=== PATIENT | male | born 1960 | race Caucasian/White ===

== ENCOUNTER 2016-04-19 02:39 | Emergency (ER) | payer OTHER ==
[~2016-04-19] VITALS: Ht 177.8 cm; Wt 77.2 kg
[~2016-04-19 02:39] MED LIST: GLYB1.253 PO; LISI-515 PO; LORA-373 PO; METO100T PO; ZOFR4TAB PO
[2016-04-19] MEDS: SODIUM CHLOR 0.9% 1000 ML INJ 1,000 ML IV SCH ×2 (02:54→03:36)
[2016-04-19 02:55] VITALS: BP 194/101; PULSE 93; RESP 18; TEMP 98.2; O2SAT 99
[2016-04-19] MEDS ORDERED: ONDANSETRON HCL 4 MG/2 ML VIAL IV ONE ×2 (03:00→03:45)
--- NOTE | 2016-04-19 03:05 | PD ---
HPI Chief Complaint: nausea/vomiting Time Seen by Provider: 02:48 Travel History International Travel<30 days: No Contact w/Intl Traveler<30days: No Traveled to known affect area: No History of Present Illness HPI The patient is a 55-year-old male, [id number] diabetic, who has a history of gastroparesis. He states that he has been vomiting since 8 PM tonight. He states that he can usually be given fluids and Zofran and he quits vomiting and can go home. Usually doesn't check his blood sugars at home but here there around the 120 range. PFSH Past Medical History Asthma: No Autoimmune Disease: No Anxiety: No Depression: No Cancer: Yes (PROSTATE IN 2011) Cardiovascular Problems: Yes High Cholesterol: Yes Chemotherapy: No COPD: No Cerebrovascular Accident: No Diabetes: Yes Diminished Hearing: No Diverticulitis: No Endocrine: Yes Gastrointestinal Disorders: Yes (GASTROPARESIS) GERD: No Genitourinary: No Headaches: No Hiatal Hernia: No Heparin Induced Thrombocytopen: No Hypertension: Yes Immune Disorder: No Implanted Vascular Access Dvce: No Kidney Stones: No Musculoskeletal: No Neurologic: No Psychiatric: No Reproductive: No Respiratory: No Immunizations Current: Yes Migraines: No Pancreatitis: No Radiation Therapy: Yes (IN 2011) Renal Failure: No Seizures: No Sickle Cell Disease: No Thyroid Disease: No Triglycerides - High: Yes Ulcer: No PNEUMOCCOCAL Vaccine (Year): 2 Past Surgical History Abdominal Surgery: Yes (INGUINAL HERNIA) AICD: No Arteriovenous Shunt: No Cardiac Surgery: No Ear Surgery: No Endocrine Surgery: No Eye Surgery: No Genitourinary Surgery: No Gynecologic Surgery: No Insulin Pump: No Joint Replacement: No Neurologic Surgery: No Oral Surgery: No Pacemaker: No Thoracic Surgery: No Other Surgery: Yes (INGUINAL HERNIA REPAIR) Social History Alcohol Use: Yes (Socially ) Tobacco Use: No Substance Use: No Allergies-Medications (Allergen,Severity, Reaction): Coded Allergies: HMG-CoA Reductase Inhibitors (Verified Allergy, Severe, Twitching, 04/19/16 ) MYALGIA Reported Meds & Prescriptions Reported Meds & Active Scripts Active Zofran (Ondansetron HCl) 8 Mg Tab 8 Mg PO TID Reported Lorazepam 0.5 Mg Tab 0.5 Mg PO DAILY PRN Zofran (Ondansetron HCl) 4 Mg Tab 4 Mg PO Q6HR PRN Metoprolol Tartrate 100 Mg Tab 100 Mg PO BID Lisinopril 20 Mg Tab 20 Mg PO DAILY Glyburide 1.25 Mg Tab 1.25 Mg PO DAILY Take with meals at the same time each day Review of Systems Except as stated in HPI: all other systems reviewed are Neg Physical Exam Narrative GENERAL: Well-nourished, well-developed patient in moderate apparent distress with his nausea. SKIN: Warm and dry. HEAD: Normocephalic. EYES: No scleral icterus. No injection or drainage. NECK: Supple, trachea midline. No JVD or lymphadenopathy. CARDIOVASCULAR: Regular rate and rhythm without murmurs, gallops, or rubs. RESPIRATORY: Breath sounds equal bilaterally. No accessory muscle use. GASTROINTESTINAL: Abdomen soft, non-tender, nondistended. No guarding or rebound is present. MUSCULOSKELETAL: No cyanosis, or edema. BACK: Nontender without obvious deformity. No CVA tenderness. Data Data Last Documented VS Vital Signs Date Time Temp Pulse Resp B/P Pulse Ox O2 Delivery O2 Flow Rate FiO2 04/19/16 03:46 81 18 156/92 97 Room Air 04/19/16 02:55 98.2 Orders Ondansetron Inj (Zofran Inj) (04/19/16 03:00) Sodium Chlor 0.9% 1000 Ml Inj (Ns 1000 M (04/19/16 03:00) Ondansetron Inj (Zofran Inj) (04/19/16 03:45) Sodium Chlor 0.9% 1000 Ml Inj (Ns 1000 M (04/19/16 03:45) MDM Medical Decision Making Medical Screen Exam Complete: Yes Emergency Medical Condition: Yes Medical Record Reviewed: Yes Differential Diagnosis Gastroparesis, gastroenteritis, gastritis, dehydration Narrative Course It is now 0350 and the patient feels much better and wants to go home. He will be given 8 mg Zofran prescription. He needs to increase clear liquids and rest at home. If this is persistent, he should follow-up with his primary care physician next week. Additional Instructions: Rest and taking the Zofran 8 mg 3 times a day will probably work for you. Also , as you know, you need to increase her liquid intake. You probably will want to follow-up with her primary care physician next week. Med/Other Pt SpecificInfo: Prescription(s) given Scripts Ondansetron (Zofran)8 Mg Tab8 Mg PO TID #21 TAB Ref 0 Prov:Reji Richardson MD 04/19/16 Disposition: 01 DISCHARGE HOME Condition: Stable Reji Richardson MD Apr 19, 2016 03:04
[2016-04-19 03:09] VITALS: BP 165/82; PULSE 92; RESP 16; O2SAT 99
[2016-04-19] MEDS ORDERED: ZOFR8TAB PO (03:29)
[2016-04-19] MEDS ORDERED: SODIUM CHLOR 0.9% 1000 ML INJ 1,000 ML IV SCH (03:45)
[2016-04-19 03:46] VITALS: BP 156/92; PULSE 81; RESP 18; O2SAT 97
[2016-04-19 04:45] VITALS: BP 155/89
== END 2016-04-19 04:40 | disposition home or self-care (01) ==
LOC: PHED 02:39
DX: K31.84 Gastroparesis (principal); E11.9 Type 2 diabetes mellitus without complications; I10 Essential (primary) hypertension; E78.00 Pure hypercholesterolemia, unspecified
CPT/HCPCS: 96361; 96374; 96376; 99283; J2405; J7030

== ENCOUNTER 2016-06-22 05:36 | Emergency (ER) | payer OTHER ==
[~2016-06-22] VITALS: Ht 177.8 cm; Wt 75.0 kg
[~2016-06-22 05:36] MED LIST changes: +ZOFR8TAB PO
[2016-06-22 05:41] VITALS: BP 187/109; PULSE 93; RESP 18; TEMP 97.5; O2SAT 100
[2016-06-22] MEDS ORDERED: ONDANSETRON HCL 4 MG/2 ML VIAL IV PUSH ONE ×2 (06:00→06:30)
[2016-06-22] MEDS ORDERED: SODIUM CHLOR 0.9% 1000 ML INJ 1,000 ML IV ONE ×2 (06:00→06:30)
--- NOTE | 2016-06-22 06:02 | PD ---
HPI Chief Complaint: GI Complaint Time Seen by Provider: 05:51 Travel History International Travel<30 days: No Contact w/Intl Traveler<30days: No Traveled to known affect area: No History of Present Illness HPI 55 year old male presents to the emergency department for complaint of 2 days of nausea vomiting and generalized weakness. Patient is a type II diabetic with history of gastroparesis. Patient has had multiple visits to the emergency department for similar complaint. Patient denies chest pain shortness of breath abdominal pain or flank pain. No report of hematemesis or coffee-ground emesis. No report of diarrhea. Patient rates his pain 0/10 intensity. Patient states he was unable to manage the symptoms as an outpatient so follow decided to come to the emergency room for evaluation. He typically responds to IV fluids and Zofran. PFSH Past Medical History Narrative Medical Diabetes, gastroparesis, prostate cancer, dyslipidemia, hypertension, radiation therapy, hypertriglyceridemia, inguinal herniorrhaphy; alcohol use-socially; nursing notes reviewed Asthma: No Autoimmune Disease: No Anxiety: No Depression: No Cancer: Yes (PROSTATE IN 2011) Cardiovascular Problems: Yes High Cholesterol: Yes Chemotherapy: No COPD: No Cerebrovascular Accident: No Diabetes: Yes Patient Takes Glucophage: No Diminished Hearing: No Diverticulitis: No Endocrine: Yes Gastrointestinal Disorders: Yes (GASTROPARESIS) GERD: No Genitourinary: No Headaches: No Hiatal Hernia: No Heparin Induced Thrombocytopen: No Hypertension: Yes Immune Disorder: No Implanted Vascular Access Dvce: No Kidney Stones: No Musculoskeletal: No Neurologic: No Psychiatric: No Reproductive: No Respiratory: No Immunizations Current: Yes Migraines: No Pancreatitis: No Radiation Therapy: Yes (IN 2011) Renal Failure: No Seizures: No Sickle Cell Disease: No Thyroid Disease: No Triglycerides - High: Yes Ulcer: No Tetanus Vaccination: < 5 Years Influenza Vaccination: Yes PNEUMOCCOCAL Vaccine (Year): 2 Past Surgical History Abdominal Surgery: Yes (INGUINAL HERNIA) AICD: No Arteriovenous Shunt: No Cardiac Surgery: No Ear Surgery: No Endocrine Surgery: No Eye Surgery: No Genitourinary Surgery: No Gynecologic Surgery: No Insulin Pump: No Joint Replacement: No Neurologic Surgery: No Oral Surgery: No Pacemaker: No Thoracic Surgery: No Other Surgery: Yes (INGUINAL HERNIA REPAIR) Social History Alcohol Use: Yes (Socially ) Tobacco Use: No Substance Use: No Allergies-Medications (Allergen,Severity, Reaction): Coded Allergies: HMG-CoA Reductase Inhibitors (Verified Allergy, Severe, Twitching, 06/22/16 ) MYALGIA Reported Meds & Prescriptions Reported Meds & Active Scripts Active Zofran (Ondansetron HCl) 8 Mg Tab 8 Mg PO TID Reported Lorazepam 0.5 Mg Tab 0.5 Mg PO DAILY PRN Metoprolol Tartrate 100 Mg Tab 100 Mg PO BID Lisinopril 20 Mg Tab 20 Mg PO DAILY Glyburide 1.25 Mg Tab 1.25 Mg PO DAILY Take with meals at the same time each day Review of Systems Except as stated in HPI: all other systems reviewed are Neg General / Constitutional: No: Fever HENT: No: Congestion Cardiovascular: No: Chest Pain or Discomfort Respiratory: No: Shortness of Breath Gastrointestinal: Positive: Nausea, Vomiting, No: Abdominal Pain Genitourinary: No: Flank Pain Musculoskeletal: No: Pain Skin: No Rash Neurologic: Positive: Weakness Hematologic/Lymphatic: No: Lymph Node Enlargement Physical Exam Narrative GENERAL: Well-developed well-nourished male in obvious discomfort no respiratory distress tremulous. SKIN: Warm and dry. HEAD: Normocephalic. EYES: No scleral icterus. No injection or drainage. NECK: Supple, trachea midline. No JVD or lymphadenopathy. CARDIOVASCULAR: Regular rate and rhythm without murmurs, gallops, or rubs. RESPIRATORY: Breath sounds equal bilaterally. No accessory muscle use. GASTROINTESTINAL: Abdomen soft, non-tender, nondistended. MUSCULOSKELETAL: No cyanosis, or edema. BACK: Nontender without obvious deformity. No CVA tenderness. Data Data Last Documented VS Vital Signs Date Time Temp Pulse Resp B/P Pulse Ox O2 Delivery O2 Flow Rate FiO2 06/22/16 06:50 77 20 173/85 Room Air 06/22/16 05:41 97.5 100 Orders Complete Blood Count With Diff (06/22/16 05:51) Comprehensive Metabolic Panel (06/22/16 05:51) Lipase (06/22/16 05:51) Iv Access Insert/Monitor (06/22/16 05:51) Ecg Monitoring (06/22/16 05:51) Oximetry (06/22/16 05:51) Sodium Chlor 0.9% 1000 Ml Inj (Ns 1000 M (06/22/16 06:00) Magnesium (Mg) (06/22/16 05:51) Ondansetron Inj (Zofran Inj) (06/22/16 06:00) Electrocardiogram (06/22/16 ) Troponin I (06/22/16 05:51) Sodium Chlor 0.9% 1000 Ml Inj (Ns 1000 M (06/22/16 06:30) Ondansetron Inj (Zofran Inj) (06/22/16 06:30) Lorazepam Inj (Ativan Inj) (06/22/16 07:00) Labs Laboratory Tests Test 06/22/16 05:58 White Blood Count 10.3 TH/MM3 Red Blood Count 4.90 MIL/MM3 Hemoglobin 15.6 GM/DL Hematocrit 46.6 % Mean Corpuscular Volume 95.1 FL Mean Corpuscular Hemoglobin 31.9 PG Mean Corpuscular Hemoglobin 33.5 % Concent Red Cell Distribution Width 12.8 % Platelet Count 234 TH/MM3 Mean Platelet Volume 7.4 FL Neutrophils (%) (Auto) 80.6 % Lymphocytes (%) (Auto) 8.6 % Monocytes (%) (Auto) 10.3 % Eosinophils (%) (Auto) 0.1 % Basophils (%) (Auto) 0.4 % Neutrophils # (Auto) 8.3 TH/MM3 Lymphocytes # (Auto) 0.9 TH/MM3 Monocytes # (Auto) 1.1 TH/MM3 Eosinophils # (Auto) 0.0 TH/MM3 Basophils # (Auto) 0.0 TH/MM3 CBC Comment DIFF FINAL Differential Comment Sodium Level 135 MEQ/L Potassium Level 5.1 MEQ/L Chloride Level 93 MEQ/L Carbon Dioxide Level 25.5 MEQ/L Anion Gap 17 MEQ/L Blood Urea Nitrogen 23 MG/DL Creatinine 1.60 MG/DL Estimat Glomerular Filtration 45 ML/MIN Rate Random Glucose 218 MG/DL Calcium Level 9.4 MG/DL Magnesium Level 1.8 MG/DL Total Bilirubin 2.7 MG/DL Aspartate Amino Transf 60 U/L (AST/SGOT) Alanine Aminotransferase 68 U/L (ALT/SGPT) Alkaline Phosphatase 74 U/L Troponin I LESS THAN 0.02 NG/ML Total Protein 7.9 GM/DL Albumin 4.1 GM/DL Lipase 181 U/L MDM Medical Decision Making Medical Screen Exam Complete: Yes Emergency Medical Condition: Yes Medical Record Reviewed: Yes Interpretation(s) EKG: Normal sinus rhythm rate [address] elevation or injury pattern change noted artifact is present in V2 ma.8, not decreased troponin I: less than 0.02, not elevated CBC & BMP Diagram 06/22/16 05:58 Differential Diagnosis Vomiting, gastroparesis, gastritis, dehydration, ACS, also to consider alcohol withdrawal, benzodiazepine withdrawal Narrative Course IV access obtained specimens collected and sent for resulting; normal saline 1 L administered along with Zofran 4 mg IV @ 0620 reports somewhat improved --additional NS and zofran given At 6:55 AM patient is improved; lab values consistent with volume contracture consistent with dehydration after vomiting 2 days; bicarbonate is in normal range there is slight elevation and on gap but this is also reflective of his hydration status patient's EKG shows no injury pattern troponin I was less than 0.02. Magnesium is in normal range at 1.8. CBC is automated differential total white cell count is within normal range hemoglobin is stable platelet count within normal limits. Patient repeat VS remains hypertensive patient states he has not been able take his blood pressure medication for 2 days is aware that his blood sugars 218 again reports to have that available take his diabetic medication for 2 days also has prescription for lorazepam which he has not taken for 2 days (patient reports use of lorazepam on an as needed not daily basis) will administer Ativan IV times one dose; patient no longer reporting nausea no vomiting witnessed the emergency department and patient is desirous of a trial of oral hydration. Plan will be to discharge the patient to home as he tolerated oral hydration well. Diagnosis Primary Impression: Gastroparesis due to DM Additional Impressions: Dehydration Medication refill Referrals: Primary Care Physician call for appointment Patient Instructions: General Instructions Additional Instructions: Increase fluid hydration Take chronic daily medications as presently prescribed Follow-up with your primary care provider call office in a.m. to schedule follow -up appointment No work times one day Return to the emergency department for any concerns or change in condition Med/Other Pt SpecificInfo: Prescription(s) given Scripts Ondansetron Odt (Zofran Odt)4 Mg Tab4 Mg SL Q6HR PRN (Nausea/Vomiting) #10 TAB Ref 0 Prov:Adrinaa Simon MD 06/22/16 Lorazepam 0.5 Mg Tab0.5 Mg PO DAILY PRN (ANXIETY) #10 TAB Ref 0 Prov:Adriana Simon MD 06/22/16 Disposition: 01 DISCHARGE HOME Condition: Stable Adriana Simon MD Jun 22, 2016 06:02
[2016-06-22 06:07] LABS: AUTOMATED NEUTROPHIL # 8.3 TH/MM3 (1.8-7.7); BASOPHIL % 0.4 % (0.0-2.0); EOSINOPHIL % 0.1 % (0.0-4.0); HEMATOCRIT 46.6 % (39.0-51.0); HEMO FLAGS DIFF FINAL; LYMPH % 8.6 % (9.0-44.0); LYMPHOCYTE # 0.9 TH/MM3 (1.0-4.8); MEAN CELL VOLUME 95.1 FL (80.0-100.0); MEAN CORPUSCULAR HEMOGLOBIN 31.9 PG (27.0-34.0); MEAN CORPUSCULAR HGB CONC 33.5 % (32.0-36.0); MONO % 10.3 % (0.0-8.0); NEUT % 80.6 % (16.0-70.0); PLATELET COUNT 234 TH/MM3 (150-450); RED CELL DISTRIBUTION WIDTH 12.8 % (11.6-17.2); WHITE BLOOD COUNT 10.3 TH/MM3 (4.0-11.0)
[2016-06-22 06:14] LABS: CHLORIDE 93 MEQ/L (98-107); POTASSIUM 5.1 MEQ/L (3.5-5.1); SODIUM (NA) 135 MEQ/L (136-145)
[2016-06-22 06:18] LABS: ANION GAP 17 MEQ/L (5-15); BICARBONATE 25.5 MEQ/L (21.0-32.0); BLOOD UREA NITROGEN 23 MG/DL (7-18); MAGNESIUM 1.8 MG/DL (1.5-2.5)
[2016-06-22 06:21] LABS: ALT (GPT) 68 U/L (12-78); AST (GOT) 60 U/L (15-37); GLOMERULAR FILTRATION RATE 45 ML/MIN (>89)
[2016-06-22 06:23] LABS: TOTAL BILIRUBIN ADULT 2.7 MG/DL (0.2-1.0)
[2016-06-22 06:24] LABS: ALKALINE PHOSPHATASE 74 U/L (45-117)
[2016-06-22 06:50] VITALS: BP 173/85; PULSE 77; RESP 20
[2016-06-22 06:55] VITALS: BP 186/93; PULSE 84; RESP 18; O2SAT 97
[2016-06-22] MEDS ORDERED: LORazepam 2 MG/ML VIAL IV PUSH ONE ×2 (07:00→08:00)
[2016-06-22] MEDS ORDERED: ZOFR4TAB3 SL (07:00)
[2016-06-22] MEDS ORDERED: LORA-373 PO (07:00)
[2016-06-22 09:28] VITALS: BP 152/82; PULSE 102; RESP 18; O2SAT 96
--- NOTE | 2016-06-22 22:04 | EKG ---
Date Performed: 06/22/2016 Time Performed: 06:05:54 PTAGE: 55 years EKG: Sinus rhythm . Since previous tracing, no significant change noted Normal ECG PREVIOUS TRACING : 02/28/16 23.00.21 DOCTOR: Aby Swift Interpretating Date/Time 06/22/2016 22:04:05
== END 2016-06-22 09:30 | disposition home or self-care (01) ==
LOC: PHED 05:36
DX: E11.43 Type 2 diabetes mellitus with diabetic autonomic (poly)neuropathy (principal); K31.84 Gastroparesis; E86.0 Dehydration; E78.5 Hyperlipidemia, unspecified; E78.1 Pure hyperglyceridemia; I10 Essential (primary) hypertension; Z79.4 Long term (current) use of insulin; Z76.0 Encounter for issue of repeat prescription; Z85.46 Personal history of malignant neoplasm of prostate
CPT/HCPCS: 80053; 83690; 83735; 84484; 85025; 93005; 96361; 96374; 96375; 96376; 99285; J2060; J2405; J7030

== ENCOUNTER 2016-07-20 22:25 | Observation (INO) | payer OTHER ==
[~2016-07-20] VITALS: Ht 175.3 cm; Wt 79.5 kg
[~2016-07-20 22:25] MED LIST changes: -ZOFR4TAB PO; +ZOFR4TAB3 SL
[2016-07-20 22:32] VITALS: BP 210/130; PULSE 107; RESP 20; TEMP 97.4; O2SAT 98
[2016-07-20 22:40] VITALS: BP 213/108; PULSE 107; RESP 18; TEMP 97.4; O2SAT 98
--- NOTE | 2016-07-20 23:10 | PD ---
HPI Chief Complaint: GI Complaint Time Seen by Provider: 23:01 Travel History International Travel<30 days: No Contact w/Intl Traveler<30days: No Traveled to known affect area: No History of Present Illness HPI 56-year-old male presents to the emergency department by private transportation for complaint of nausea and vomiting related to his recurrent gastroparesis. Patient is a diabetic. Patient states he felt well yesterday and this morning started noticing nausea and then developed vomiting was unable to take his morning medications and allergies symptoms persisted started and noted that he was becoming dehydrated and developing tremulousness. Patient states this is his typical presentation when he has exacerbation of his gastroparesis. Patient states that he typically receives IV fluids and Zofran vomiting resolves he is able to take his oral medications and he typically is able to go home. Patient states this episode "snuck up on me". No report of coffee- ground emesis or hematemesis. Patient denies any shortness of breath chest pain or abdominal pain. No diarrhea. Patient is diabetic but has not been monitoring his blood sugars. Patient has been seen numerous times in the emergency department between [facility] and [facility] for similar complaint. Patient is out of his Zofran. Due to vomiting was not able to take his blood pressure medications today. [facility] Past Medical History Narrative Medical Diabetes, gastroparesis, hypertension, dyslipidemia, prostate cancer with radiation therapy, herniorrhaphy, alcohol use ("wine at dinner, beer with wings "); nursing notes reviewed Asthma: No Autoimmune Disease: No Anxiety: No Depression: No Cancer: Yes (PROSTATE IN 2011) Cardiovascular Problems: Yes High Cholesterol: Yes Chemotherapy: No COPD: No Cerebrovascular Accident: No Diabetes: Yes Patient Takes Glucophage: Yes Diminished Hearing: No Diverticulitis: No Endocrine: Yes Gastrointestinal Disorders: Yes (GASTROPARESIS) GERD: No Genitourinary: No Headaches: No Hiatal Hernia: No Heparin Induced Thrombocytopen: No Hypertension: Yes Immune Disorder: No Implanted Vascular Access Dvce: No Kidney Stones: No Musculoskeletal: No Neurologic: No Psychiatric: No Reproductive: No Respiratory: No Immunizations Current: Yes Migraines: No Pancreatitis: No Radiation Therapy: Yes (IN 2011) Renal Failure: No Seizures: No Sickle Cell Disease: No Thyroid Disease: No Triglycerides - High: Yes Ulcer: No Tetanus Vaccination: > 5 Years Influenza Vaccination: Yes PNEUMOCCOCAL Vaccine (Year): 2 Past Surgical History Abdominal Surgery: Yes (INGUINAL HERNIA) AICD: No Arteriovenous Shunt: No Cardiac Surgery: No Ear Surgery: No Endocrine Surgery: No Eye Surgery: No Genitourinary Surgery: No Gynecologic Surgery: No Insulin Pump: No Joint Replacement: No Neurologic Surgery: No Oral Surgery: No Pacemaker: No Thoracic Surgery: No Other Surgery: Yes (INGUINAL HERNIA REPAIR) Social History Alcohol Use: Yes (Socially ) Tobacco Use: No Substance Use: No Allergies-Medications (Allergen,Severity, Reaction): Coded Allergies: HMG-CoA Reductase Inhibitors (Verified Allergy, Severe, Twitching, 07/20/16 ) MYALGIA Reported Meds & Prescriptions Reported Meds & Active Scripts Active Zofran (Ondansetron HCl) 8 Mg Tab 8 Mg PO TID Reported Tramadol (Tramadol HCl) 50 Mg Tab 50 Mg PO HS PRN Aspirin 81 Mg Tabdr 81 Mg PO DAILY Effexor (Venlafaxine HCl) 75 Mg Tab 75 Mg PO Q12H Metoprolol Tartrate 100 Mg Tab 100 Mg PO BID Lisinopril 20 Mg Tab 20 Mg PO DAILY Glyburide 1.25 Mg Tab 1.25 Mg PO DAILY Take with meals at the same time each day Review of Systems Except as stated in HPI: all other systems reviewed are Neg General / Constitutional: No: Fever, Chills HENT: No: Congestion Cardiovascular: No: Chest Pain or Discomfort Respiratory: No: Shortness of Breath Gastrointestinal: Positive: Nausea, Vomiting, No: Diarrhea, Abdominal Pain Genitourinary: No: Flank Pain Musculoskeletal: No: Myalgias, Arthralgias Skin: No Rash Neurologic: No: Weakness, Dizziness, Syncope Psychiatric: Positive: Anxiety Endocrine: No: Heat Intolerance Hematologic/Lymphatic: No: Easy Bruising Physical Exam Narrative GENERAL: Well-developed well-nourished thin male with tremor appears mildly anxious. SKIN: Warm and dry. HEAD: Atraumatic. Normocephalic. EYES: Pupils equal and round. No scleral icterus. No injection or drainage. ENT: No nasal bleeding or discharge. Mucous membranes pink and moist. NECK: Trachea midline. No JVD. CARDIOVASCULAR: Increased Regular rate and rhythm. RESPIRATORY: No accessory muscle use. Clear to auscultation. Breath sounds equal bilaterally. GASTROINTESTINAL: Abdomen soft, non-tender, nondistended. Hepatic and splenic margins not palpable. No guarding no rebound. MUSCULOSKELETAL: Extremities without clubbing, cyanosis, or edema. No obvious deformities. NEUROLOGICAL: Awake and alert. No obvious cranial nerve deficits. Motor grossly within normal limits. Five out of 5 muscle strength in the arms and legs. Tremor. Normal speech. PSYCHIATRIC: Appropriate mood and affect; insight and judgment normal. Data Data Last Documented VS Vital Signs Date Time Temp Pulse Resp B/P Pulse Ox O2 Delivery O2 Flow Rate FiO2 07/21/16 00:32 115 18 187/99 96 Room Air 07/20/16 22:40 97.4 Orders Complete Blood Count With Diff (07/20/16 23:01) Comprehensive Metabolic Panel (07/20/16 23:) Lipase (07/20/16 23:01) Iv Access Insert/Monitor (07/20/16 23:01) Ecg Monitoring (07/20/16 23:01) Oximetry (07/20/16 23:01) Sodium Chloride 0.9% Flush (Ns Flush) (07/20/16 23:15) Ua Includes Microscopic (07/20/16 23:01) Magnesium (Mg) (07/20/16 23:01) Blood Glucose (07/20/16 23:01) Ondansetron Inj (Zofran Inj) (07/20/16 23:15) Lorazepam Inj (Ativan Inj) (07/20/16 23:15) Sodium Chlor 0.9% 1000 Ml Inj (Ns 1000 M (07/20/16 23:15) Electrocardiogram (07/20/16 ) Troponin I (07/20/16 23:01) Enalaprilat Inj (Vasotec Inj) (07/20/16 23:15) Ondansetron Inj (Zofran Inj) (07/20/16 23:30) Insulin Human Regular Inj (Novolin R Inj (07/21/16 00:00) Magnesium Sulfate 1 Gm Premix (Magnesium (07/21/16 00:00) Thiamine Inj (Thiamine Inj) (07/21/16 00:00) Blood Gas Venous Ph (07/20/16 23:51) Lorazepam Inj (Ativan Inj) (07/21/16 00:00) Blood Glucose (07/20/16 23:51) Beta Hydroxybutyrate (Acetone) (07/20/16 23:00) Sodium Chlor 0.9% 1000 Ml Inj (Ns 1000 M (07/21/16 01:00) Admit Order (Ed Use Only) (07/21/16 ) Electrical Machinist / Telemetry DOMENIC.Q8H (07/21/16 00:57) Sips And Chips (07/21/16 00:57) Activity Bed Rest (07/21/16 00:57) ^ Saline Lock (07/21/16 00:57) Resp Oxygen Cristian C Titrat 1-4 L (07/21/16 ) Notify Dr: Other (07/21/16 00:57) Ondansetron Inj (Zofran Inj) (07/21/16 01:00) Sodium Chloride 0.9% Flush (Ns Flush) (07/21/16 09:00) Sodium Chloride 0.9% Flush (Ns Flush) (07/21/16 01:00) ^ For Further Orders (07/21/16 00:57) Labs Laboratory Tests Test 07/20/16 07/21/16 07/21/16 23:00 00:20 00:35 Sodium Level 132 MEQ/L Potassium Level 4.8 MEQ/L Chloride Level 91 MEQ/L Carbon Dioxide Level 19.0 MEQ/L Blood Urea Nitrogen 25 MG/DL Creatinine 1.60 MG/DL Random Glucose 310 MG/DL Calcium Level 9.3 MG/DL Magnesium Level 1.4 MG/DL Total Bilirubin 2.4 MG/DL Aspartate Amino Transf 60 U/L (AST/SGOT) Alanine Aminotransferase 88 U/L (ALT/SGPT) Alkaline Phosphatase 85 U/L Total Protein 8.1 GM/DL Albumin 3.9 GM/DL White Blood Count 16.2 TH/MM3 Red Blood Count 4.97 MIL/MM3 Hemoglobin 15.7 GM/DL Hematocrit 47.7 % Mean Corpuscular Volume 95.9 FL Mean Corpuscular Hemoglobin 31.6 PG Mean Corpuscular Hemoglobin 33.0 % Concent Red Cell Distribution Width 12.7 % Platelet Count 246 TH/MM3 Mean Platelet Volume 7.8 FL Neutrophils (%) (Auto) 92.0 % Lymphocytes (%) (Auto) 2.3 % Monocytes (%) (Auto) 5.3 % Eosinophils (%) (Auto) 0.2 % Basophils (%) (Auto) 0.2 % Neutrophils # (Auto) 14.9 TH/MM3 Lymphocytes # (Auto) 0.4 TH/MM3 Monocytes # (Auto) 0.9 TH/MM3 Eosinophils # (Auto) 0.0 TH/MM3 Basophils # (Auto) 0.0 TH/MM3 CBC Comment DIFF FINAL Differential Comment Anion Gap 22 MEQ/L Estimat Glomerular Filtration 45 ML/MIN Rate Troponin I LESS THAN 0.02 NG/ML Lipase 149 U/L B-Hydroxybutyrate 5.31 MMOL/L Venous Blood pH 7.33 Urine Color YELLOW Urine Turbidity CLEAR Urine pH 6.0 Urine Specific [place] 1.024 Urine Protein 300 OR GREATER mg/dL Urine Glucose (UA) 500 mg/dL Urine Ketones 80 OR GREATER mg/dL Urine Occult Blood SMALL Urine Nitrite NEG Urine Bilirubin NEG Urine Leukocyte Esterase NEG Urine RBC 4-9 /hpf Urine Squamous Epithelial 0-5 /hpf Cells Urine Hyaline Casts 15-19 /lpf Urine Mucus FEW /lpf MDM Medical Decision Making Medical Screen Exam Complete: Yes Emergency Medical Condition: Yes Medical Record Reviewed: Yes Interpretation(s) EKG: Sinus rhythm rate [address] elevation or injury pattern change or ectopy noted CBC & BMP Diagram 07/20/16 23:00 Differential Diagnosis Vomiting, dehydration, gastroparesis, uncontrolled diabetes, dka, alcohol withdrawal, uncontrolled hypertension, medication noncompliance, ACS Narrative Course Patient placed on cardiac catheterization technician IV access obtained specimens collected and sent for resulting EKG ordered; patient ordered Zofran 4 mg IV Ativan 1 mg IV and IV fluid bolus and Vasotec 1.25 mg IV CBC is automated differential leukocytosis 16,200 with 92% neutrophils/left shift Metabolic panel remarkable for bicarbonate of 19 and anion gap of 22 renal insufficiency been and creatinine 25 and 1.6 random glucose is 310; potassium is in normal range at 4.8, hypomagnesemia 1.4 LFTs total bilirubin is elevated at 2.4 AST and ALT are nonspecifically elevated at 60/88 respectively lipase is in normal range 149 Patient receiving IV fluids has almost completed 1 L patient with metabolic disturbance concerning for possibly diabetic versus alcohol related ketoacidosis venous pH is been ordered patient with hyper glycemia will be given low-dose Regular Insulin 1 along with additional IV fluids patient with volume contraction dehydration reflective of leukocytosis as well as pain and creatinine of 26 and 1.6 this is near patient's baseline but elevated. Patient reports nausea has improved and desires of attempting oral hydration will give ice chips and water however remains tremulous. Concerned that patient is an early alcohol withdrawal additional Ativan administered and plan will be to admit patient to the hospital for management of possible benzodiazepine withdrawal, early alcohol withdrawal, and gastroparesis with poorly controlled DM --will obtain venous pH and BHB for dka assessment; UA pending. Patient producing urine; venous pH 7.33 bicarb 21.6 BE-3.3, c/w metabolic acidosis patient receiving ongoing hydration; nausea and vomiting have resolved ; casee discussed with metal bonding crib attendant [facility] MD for admission --will admit to intermediate care; troponin, bhb, ua pending Patient reports feels improved, remains tachycardic HR: 110 ST Critical Care Narrative Aggregate critical care time was 40 minutes. Time to perform other separately billable procedures was not included in the critical care time. My time did not include minutes spent treating any other patients simultaneously or on activities that did not directly contribute to the patient's treatment. The services I provided to this patient were to treat and/or prevent clinically significant deterioration that could result in: DKA, shock, I provided critical care services requiring my management, as noted below: Chart data review, documentation time, medication orders and management, vital sign assessments/reviewing monitor data, ordering and reviewing lab tests, ordering and interpreting/reviewing x-rays and diagnostic studies, care of the patient and discussion of the patient with the admitting physicians. Sepsis Criteria SIRS Criteria (2 or more): Heart rate over 90, WBC > 19113, < 4000 or > 10% bands Physician Communication Physician Communication call placed to [facility] service --discussed with Dr Herrera --intermediate care admission-requests "holding orders" VS/diet/zofran; call to Dr Domingo remaining tachycardic, BHB 5, urine ketones --will change to dka protocol; notified fountain server patient going to ICU Diagnosis Primary Impression: Gastroparesis due to DM Additional Impressions: Alcohol use Dehydration Metabolic acidosis, increased anion gap Admitting Information Admitting Physician Requests: Admit Adriana Simon MD Jul 20, 2016 23:10
[2016-07-20] MEDS ORDERED: ONDANSETRON HCL 4 MG/2 ML VIAL IV PUSH ONE ×2 (23:15→23:30)
[2016-07-20] MEDS ORDERED: ENALAPRILAT 1.25 MG/ML VIAL IV PUSH ONE (23:15)
[2016-07-20] MEDS ORDERED: SODIUM CHLORIDE 0.9% FLUSH 10 ML FLUSH IVF PRN (23:15)
[2016-07-20] MEDS ORDERED: SODIUM CHLOR 0.9% 1000 ML INJ 1,000 ML IV ONE (23:15)
[2016-07-20] MEDS ORDERED: LORazepam 2 MG/ML VIAL IV PUSH ONE (23:15)
[2016-07-20 23:27] LABS: AUTOMATED NEUTROPHIL # 14.9 TH/MM3 (1.8-7.7); BASOPHIL % 0.2 % (0.0-2.0); EOSINOPHIL % 0.2 % (0.0-4.0); HEMATOCRIT 47.7 % (39.0-51.0); LYMPH % 2.3 % (9.0-44.0); LYMPHOCYTE # 0.4 TH/MM3 (1.0-4.8); MEAN CELL VOLUME 95.9 FL (80.0-100.0); MEAN CORPUSCULAR HEMOGLOBIN 31.6 PG (27.0-34.0); MONO % 5.3 % (0.0-8.0); PLATELET COUNT 246 TH/MM3 (150-450); RED BLOOD COUNT 4.97 MIL/MM3 (4.50-5.90); RED CELL DISTRIBUTION WIDTH 12.7 % (11.6-17.2); WHITE BLOOD COUNT 16.2 TH/MM3 (4.0-11.0)
[2016-07-20 23:28] VITALS: RESP 18; O2SAT 98
[2016-07-20 23:29] VITALS: BP 193/99; PULSE 102; RESP 18; O2SAT 99
[2016-07-20 23:30] LABS: HEMO FLAGS DIFF FINAL
[2016-07-20 23:35] LABS: CHLORIDE 91 MEQ/L (98-107); POTASSIUM 4.8 MEQ/L (3.5-5.1); SODIUM (NA) 132 MEQ/L (136-145)
[2016-07-20 23:39] LABS: ANION GAP 22 MEQ/L (5-15); BLOOD UREA NITROGEN 25 MG/DL (7-18); MAGNESIUM 1.4 MG/DL (1.5-2.5)
[2016-07-20 23:42] LABS: ALT (GPT) 88 U/L (12-78); AST (GOT) 60 U/L (15-37); GLOMERULAR FILTRATION RATE 45 ML/MIN (>89)
[2016-07-20 23:44] LABS: TOTAL BILIRUBIN ADULT 2.4 MG/DL (0.2-1.0)
[2016-07-20] MEDS ORDERED: ASPI1TAB69 PO (23:44)
[2016-07-20] MEDS ORDERED: VENL75TA PO (23:44)
[2016-07-20 23:45] LABS: ALKALINE PHOSPHATASE 85 U/L (45-117)
[2016-07-20] MEDS ORDERED: TRAM50TA PO (23:46)
[2016-07-21] MEDS ORDERED: INSULIN HUMAN REGULAR 1,000 UNITS/10 ML VIAL IV PUSH ONE
[2016-07-21] MEDS ORDERED: THIAMINE INJ 100 MG in SODIUM CHLORIDE 0.9% INJ 100 ML IV ONE ×2
[2016-07-21] MEDS ORDERED: LORazepam 2 MG/ML VIAL IV PUSH ONE
[2016-07-21] MEDS ORDERED: MAGNESIUM SULFATE 1 GM PREMIX 100 ML IV ONE
[2016-07-21 00:27] LABS: BETA-HYDROXYBUTYRATE 5.31 MMOL/L (0.00-0.39)
[2016-07-21 00:32] VITALS: BP 187/99; PULSE 115; RESP 18; O2SAT 96
[2016-07-21 00:48] LABS: BLOOD, URINE SMALL (NEG); GLUCOSE,URINE 500 mg/dL (NEG); NITRITE,URINE NEG (NEG)
[2016-07-21 00:55] LABS: KETONE, URINE 80 OR GREATER mg/dL (NEG)
[2016-07-21 00:56] LABS: URINE COLOR YELLOW (YELLW/STRAW)
[2016-07-21 00:57] LABS: HYALINE CAST, URINE 15-19 /lpf (RARE); MUCUS URINE FEW /lpf (OCC)
[2016-07-21 00:58] LABS: SQUAMOUS EPITHELIAL CELL URINE 0-5 /hpf (0-5)
[2016-07-21] MEDS ORDERED: SODIUM CHLORIDE 0.9% FLUSH 10 ML FLUSH IVF PRN (01:00)
[2016-07-21] MEDS ORDERED: ONDANSETRON HCL 4 MG/2 ML VIAL IV PRN (01:00)
[2016-07-21] MEDS ORDERED: SODIUM CHLOR 0.9% 1000 ML INJ 1,000 ML IV ONE (01:00)
[2016-07-21] MEDS ORDERED: LORazepam 2 MG TAB PO PRN (01:15)
[2016-07-21] MEDS ORDERED: LORazepam 1 MG TAB PO PRN (01:15)
[2016-07-21] MEDS ORDERED: FLUMAZENIL 0.5 MG/5 ML VIAL IV PUSH PRN (01:15)
[2016-07-21] MEDS ORDERED: LORazepam 2 MG/ML VIAL IV PUSH PRN ×4 (01:15)
[2016-07-21 01:17] VITALS: O2SAT 96
[2016-07-21] MEDS: SODIUM CHLOR 0.9% 1000 ML INJ 1,000 ML IV SCH ×6 (02:18→10:18)
[2016-07-21] MEDS ORDERED: INSULIN REGULAR (IV INFUSION) 100 UNITS in SODIUM CHLORIDE 0.9% INJ 99 ML IV SCH (02:30)
[2016-07-21] MEDS ORDERED: SODIUM PHOSPHATE INJ 15 MMOL in SODIUM CHLORIDE 0.9% INJ 100 ML IV PRN (02:30)
[2016-07-21] MEDS ORDERED: POTASSIUM CHLOR 20 MEQ PREMIX 100 ML IV PRN ×6 (02:30)
[2016-07-21] MEDS ORDERED: POTASSIUM CHLOR 40 MEQ PREMIX 100 ML IV PRN ×2 (02:30)
[2016-07-21] MEDS ORDERED: SODIUM BICARBONATE 8.4% SOLN 50 MEQ/50 ML VIAL IV PRN ×2 (02:30)
[2016-07-21 02:35] VITALS: BP 171/88; PULSE 108; RESP 18; O2SAT 95
--- NOTE | 2016-07-21 03:42 | RADHPO ---
EXAM DATE/TIME: 07/21/2016 02:54 [place] COMPARISON: CHEST SINGLE AP, February 28, 2016, 23:06. INDICATIONS : Fever. MEDICAL HISTORY : Hypertension. Diabetes mellitus type II. SURGICAL HISTORY : None. ENCOUNTER: Initial ACUITY: 1 day PAIN SCORE: 0/10 LOCATION: Bilateral chest FINDINGS: A single view of the chest demonstrates the lungs to be symmetrically aerated without evidence of mas s, infiltrate or effusion. The cardiomediastinal contours are unremarkable. No change in the multipl e old left-sided rib fractures. CONCLUSION: No acute pulmonary infiltrates. No significant change. Oliver Padilla MD on July 21, 2016 at 3:40 Board Certified Radiologist. This report was verified electronically.
[2016-07-21] MEDS: DEXT 5%-NACL 0.9% 1000 ML INJ 1,000 ML IV SCH ×3 (03:56→11:17)
[2016-07-21] MEDS: METOPROLOL TARTRATE 100 MG TAB PO SCH ×2 (04:35→08:12)
[2016-07-21] MEDS ORDERED: CHLORHEXIDINE GLUCONATE 2 % 1 PACK (2 CLOTHS)(extra cloths) TOPICAL PRN (04:45)
[2016-07-21 05:00] VITALS: PULSE 94
[2016-07-21] MEDS ORDERED: traMADol HCL 50 MG TAB PO PRN (07:15)
[2016-07-21 08:00] VITALS: PULSE 75
[2016-07-21 08:42] LABS: BICARBONATE 29.4 MEQ/L (21.0-32.0); MAGNESIUM 1.7 MG/DL (1.5-2.5)
[2016-07-21] MEDS ORDERED: SODIUM CHLORIDE 0.9% FLUSH 10 ML FLUSH IV FLUSH SCH (09:00)
[2016-07-21] MEDS ORDERED: ASPIRIN EC 81 MG TABEC PO SCH (09:00)
[2016-07-21] MEDS ORDERED: VENLAFAXINE HCL XR 75 MG CAP PO SCH (09:00)
[2016-07-21 10:00] VITALS: PULSE 78
--- NOTE | 2016-07-21 10:15 | HHI.HP ---
HPI Service [facility] Hospitalists Primary Care Physician Vamsi Vazquez MD, PhD Admission Diagnosis Gastroparesis; DM; dehydration; alcohol use; metabolic disturbance Chief Complaint: recurrent nausea and vomit was out of his zofran Travel History International Travel<30 Days: No Contact w/Intl Traveler <30 Da: No Traveled to Known Affected Are: No Sepsis Criteria SIRS Criteria (2 or more): Heart rate over 90, WBC > 17858, < 4000 or > 10% bands History of Present Illness 56-year-old male presents to the emergency department by private transportation for complaint of nausea and vomiting related to his recurrent gastroparesis. Patient is a diabetic. Patient states he felt well yesterday and this morning started noticing nausea and then developed vomiting was unable to take his morning medications and allergies symptoms persisted started and noted that he was becoming dehydrated and developing tremulousness. Patient states this is his typical presentation when he has exacerbation of his gastroparesis. Patient states that he typically receives IV fluids and Zofran vomiting resolves he is able to take his oral medications and he typically is able to go home. Patient states this episode "snuck up on me". No report of coffee- ground emesis or hematemesis. Patient denies any shortness of breath chest pain or abdominal pain. No diarrhea. Patient is diabetic but has not been monitoring his blood sugars. Patient has been seen numerous times in the emergency department between [facility] and [facility] for similar complaint. Patient is out of his Zofran. Due to vomiting was not able to take his blood pressure medications today. Patient really not drinker occasional beer and did have elevated heart rate as he was unable to take po b jj and had no zofran and did not take diabetic medication. Patient did have criteria for DKA mild on admit and all symptoms have resolved and wants to go home. I will advance diet d/c DKA orders and restart po medications. [facility] Review of Systems Gastrointestinal: COMPLAINS OF: Nausea, Vomiting Past Family Social History Past Medical History diabetes,gastroparesis,hypertension,hyperlipidemia,prostate cancer with RT Past Surgical History hernia repair Reported Medications tramadol,zofran 8mg tid,asa81,effexor 75 q 12,metoprolol 100 bid,lisinopril 20 glyburide 1.25 bid Allergies: Coded Allergies: HMG-CoA Reductase Inhibitors (Verified Allergy, Severe, Twitching, 07/20/16 ) MYALGIA Social History occasional beer Physical Exam Vital Signs Vital Signs Date Time Temp Pulse Resp B/P Pulse Ox O2 Delivery O2 Flow Rate FiO2 07/21/16 05:00 94 07/21/16 03:52 18 96 07/21/16 02:35 18 07/21/16 02:35 108 18 171/88 95 Room Air 07/21/16 01:17 96 21 07/21/16 00:32 115 18 187/99 96 Room Air 07/21/16 00:32 18 07/20/16 23:29 102 18 193/99 99 Room Air 07/20/16 23:28 18 98 Room Air 07/20/16 22:46 18 07/20/16 22:40 97.4 107 18 213/108 98 07/20/16 22:32 97.4 107 20 210/130 98 Physical Exam GENERAL: This is a well-nourished, well-developed patient, in no apparent distress. SKIN: No rashes, ecchymoses or lesions. Cool and dry. HEAD: Atraumatic. Normocephalic. No temporal or scalp tenderness. EYES: Pupils equal round and reactive. Extraocular motions intact. No scleral icterus. No injection or drainage. ENT: Nose without bleeding, purulent drainage or septal hematoma. Throat without erythema, tonsillar hypertrophy or exudate. Uvula midline. Airway patent. NECK: Trachea midline. No JVD or lymphadenopathy. Supple, nontender, no meningeal signs. CARDIOVASCULAR: Regular rate and rhythm without murmurs, gallops, or rubs. RESPIRATORY: Clear to auscultation. Breath sounds equal bilaterally. No wheezes , rales, or rhonchi. GASTROINTESTINAL: Abdomen soft, non-tender, nondistended. No hepato-splenomegaly , or palpable masses. No guarding. MUSCULOSKELETAL: Extremities without clubbing, cyanosis, or edema. No joint tenderness, effusion, or edema noted. No calf tenderness. Negative Homans sign bilaterally. NEUROLOGICAL: Awake and alert. Cranial nerves II through XII intact. Motor and sensory grossly within normal limits. Five out of 5 muscle strength in all muscle groups. Normal speech. Laboratory Laboratory Tests Test 07/20/16 07/21/16 07/21/16 07/21/16 23:00 00:20 00:35 07:50 Sodium Level 132 137 Potassium Level 4.8 4.0 Chloride Level 91 98 Carbon Dioxide Level 19.0 29.4 Blood Urea Nitrogen 25 23 Creatinine 1.60 1.20 Random Glucose 310 118 Calcium Level 9.3 7.7 Magnesium Level 1.4 1.7 Total Bilirubin 2.4 Aspartate Amino Transf 60 (AST/SGOT) Alanine Aminotransferase 88 (ALT/SGPT) Alkaline Phosphatase 85 Total Protein 8.1 Albumin 3.9 White Blood Count 16.2 Red Blood Count 4.97 Hemoglobin 15.7 Hematocrit 47.7 Mean Corpuscular Volume 95.9 Mean Corpuscular Hemoglobin 31.6 Mean Corpuscular Hemoglobin 33.0 Concent Red Cell Distribution Width 12.7 Platelet Count 246 Mean Platelet Volume 7.8 Neutrophils (%) (Auto) 92.0 Lymphocytes (%) (Auto) 2.3 Monocytes (%) (Auto) 5.3 Eosinophils (%) (Auto) 0.2 Basophils (%) (Auto) 0.2 Neutrophils # (Auto) 14.9 Lymphocytes # (Auto) 0.4 Monocytes # (Auto) 0.9 Eosinophils # (Auto) 0.0 Basophils # (Auto) 0.0 CBC Comment DIFF FINAL Differential Comment Anion Gap 22 10 Estimat Glomerular Filtration 45 62 Rate Troponin I LESS THAN 0.02 Lipase 149 B-Hydroxybutyrate 5.31 Venous Blood pH 7.33 Urine Color YELLOW Urine Turbidity CLEAR Urine pH 6.0 Urine Specific [place] 1.024 Urine Protein 300 OR GREATER Urine Glucose (UA) 500 Urine Ketones 80 OR GREATER Urine Occult Blood SMALL Urine Nitrite NEG Urine Bilirubin NEG Urine Leukocyte Esterase NEG Urine RBC 4-9 Urine Squamous Epithelial 0-5 Cells Urine Hyaline Casts 15-19 Urine Mucus FEW Phosphorus Level 2.2 Result Diagram: 07/20/16 2300 07/21/16 0750 Imaging Last 24 hours Impressions Chest X-Ray 07/21/16 0000 Signed Impressions: Service Date/Time: Thursday, July 21, 2016 02:54 - CONCLUSION: No acute pulmonary infiltrates. No significant change. Oliver Padilla MD Course ekg no acute changes,in ER started on IV fluids,insulin,ativan prn zofran and did well Assessment and Plan Problem List: (1) Metabolic acidosis, increased anion gap Status: Acute Plan: improved this am wants to go home (2) Gastroparesis due to DM Status: Acute Plan: responded to IV zofran ran out of PO zofran at home (3) Hypertension Status: Chronic Plan: continue home medication Assessment and Plan if tolerates po intake this am will discharge with zofran put in to [facility] pharmacy edgwwater and will discharge Code Status full Discussed Condition With patient Rayray Choudhury MD Jul 21, 2016 10:15
[2016-07-21] MEDS ORDERED: PILL SPLITTER OTHER PRN (10:30)
[2016-07-21] MEDS ORDERED: GLIM2TAB PO (12:12)
--- NOTE | 2016-07-21 12:13 | HHI.DCPOC ---
Discharge Care Plan Diagnosis: (1) Metabolic acidosis, increased anion gap (2) Gastroparesis due to DM (3) Dehydration Goals to Promote Your Health * To prevent worsening of your condition and complications * To maintain your health at the optimal level Directions to Meet Your Goals Take your medications as prescribed Follow your dietary instruction Follow activity as directed Keep your appointments as scheduled Take your immunizations and boosters as scheduled If your symptoms worsen call your PCP, if no PCP go to Urgent Care Center or Emergency Room Smoking is Dangerous to Your Health. Avoid second hand smoke Call the 24-hour hour crisis hotline for domestic abuse at Rayray Choudhury MD Jul 21, 2016 12:13
--- NOTE | 2016-07-21 12:16 | HHI.DS ---
Discharge Summary Admission Date Jul 21, 2016 at 01:01 Admitting Diagnosis Gastroparesis; DM; dehydration; alcohol use; metabolic disturbance (1) Metabolic acidosis, increased anion gap (2) Gastroparesis due to DM Diagnosis: Principal (3) Hypertension Diagnosis: Secondary Brief History 56-year-old male presents to the emergency department by private transportation for complaint of nausea and vomiting related to his recurrent gastroparesis. Patient is a diabetic. Patient states he felt well yesterday and this morning started noticing nausea and then developed vomiting was unable to take his morning medications and allergies symptoms persisted started and noted that he was becoming dehydrated and developing tremulousness. Patient states this is his typical presentation when he has exacerbation of his gastroparesis. Patient states that he typically receives IV fluids and Zofran vomiting resolves he is able to take his oral medications and he typically is able to go home. Patient states this episode "snuck up on me". No report of coffee- ground emesis or hematemesis. Patient denies any shortness of breath chest pain or abdominal pain. No diarrhea. Patient is diabetic but has not been monitoring his blood sugars. Patient has been seen numerous times in the emergency department between [facility] and [facility] for similar complaint. Patient is out of his Zofran. Due to vomiting was not able to take his blood pressure medications today. Patient really not drinker occasional beer and did have elevated heart rate as he was unable to take po b jj and had no zofran and did not take diabetic medication. Patient did have criteria for DKA mild on admit and all symptoms have resolved and wants to go home. I will advance diet d/c DKA orders and restart po medications. [facility] CBC/BMP: 07/20/16 2300 07/21/16 0750 Significant Findings Laboratory Tests Test 07/20/16 07/21/16 07/21/16 07/21/16 23:00 00:20 00:35 07:50 Sodium Level 132 MEQ/L (136-145) Chloride Level 91 MEQ/L (98-107) Carbon Dioxide Level 19.0 MEQ/L (21.0-32.0) Blood Urea Nitrogen 25 MG/DL (7-18) 23 MG/DL (7-18) Creatinine 1.60 MG/DL (0.60-1.30) Random Glucose 310 MG/DL 118 MG/DL (74-106) (74-106) Magnesium Level 1.4 MG/DL (1.5-2.5) Total Bilirubin 2.4 MG/DL (0.2-1.0) Aspartate Amino Transf 60 U/L (15-37) (AST/SGOT) Alanine Aminotransferase 88 U/L (12-78) (ALT/SGPT) White Blood Count 16.2 TH/MM3 (4.0-11.0) Neutrophils (%) (Auto) 92.0 % (16.0-70.0) Lymphocytes (%) (Auto) 2.3 % (9.0-44.0) Neutrophils # (Auto) 14.9 TH/MM3 (1.8-7.7) Lymphocytes # (Auto) 0.4 TH/MM3 (1.0-4.8) Anion Gap 22 MEQ/L (5-15) Estimat Glomerular Filtration 45 ML/MIN (>89) 62 ML/MIN (>89) Rate Troponin I LESS THAN 0.02 NG/ML (0.02-0.05) B-Hydroxybutyrate 5.31 MMOL/L (0.00-0.39) Venous Blood pH 7.33 (7.360-7.400) Urine Protein 300 OR GREATER mg/dL (NEG-TRACE) Urine Glucose (UA) 500 mg/dL (NEG) Urine Ketones 80 OR GREATER mg/dL (NEG) Urine Occult Blood SMALL (NEG) Urine RBC 4-9 /hpf (0-3) Urine Hyaline Casts 15-19 /lpf (RARE) Urine Mucus FEW /lpf (OCC) Calcium Level 7.7 MG/DL (8.5-10.1) Phosphorus Level 2.2 MG/DL (2.5-4.9) PE at Discharge GENERAL: SKIN: Warm and dry. HEAD: Atraumatic. Normocephalic. EYES: Pupils equal and round. No scleral icterus. No injection or drainage. ENT: No nasal bleeding or discharge. Mucous membranes pink and moist. NECK: Trachea midline. No JVD. CARDIOVASCULAR: Regular rate and rhythm. RESPIRATORY: No accessory muscle use. Clear to auscultation. Breath sounds equal bilaterally. GASTROINTESTINAL: Abdomen soft, non-tender, nondistended. Hepatic and splenic margins not palpable. MUSCULOSKELETAL: Extremities without clubbing, cyanosis, or edema. No obvious deformities. NEUROLOGICAL: Awake and alert. No obvious cranial nerve deficits. Motor grossly within normal limits. Five out of 5 muscle strength in the arms and legs. Normal speech. PSYCHIATRIC: Appropriate mood and affect; insight and judgment normal. Hospital Course Patient started on IV fluid ,mild DKA was on protocol and responded well . This am restarted regular meds . Patient with gastroparesis and did not have his zofran which caused symptoms all resolved eatting well will be discharged with follow up PCP and follow up labs ordered to check wbc count and glucose. Pt Condition on Discharge: Good Discharge Disposition: Discharge Home Discharge Instructions DIET: Follow Instructions for: Diabetic Diet Activities you can perform: Regular-No Restrictions New Medications: Glimepiride (Glimepiride) 2 Mg Tab 2 MG PO BIDAC Blood Sugar Management #60 Ref 0 TAB Continued Medications: Aspirin (Aspirin) 81 Mg Tabdr 81 MG PO DAILY TAB Lisinopril (Lisinopril) 20 Mg Tab 20 MG PO DAILY #30 Ref 0 TAB Metoprolol Tartrate (Metoprolol Tartrate) 100 Mg Tab 100 MG PO BID #60 Ref 0 TAB Ondansetron (Zofran) 8 Mg Tab 8 MG PO TID Nausea/Vomiting #21 Ref 0 TAB Tramadol (Tramadol) 50 Mg Tab 50 MG PO HS PRN PAIN Ref 0 TAB Venlafaxine (Effexor) 75 Mg Tab 75 MG PO Q12H #60 Ref 0 TAB Discontinued Medications: Glyburide (Glyburide) 1.25 Mg Tab 1.25 MG PO DAILY Take with meals at the same time each day Blood Sugar Management #30 Ref 0 TAB Rayray Choudhury MD Jul 21, 2016 12:16
[2016-07-21] MEDS ORDERED: glyBURIDE 2.5 MG TAB PO SCH (17:00)
[2016-07-22] MEDS ORDERED: CHLORHEXIDINE GLUCONATE 2 % 1 PACK (2 CLOTHS)(taper/protocol) TOPICAL SCH (04:00)
--- NOTE | 2016-07-22 14:12 | EKG ---
Date Performed: 07/20/2016 Time Performed: 23:22:54 PTAGE: 56 years EKG: Sinus rhythm Normal ECG Compared to prior tracing no significant change PREVIOUS TRACING : 06/22/2016 06.05 DOCTOR: Harsh Bosch Interpretating Date/Time 07/22/2016 14:08:06
== END 2016-07-21 12:40 | disposition home or self-care (01) ==
LOC: PHED 22:25 → PHEDA 07-21 01:01 → INTOOBSV 07-21 01:01 → PHICU 07-21 03:34
PROVIDERS: ADMIT Internal Medicine; ATTEND Internal Medicine
DX: K31.84 Gastroparesis (principal); E11.43 Type 2 diabetes mellitus with diabetic autonomic (poly)neuropathy; E86.0 Dehydration; E13.10 Other specified diabetes mellitus with ketoacidosis without coma; Z85.46 Personal history of malignant neoplasm of prostate; I10 Essential (primary) hypertension; E78.5 Hyperlipidemia, unspecified; E78.00 Pure hypercholesterolemia, unspecified; Z79.899 Other long term (current) drug therapy; Z79.84 Long term (current) use of oral hypoglycemic drugs; D72.829 Elevated white blood cell count, unspecified; E83.42 Hypomagnesemia; F10.239 Alcohol dependence with withdrawal, unspecified; R00.0 Tachycardia, unspecified
CPT/HCPCS: 71010; 80048; 80053; 81001; 82010; 82800; 82948; 83690; 83735; 84100; 84484; 85025; 87641; 93005; 96361; 96365; 96375; 96376; 99291; G0378; J1815; J2060; J2405; J3411; J3475; J7030; J7042

== ENCOUNTER 2016-09-02 15:20 | Emergency (ER) | payer OTHER ==
[~2016-09-02] VITALS: Ht 177.8 cm; Wt 77.0 kg
[~2016-09-02 15:20] MED LIST changes: +ASPI1TAB69 PO; +GLIM2TAB PO; -GLYB1.253 PO; -LORA-373 PO; +TRAM50TA PO; +VENL75TA PO; -ZOFR4TAB3 SL
[2016-09-02 15:21] VITALS: BP 163/87; PULSE 72; RESP 19; TEMP 97.7; O2SAT 100
--- NOTE | 2016-09-02 16:24 | PD ---
HPI . Recurrent gastroparesis Chief Complaint: GI Complaint Time Seen by Provider: 16:24 Travel History International Travel<30 days: No Contact w/Intl Traveler<30days: No Traveled to known affect area: No History of Present Illness HPI 56-year-old male with diabetes and hyperlipidemia here with complaints of gastroparesis. Patient says he frequently has bouts of gastroparesis and requires IV hydration and Zofran. He tells me medially after receiving both treatments he is up and running without any complications. He tells me that he usually encounters gastroparesis if he has not had enough many meals throughout the day or enough fluids. He says for the past 1-1/2 days he's been experiencing some intermittent nausea and dry heaving. He denies any actual vomiting. He denies any abdominal pain. PFSH Past Medical History Asthma: No Autoimmune Disease: No Anxiety: No Depression: No Cancer: Yes (PROSTATE IN 2011) Cardiovascular Problems: Yes High Cholesterol: Yes Chemotherapy: No COPD: No Cerebrovascular Accident: No Diabetes: Yes Diminished Hearing: No Diverticulitis: No Endocrine: Yes Gastrointestinal Disorders: Yes (GASTROPARESIS) GERD: No Genitourinary: No Headaches: No Hiatal Hernia: No Heparin Induced Thrombocytopen: No Hypertension: Yes Immune Disorder: No Implanted Vascular Access Dvce: No Kidney Stones: No Musculoskeletal: No Neurologic: No Psychiatric: No Reproductive: No Respiratory: No Immunizations Current: Yes Migraines: No Pancreatitis: No Radiation Therapy: Yes (IN 2011) Renal Failure: No Seizures: No Sickle Cell Disease: No Thyroid Disease: No Triglycerides - High: Yes Ulcer: No PNEUMOCCOCAL Vaccine (Year): 2 Past Surgical History Abdominal Surgery: Yes (INGUINAL HERNIA) AICD: No Arteriovenous Shunt: No Cardiac Surgery: No Ear Surgery: No Endocrine Surgery: No Eye Surgery: No Genitourinary Surgery: No Gynecologic Surgery: No Insulin Pump: No Joint Replacement: No Neurologic Surgery: No Oral Surgery: No Pacemaker: No Thoracic Surgery: No Other Surgery: Yes (INGUINAL HERNIA REPAIR) Social History Alcohol Use: Yes (Socially ) Tobacco Use: No Substance Use: No Allergies-Medications (Allergen,Severity, Reaction): Coded Allergies: HMG-CoA Reductase Inhibitors (Verified Allergy, Severe, Twitching, 09/02/16) MYALGIA Reported Meds & Prescriptions Reported Meds & Active Scripts Active Glimepiride 2 Mg Tab 2 Mg PO BIDAC Zofran (Ondansetron HCl) 8 Mg Tab 8 Mg PO TID Reported Tramadol (Tramadol HCl) 50 Mg Tab 50 Mg PO HS PRN Aspirin 81 Mg Tabdr 81 Mg PO DAILY Effexor (Venlafaxine HCl) 75 Mg Tab 75 Mg PO Q12H Metoprolol Tartrate 100 Mg Tab 100 Mg PO BID Lisinopril 20 Mg Tab 20 Mg PO DAILY Review of Systems General / Constitutional: No: Fever Eyes: No: Visual changes HENT: No: Headaches Cardiovascular: No: Chest Pain or Discomfort Respiratory: No: Shortness of Breath Gastrointestinal: Positive: Nausea, No: Vomiting, Abdominal Pain Genitourinary: No: Dysuria Musculoskeletal: No: Pain Skin: No Rash Neurologic: No: Weakness Psychiatric: No: Depression Endocrine: No: Polydipsia Hematologic/Lymphatic: No: Easy Bruising Physical Exam Narrative GENERAL: AAO x 3, no acute distress, Well-nourished, well-developed patient. SKIN: Warm and dry. No visible rashes or bruising. HEAD: Normocephalic and atraumatic. EYES: No scleral icterus. No injection or drainage. EOM intact, PERRLA ENT: No nasal drainage noted. Mucous membranes pink. Airway patent. Moist mucous membranes NECK: Supple, trachea midline. No JVD. CARDIOVASCULAR: Regular rate and rhythm without murmurs, gallops, or rubs. RESPIRATORY: Breath sounds equal bilaterally. No accessory muscle use. No rhonchi or rales. GASTROINTESTINAL: Abdomen soft, non-tender, nondistended. EXTREMITIES: No cyanosis or edema. BACK: Nontender without obvious deformity. No CVA tenderness. NEURO: CN II-12 intact, shake backboard notcher stenght normal b/l, UE and LE 5/5, no focal deficits PSYCH: AAO x 3, normal affect. Data Data Last Documented VS Vital Signs Date Time Temp Pulse Resp B/P Pulse Ox O2 Delivery O2 Flow Rate FiO2 09/02/16 15:21 97.7 72 19 163/87 100 Room Air Orders ^ Insert Iv (09/02/16 16:30) Diet Npo (09/02/16 Dinner) Complete Blood Count With Diff (09/02/16 16:30) Comprehensive Metabolic Panel (09/02/16 16:30) Beta Hydroxybutyrate (Acetone) (09/02/16 16:30) Sodium Chlor 0.9% 1000 Ml Inj (Ns 1000 M (09/02/16 16:30) Ondansetron Inj (Zofran Inj) (09/02/16 16:30) Electrocardiogram (09/02/16 15:44) Labs Laboratory Tests Test 09/02/16 16:55 White Blood Count 16.0 TH/MM3 Red Blood Count 4.58 MIL/MM3 Hemoglobin 14.9 GM/DL Hematocrit 43.1 % Mean Corpuscular Volume 94.0 FL Mean Corpuscular Hemoglobin 32.6 PG Mean Corpuscular Hemoglobin 34.7 % Concent Red Cell Distribution Width 12.5 % Platelet Count 192 TH/MM3 Mean Platelet Volume 7.8 FL Neutrophils (%) (Auto) 81.8 % Lymphocytes (%) (Auto) 4.1 % Monocytes (%) (Auto) 13.9 % Eosinophils (%) (Auto) 0.0 % Basophils (%) (Auto) 0.2 % Neutrophils # (Auto) 13.1 TH/MM3 Lymphocytes # (Auto) 0.7 TH/MM3 Monocytes # (Auto) 2.2 TH/MM3 Eosinophils # (Auto) 0.0 TH/MM3 Basophils # (Auto) 0.0 TH/MM3 CBC Comment AUTO DIFF Differential Total Cells 100 Counted Neutrophils % (Manual) 84 % Lymphocytes % 5 % Monocytes % 11 % Neutrophils # (Manual) 13.4 TH/MM3 Differential Comment FINAL DIFF MANUAL Platelet Estimate NORMAL Platelet Morphology Comment NORMAL Sodium Level 125 MEQ/L Potassium Level 5.3 MEQ/L Chloride Level 88 MEQ/L Carbon Dioxide Level 29.8 MEQ/L Anion Gap 7 MEQ/L Blood Urea Nitrogen 28 MG/DL Creatinine 1.68 MG/DL Estimat Glomerular Filtration 42 ML/MIN Rate Random Glucose 201 MG/DL Calcium Level 8.7 MG/DL Total Bilirubin 2.0 MG/DL Aspartate Amino Transf 38 U/L (AST/SGOT) Alanine Aminotransferase 47 U/L (ALT/SGPT) Alkaline Phosphatase 74 U/L Total Protein 7.5 GM/DL Albumin 3.8 GM/DL B-Hydroxybutyrate 0.24 MMOL/L [facility] Medical Decision Making Medical Screen Exam Complete: Yes Emergency Medical Condition: Yes Medical Record Reviewed: Yes Differential Diagnosis Gastroparesis, less likely viral gastroenteritis, less likely colitis Narrative Course 56-year-old male here with complaints of nausea for the past day and a half. This upon his history as this seems to be consistent with his prior bouts of gastroparesis. He is requesting Zofran and IV hydration, which I am providing. We'll also check some labs to make sure there are no gross abnormalities. If they're within normal limits, he will be discharged with antiemetics. 1751: patient verbalizes that he is feeling much better. He is still receiving ivf and labs are pending. 1809: Patient states he is feeling good and ready to go, however, he has electrolyte disturbance, with hyponatremia, dehydration, slight hyperkalemia. Discussed with patient that I recommend admission and he is in agreement. Call placed for call back from [facility]. Dr. Christianson spoke with Dr. Vazquez. Dr. Vazquez recommends discharge home and outpatient follow-up. Plan discussed with patient and he is in agreement. Of note he has an issue drinking alcohol, which likely explains his hyponatremia Diagnosis Primary Impression: Gastroparesis due to DM Additional Impression: Dehydration Referrals: Vamsi Vazquez MD PhD Patient Instructions: General Instructions Additional Instructions: Please return to emergency department if your symptoms return or worsen. Follow up with your primary care provider. Take medications as prescribed. Med/Other Pt SpecificInfo: No Change to Meds Disposition: 01 DISCHARGE HOME Condition: Stable Bryanna Hernandez Sep 02, 2016 16:24
[2016-09-02] MEDS ORDERED: SODIUM CHLOR 0.9% 1000 ML INJ 1,000 ML IV ONE (16:30)
[2016-09-02] MEDS ORDERED: ONDANSETRON HCL 4 MG/2 ML VIAL IV PUSH ONE (16:30)
[2016-09-02 17:18] LABS: AUTOMATED NEUTROPHIL # 13.1 TH/MM3 (1.8-7.7); BASOPHIL % 0.2 % (0.0-2.0); HEMATOCRIT 43.1 % (39.0-51.0); LYMPH % 4.1 % (9.0-44.0); LYMPHOCYTE # 0.7 TH/MM3 (1.0-4.8); MEAN CORPUSCULAR HEMOGLOBIN 32.6 PG (27.0-34.0); MEAN CORPUSCULAR HGB CONC 34.7 % (32.0-36.0); MONO % 13.9 % (0.0-8.0); NEUT % 81.8 % (16.0-70.0); PLATELET COUNT 192 TH/MM3 (150-450); RED BLOOD COUNT 4.58 MIL/MM3 (4.50-5.90); RED CELL DISTRIBUTION WIDTH 12.5 % (11.6-17.2)
[2016-09-02 17:26] LABS: HEMO FLAGS AUTO DIFF
[2016-09-02 17:47] LABS: ANION GAP 7 MEQ/L (5-15); AST (GOT) 38 U/L (15-37); BICARBONATE 29.8 MEQ/L (21.0-32.0); BLOOD UREA NITROGEN 28 MG/DL (7-18); CHLORIDE 88 MEQ/L (98-107); GLOMERULAR FILTRATION RATE 42 ML/MIN (>89); POTASSIUM 5.3 MEQ/L (3.5-5.1); SODIUM (NA) 125 MEQ/L (136-145)
[2016-09-02 17:53] LABS: ALKALINE PHOSPHATASE 74 U/L (45-117); ALT (GPT) 47 U/L (12-78); BETA-HYDROXYBUTYRATE 0.24 MMOL/L (0.00-0.39)
[2016-09-02 18:00] LABS: NEUTROPHIL # MANUAL DIFF 13.4 TH/MM3 (1.8-7.7); PLATELET ESTIMATE SMEAR NORMAL (NORMAL); PLATELET MORPHOLOGY NORMAL (NORMAL); POLYS (SEG NEUTROPHILS) 84 % (16-70); SCAN/DIFF FINAL DIFF MANUAL; WBC DIFF SAMPLE 100
[2016-09-02 18:56] VITALS: BP 143/102
--- NOTE | 2016-09-03 17:52 | EKG ---
Date Performed: 09/02/2016 Time Performed: 15:44:26 PTAGE: 56 years EKG: Sinus rhythm NORMAL ECG PREVIOUS TRACING : 07/20/2016 23.22 Compared to prior tracing no significant change DOCTOR: Gi Montano Interpretating Date/Time 09/03/2016 17:50:20
== END 2016-09-02 19:05 | disposition home or self-care (01) ==
LOC: NEPD 15:20
DX: E11.43 Type 2 diabetes mellitus with diabetic autonomic (poly)neuropathy (principal); K31.84 Gastroparesis; E86.0 Dehydration; I10 Essential (primary) hypertension; Z79.84 Long term (current) use of oral hypoglycemic drugs
CPT/HCPCS: 80053; 82010; 85007; 85027; 93005; 96361; 96374; 99284; J2405; J7030

== ENCOUNTER 2016-09-17 08:10 | Emergency (ER) | payer OTHER ==
[~2016-09-17] VITALS: Ht 177.8 cm; Wt 78.0 kg
[2016-09-17 08:12] VITALS: BP 202/118; PULSE 86; RESP 20; TEMP 97.4; O2SAT 100
[2016-09-17] MEDS ORDERED: ONDANSETRON HCL 4 MG/2 ML VIAL ONE (08:25)
[2016-09-17] MEDS ORDERED: ASPI-110 PO (08:29)
[2016-09-17 08:30] VITALS: BP 179/83; PULSE 99; RESP 18; O2SAT 99
--- NOTE | 2016-09-17 08:57 | PD ---
HPI Chief Complaint: GI Complaint Time Seen by Provider: 08:51 Travel History International Travel<30 days: No Contact w/Intl Traveler<30days: No Traveled to known affect area: No History of Present Illness HPI This is a 56-year-old gentleman with history gastroparesis, who presents here with complaints of vomiting. The patient states that he usually can control his vomiting with Zofran that he has at home. He reports that today he felt the nausea coming on and was unable to control his vomiting. He denies any other symptoms at this time. PFSH Past Medical History Asthma: No Autoimmune Disease: No Anxiety: No Depression: No Cancer: Yes (PROSTATE IN 2012) Cardiovascular Problems: Yes (HTN) High Cholesterol: Yes Chemotherapy: No COPD: No Cerebrovascular Accident: No Diabetes: Yes Patient Takes Glucophage: No Diminished Hearing: No Diverticulitis: No Endocrine: Yes Gastrointestinal Disorders: Yes (GASTROPARESIS) GERD: No Genitourinary: No Headaches: No Hiatal Hernia: No Heparin Induced Thrombocytopen: No Hypertension: Yes Immune Disorder: No Implanted Vascular Access Dvce: No Kidney Stones: No Musculoskeletal: No Neurologic: No Psychiatric: No Reproductive: No Respiratory: No Immunizations Current: Yes Migraines: No Pancreatitis: No Radiation Therapy: Yes (IN 2011 prostate ca) Renal Failure: No Seizures: No Sickle Cell Disease: No Thyroid Disease: No Triglycerides - High: Yes Ulcer: No PNEUMOCCOCAL Vaccine (Year): 2 ?: Not Past Surgical History Abdominal Surgery: Yes (INGUINAL HERNIA) AICD: No Arteriovenous Shunt: No Cardiac Surgery: No Ear Surgery: No Endocrine Surgery: No Eye Surgery: No Genitourinary Surgery: No Gynecologic Surgery: No Insulin Pump: No Joint Replacement: No Neurologic Surgery: No Oral Surgery: No Pacemaker: No Thoracic Surgery: No Other Surgery: Yes (INGUINAL HERNIA REPAIR) Social History Alcohol Use: Yes (Socially ) Tobacco Use: No Substance Use: No Allergies-Medications (Allergen,Severity, Reaction): Coded Allergies: HMG-CoA Reductase Inhibitors (Verified Allergy, Severe, Twitching, 09/17/16 ) MYALGIA Reported Meds & Prescriptions Reported Meds & Active Scripts Active Glimepiride 2 Mg Tab 2 Mg PO BIDAC Zofran (Ondansetron HCl) 8 Mg Tab 8 Mg PO TID Reported Aspirin 81 (Aspirin) 81 Mg Tabdr 81 Mg PO DAILY Effexor (Venlafaxine HCl) 75 Mg Tab 75 Mg PO Q12H Metoprolol Tartrate 100 Mg Tab 100 Mg PO BID Lisinopril 20 Mg Tab 20 Mg PO BID Review of Systems Gastrointestinal: Positive: Nausea, Vomiting, No: Abdominal Pain Physical Exam Narrative GENERAL: Well-nourished, well-developed patient in no acute respiratory distress. SKIN: Focused skin assessment warm/dry. GASTROINTESTINAL: Abdomen soft, non-tender, nondistended. MUSCULOSKELETAL: No cyanosis, or edema. NEUROLOGICAL: Awake and alert. Cranial nerves II through XII intact. Motor grossly within normal limits. Five out of 5 muscle strength in all muscle groups. Normal speech. Data Data Last Documented VS Vital Signs Date Time Temp Pulse Resp B/P Pulse Ox O2 Delivery O2 Flow Rate FiO2 09/17/16 08:30 99 18 179/83 99 Room Air 09/17/16 08:12 97.4 Orders Ondansetron Inj (Zofran Inj) (09/17/16 08:25) Ondansetron Inj (Zofran Inj) (09/17/16 09:00) Metoclopramide Inj (Reglan Inj) (09/17/16 09:00) Sodium Chlor 0.9% 1000 Ml Inj (Ns 1000 M (09/17/16 09:00) MDM Medical Decision Making Medical Screen Exam Complete: Yes Emergency Medical Condition: Yes Differential Diagnosis Gastroparesis exacerbation versus influenza versus gastroenteritis Narrative Course 56 year-old gentleman history of gastroparesis secondary diabetes mellitus, presents here with nausea vomiting. The patient states he usually can control by taking Zofran before hand. He denies any chest pain, chest pressure. He denies any other symptoms. He's been given Zofran and 5 g a Reglan. He states he feels much better. He'll be discharged and told to follow up with his primary care doctor. Diagnosis Primary Impression: Nausea & vomiting Additional Impression: Gastroparesis due to DM Disposition: 01 DISCHARGE HOME Condition: Stable Otto Wolfe MD Sep 17, 2016 08:57
[2016-09-17] MEDS ORDERED: ONDANSETRON HCL 4 MG/2 ML VIAL IV PUSH ONE (09:00)
[2016-09-17] MEDS ORDERED: METOCLOPRAMIDE HCL 10 MG/2 ML VIAL IV PUSH ONE (09:00)
[2016-09-17] MEDS ORDERED: SODIUM CHLOR 0.9% 1000 ML INJ 1,000 ML IV ONE (09:00)
[2016-09-17 10:11] VITALS: BP 177/78; PULSE 100; RESP 18; O2SAT 100
== END 2016-09-17 10:25 | disposition home or self-care (01) ==
LOC: NEPC 08:10
DX: E11.43 Type 2 diabetes mellitus with diabetic autonomic (poly)neuropathy (principal); K31.84 Gastroparesis; Z79.84 Long term (current) use of oral hypoglycemic drugs
CPT/HCPCS: 96361; 96374; 96375; 99284; J2765; J7030; J2405

== ENCOUNTER 2016-09-29 10:12 | Emergency (ER) | payer OTHER ==
[~2016-09-29] VITALS: Ht 177.8 cm; Wt 77.0 kg
[~2016-09-29 10:12] MED LIST changes: +ASPI-110 PO; -ASPI1TAB69 PO; -TRAM50TA PO
[2016-09-29 10:18] VITALS: RESP 16; O2SAT 98
[2016-09-29 10:28] VITALS: BP 188/108; PULSE 85; RESP 16; TEMP 97.7; O2SAT 98
[2016-09-29] MEDS ORDERED: SODIUM CHLOR 0.9% 1000 ML INJ 1,000 ML IV ONE (10:30)
[2016-09-29] MEDS ORDERED: ONDANSETRON HCL 4 MG/2 ML VIAL IV PUSH ONE (10:30)
[2016-09-29] MEDS ORDERED: METOPROLOL TARTRATE 100 MG TAB PO ONE (10:30)
[2016-09-29] MEDS ORDERED: METOPROLOL TARTRATE 50 MG TAB PO ONE (10:30)
[2016-09-29 10:36] LABS: AUTOMATED NEUTROPHIL # 10.9 TH/MM3 (1.8-7.7); BASOPHIL # 0.1 TH/MM3 (0-0.2); BASOPHIL % 0.7 % (0.0-2.0); EOSINOPHIL # 0.1 TH/MM3 (0-0.4); EOSINOPHIL % 0.4 % (0.0-4.0); HEMATOCRIT 46.8 % (39.0-51.0); HEMO FLAGS DIFF FINAL; LYMPH % 9.3 % (9.0-44.0); LYMPHOCYTE # 1.3 TH/MM3 (1.0-4.8); MEAN CELL VOLUME 93.3 FL (80.0-100.0); MEAN CORPUSCULAR HEMOGLOBIN 31.6 PG (27.0-34.0); MEAN CORPUSCULAR HGB CONC 33.9 % (32.0-36.0); MONO % 9.5 % (0.0-8.0); NEUT % 80.1 % (16.0-70.0); PLATELET COUNT 293 TH/MM3 (150-450); RED BLOOD COUNT 5.02 MIL/MM3 (4.50-5.90); RED CELL DISTRIBUTION WIDTH 11.2 % (11.6-17.2); WHITE BLOOD COUNT 13.7 TH/MM3 (4.0-11.0)
--- NOTE | 2016-09-29 10:38 | PD ---
HPI Chief Complaint: vomiting Time Seen by Provider: 10:15 Travel History International Travel<30 days: No Contact w/Intl Traveler<30days: No Traveled to known affect area: No History of Present Illness HPI 56-year-old male presents with nonbloody emesis and feelings of his typical gastroparesis. He states his home medications are not controlling it. He states he cannot keep his blood pressure medication down. He denies other concurrent complaints. He denies any change in his medical history since he was recently here. Symptoms have been going on for the past day. Quality nonbloody. Severity multiple episodes. PFSH Past Medical History Hx Anticoagulant Therapy: No Asthma: No Autoimmune Disease: No Anxiety: No Depression: No Cancer: Yes (PROSTATE IN 2011) Cardiovascular Problems: Yes (HTN, CHOL) High Cholesterol: Yes Chemotherapy: Yes COPD: No Cerebrovascular Accident: No Diabetes: Yes Patient Takes Glucophage: No Diminished Hearing: No Diverticulitis: No Endocrine: Yes Gastrointestinal Disorders: Yes (GASTROPARESIS) GERD: No Genitourinary: No Headaches: No Hiatal Hernia: No Heparin Induced Thrombocytopen: No Hypertension: Yes Immune Disorder: No Implanted Vascular Access Dvce: No Kidney Stones: No Musculoskeletal: No Neurologic: No Psychiatric: No Reproductive: No Respiratory: No Immunizations Current: Yes Migraines: No Pancreatitis: No Radiation Therapy: Yes (IN 2011 prostate ca) Renal Failure: No Seizures: No Sickle Cell Disease: No Thyroid Disease: No Triglycerides - High: Yes Ulcer: No PNEUMOCCOCAL Vaccine (Year): 2 Past Surgical History Abdominal Surgery: Yes (INGUINAL HERNIA) AICD: No Arteriovenous Shunt: No Cardiac Surgery: No Ear Surgery: No Endocrine Surgery: No Eye Surgery: No Genitourinary Surgery: No Gynecologic Surgery: No Insulin Pump: No Joint Replacement: No Neurologic Surgery: No Oral Surgery: No Pacemaker: No Thoracic Surgery: No Other Surgery: Yes (INGUINAL HERNIA REPAIR) Social History Alcohol Use: Yes (Socially ) Tobacco Use: No Substance Use: No Allergies-Medications (Allergen,Severity, Reaction): Coded Allergies: HMG-CoA Reductase Inhibitors (Verified Allergy, Severe, Twitching, 09/29/16) MYALGIA Reported Meds & Prescriptions Reported Meds & Active Scripts Active Phenergan (Promethazine HCl) 25 Mg Tablet 25 Mg PO Q6H PRN Glimepiride 2 Mg Tab 2 Mg PO BIDAC Zofran (Ondansetron HCl) 8 Mg Tab 8 Mg PO TID Reported Aspirin 81 (Aspirin) 81 Mg Tabdr 81 Mg PO DAILY Effexor (Venlafaxine HCl) 75 Mg Tab 75 Mg PO Q12H Metoprolol Tartrate 100 Mg Tab 100 Mg PO BID Lisinopril 20 Mg Tab 20 Mg PO BID Review of Systems Except as stated in HPI: all other systems reviewed are Neg Physical Exam Narrative GENERAL: Well-nourished, well-developed patient. SKIN: Warm and dry. HEAD: Normocephalic and atraumatic. EYES: No injection or drainage. ENT: No nasal drainage noted. NECK: Supple, trachea midline. CARDIOVASCULAR: Regular rate and rhythm RESPIRATORY: Breath sounds equal bilaterally. No accessory muscle use. GASTROINTESTINAL: Abdomen soft, non-tender, nondistended. EXTREMITIES: No edema. NEUROLOGICAL: Awake and alert. Motor and sensory grossly within normal limits. Normal speech. Data Data Last Documented VS Vital Signs Date Time Temp Pulse Resp B/P Pulse Ox O2 Delivery O2 Flow Rate FiO2 09/29/16 10:48 76 16 162/83 97 Room Air 09/29/16 10:28 97.7 Orders Complete Blood Count With Diff (09/29/16 10:16) Basic Metabolic Panel (Bmp) (09/29/16 10:16) Iv Access Insert/Monitor (09/29/16 10:16) Ecg Monitoring (09/29/16 10:16) Oximetry (09/29/16 10:16) Sodium Chlor 0.9% 1000 Ml Inj (Ns 1000 M (09/29/16 10:30) Ondansetron Inj (Zofran Inj) (09/29/16 10:30) Metoprolol Tartrate (Lopressor) (09/29/16 10:30) Metoprolol Tartrate (Lopressor) (09/29/16 10:30) Labs Laboratory Tests Test 09/29/16 10:20 White Blood Count 13.7 TH/MM3 Red Blood Count 5.02 MIL/MM3 Hemoglobin 15.9 GM/DL Hematocrit 46.8 % Mean Corpuscular Volume 93.3 FL Mean Corpuscular Hemoglobin 31.6 PG Mean Corpuscular Hemoglobin 33.9 % Concent Red Cell Distribution Width 11.2 % Platelet Count 293 TH/MM3 Mean Platelet Volume 7.4 FL Neutrophils (%) (Auto) 80.1 % Lymphocytes (%) (Auto) 9.3 % Monocytes (%) (Auto) 9.5 % Eosinophils (%) (Auto) 0.4 % Basophils (%) (Auto) 0.7 % Neutrophils # (Auto) 10.9 TH/MM3 Lymphocytes # (Auto) 1.3 TH/MM3 Monocytes # (Auto) 1.3 TH/MM3 Eosinophils # (Auto) 0.1 TH/MM3 Basophils # (Auto) 0.1 TH/MM3 CBC Comment DIFF FINAL Differential Comment Sodium Level 138 MEQ/L Potassium Level 4.8 MEQ/L Chloride Level 101 MEQ/L Carbon Dioxide Level 23.3 MEQ/L Anion Gap 14 MEQ/L Blood Urea Nitrogen 15 MG/DL Creatinine 1.20 MG/DL Estimat Glomerular Filtration 62 ML/MIN Rate Random Glucose 150 MG/DL Calcium Level 8.9 MG/DL MDM Medical Decision Making Medical Screen Exam Complete: Yes Emergency Medical Condition: Yes Medical Record Reviewed: Yes (pmh confirmed) Interpretation(s) CBC & BMP Diagram 09/29/16 10:20 Differential Diagnosis Gastroparesis, electrolyte abnormality, renal failure Narrative Course Will check blood work and dose with IV fluids and Zofran and reevaluate labs improved from prior, no emesis here, Patient denies any new complaints and states that they are feeling better. Patient happy with care, all questions answered. Patient knows that follow up is incumbent on them and to return to the emergency room immediately if new or worsening symptoms develop. Patient given strict return precautions, vitals reviewed and are normal, agrees to further workup as an outpatient. states has zofran at home Diagnosis Primary Impression: Nausea & vomiting Qualified Code: R11.2 - Non-intractable vomiting with nausea, unspecified vomiting type Patient Instructions: General Instructions Additional Instructions: return as needed, follow with your gi specialist, zofran and phenergan as needed Med/Other Pt SpecificInfo: Prescription(s) given Scripts Promethazine (Phenergan)25 Mg [id number] Mg PO Q6H PRN (NAUSEA OR VOMITING) #15 TAB Ref 0 Prov:Eli Portillo MD 09/29/16 Disposition: 01 DISCHARGE HOME Condition: Stable Eli Portillo MD Sep 29, 2016 10:38
[2016-09-29 10:43] LABS: POTASSIUM 4.8 MEQ/L (3.5-5.1)
[2016-09-29 10:47] LABS: BICARBONATE 23.3 MEQ/L (21.0-32.0)
[2016-09-29 10:48] VITALS: BP 162/83; PULSE 76; RESP 16; O2SAT 97
[2016-09-29] MEDS ORDERED: PROM25TA10 PO (11:09)
[2016-09-29 11:19] VITALS: BP 153/90
== END 2016-09-29 11:30 | disposition home or self-care (01) ==
LOC: PHED 10:12
DX: R11.2 Nausea with vomiting, unspecified (principal); I10 Essential (primary) hypertension; E11.9 Type 2 diabetes mellitus without complications; E78.00 Pure hypercholesterolemia, unspecified; E78.1 Pure hyperglyceridemia; Z79.84 Long term (current) use of oral hypoglycemic drugs; Z87.19 Personal history of other diseases of the digestive system; Z86.79 Personal history of other diseases of the circulatory system; Z85.46 Personal history of malignant neoplasm of prostate
CPT/HCPCS: 80048; 85025; 96361; 96374; 99284; J2405; J7030

== ENCOUNTER 2016-10-13 14:05 | Emergency (ER) | payer OTHER ==
[~2016-10-13] VITALS: Ht 177.8 cm; Wt 79.0 kg
[~2016-10-13 14:05] MED LIST changes: +PROM25TA10 PO
[2016-10-13 14:10] VITALS: PULSE 76; RESP 16; TEMP 97.7; O2SAT 97
--- NOTE | 2016-10-13 14:27 | PD ---
HPI . Right flank pain Chief Complaint: Flank/Kidney Pain Time Seen by Provider: 14:22 Travel History International Travel<30 days: No Contact w/Intl Traveler<30days: No Traveled to known affect area: No History of Present Illness HPI Patient presents with a chief complaint of right flank pain. He reports the onset of some mild right flank pain a couple days ago. He states that it is acutely worse today. It is now radiating into his right testicle. It is associated with some mild diaphoresis. Any urinary tract symptoms such as dysuria, frequency, urgency or hematuria. He denies any previous similar history. Pain is exacerbated by certain positions. Pain is currently constant and sharp and rated 7/10. PFSH Past Medical History Hx Anticoagulant Therapy: No Asthma: No Autoimmune Disease: No Anxiety: No Depression: No Cancer: Yes (PROSTATE IN 2011) Cardiovascular Problems: Yes (HTN, CHOL) High Cholesterol: Yes Chemotherapy: Yes COPD: No Cerebrovascular Accident: No Diabetes: Yes Patient Takes Glucophage: No Diminished Hearing: No Diverticulitis: No Endocrine: Yes Gastrointestinal Disorders: Yes (GASTROPARESIS) GERD: No Genitourinary: No Headaches: No Hiatal Hernia: No Heparin Induced Thrombocytopen: No Hypertension: Yes Immune Disorder: No Implanted Vascular Access Dvce: No Kidney Stones: No Musculoskeletal: No Neurologic: No Psychiatric: No Reproductive: No Respiratory: No Immunizations Current: Yes Migraines: No Pancreatitis: No Radiation Therapy: Yes (IN 2011 prostate ca) Renal Failure: No Seizures: No Sickle Cell Disease: No Thyroid Disease: No Triglycerides - High: Yes Ulcer: No PNEUMOCCOCAL Vaccine (Year): 2 Past Surgical History Abdominal Surgery: Yes (INGUINAL HERNIA) AICD: No Arteriovenous Shunt: No Cardiac Surgery: No Ear Surgery: No Endocrine Surgery: No Eye Surgery: No Genitourinary Surgery: No Gynecologic Surgery: No Insulin Pump: No Joint Replacement: No Neurologic Surgery: No Oral Surgery: No Pacemaker: No Thoracic Surgery: No Other Surgery: Yes (INGUINAL HERNIA REPAIR) Social History Alcohol Use: Yes (Socially ) Tobacco Use: No Substance Use: No Allergies-Medications (Allergen,Severity, Reaction): Coded Allergies: HMG-CoA Reductase Inhibitors (Verified Allergy, Severe, Twitching, 10/13/16 ) MYALGIA Reported Meds & Prescriptions Reported Meds & Active Scripts Active Phenergan (Promethazine HCl) 25 Mg Tablet 25 Mg PO Q6H PRN Glimepiride 2 Mg Tab 2 Mg PO BIDAC Zofran (Ondansetron HCl) 8 Mg Tab 8 Mg PO TID Reported Aspirin 81 (Aspirin) 81 Mg Tabdr 81 Mg PO DAILY Effexor (Venlafaxine HCl) 75 Mg Tab 75 Mg PO Q12H Metoprolol Tartrate 100 Mg Tab 100 Mg PO BID Lisinopril 20 Mg Tab 20 Mg PO BID Review of Systems Except as stated in HPI: all other systems reviewed are Neg Genitourinary: Positive: Flank Pain, No: Urgency, Frequency, Dysuria, Hematuria Physical Exam Narrative GENERAL: Healthy-appearing man in no acute distress. SKIN: Warm and dry. HEAD: Atraumatic. Normocephalic. EYES: Pupils equal and round. ENT: No nasal bleeding or discharge. Mucous membranes pink and moist. NECK: Trachea midline. CARDIOVASCULAR: Regular rate and rhythm. RESPIRATORY: No accessory muscle use. GASTROINTESTINAL: Abdomen soft, non-tender, nondistended. I am unable to elicit any CVA tenderness. : Normal circumcised male. There is no testicular tenderness, swelling, abnormal presentation. There is no hernia. MUSCULOSKELETAL: No obvious deformities. No edema. NEUROLOGICAL: Awake and alert. No obvious cranial nerve deficits. Motor grossly within normal limits. Normal speech. PSYCHIATRIC: Appropriate mood and affect; insight and judgment normal. Data Data Last Documented VS Vital Signs Date Time Temp Pulse Resp B/P Pulse Ox O2 Delivery O2 Flow Rate FiO2 10/13/16 14:57 68 16 198/95 98 Room Air 10/13/16 14:10 97.7 Orders Urinalysis - C+S If Indicated (10/13/16 14:22) Ct Abd/Pel W/O Iv Contrast (10/13/16 14:22) Iv Access Insert/Monitor (10/13/16 14:22) Ketorolac Inj (Toradol Inj) (10/13/16 14:30) Ondansetron Inj (Zofran Inj) (10/13/16 14:30) Sodium Chloride 0.9% Flush (Ns Flush) (10/13/16 14:30) Hydromorphone Pf Inj (Dilaudid Pf Inj) (10/13/16 14:30) Sodium Chlor 0.9% 1000 Ml Inj (Ns 1000 M (10/13/16 14:30) Labs Laboratory Tests Test 10/13/16 14:25 Urine Collection Type CLEAN CATCH Urine Color YELLOW Urine Turbidity CLEAR Urine pH 5.0 Urine Specific [place] 1.016 Urine Protein 100 mg/dL Urine Glucose (UA) NEG mg/dL Urine Ketones NEG mg/dL Urine Occult Blood TRACE Urine Nitrite NEG Urine Bilirubin NEG Urine Leukocyte Esterase NEG Urine RBC 0-3 /hpf Urine Squamous Epithelial 0-5 /hpf Cells Urine Hyaline Casts 3-5 /lpf Microscopic Urinalysis Comment CULT NOT INDICATED Urine Collection Time 14:[address] [facility] Medical Decision Making Medical Screen Exam Complete: Yes Emergency Medical Condition: Yes Differential Diagnosis Differential diagnosis of flank pain includes but is not limited to kidney stone , pyelonephritis, musculoskeletal pain, PE Narrative Course This patient presents with right flank pain which is now radiating to the right testicle. The most likely etiology is kidney colic. CT is pending. He will be treated with IV fluids, IV Dilaudid, IV Toradol and IV Zofran. Flomax will be added if he has a kidney stone. CT>>Normal examination in regards to acute process. Stable left renal cyst. No adenopathy or mass is identified of any significance. UA is negative. When I went back to talk to the patient to give him the results of the test, he was noted to be very tremulous. He is a known diabetic. We will check his sugar. His problem list also mentions alcohol abuse. Diagnosis Primary Impression: Flank pain Patient Instructions: Flank Pain (ED), General Instructions Disposition: 01 DISCHARGE HOME Condition: Stable Azeb Chicas MD Oct 13, 2016 14:27
[2016-10-13] MEDS ORDERED: HYDROmorphone HCL PF 1 MG/ML VIAL IVS ONE (14:30)
[2016-10-13] MEDS ORDERED: KETOROLAC TROMETHAMINE 30 MG/ML (IVP) VIAL IVP ONE (14:30)
[2016-10-13] MEDS ORDERED: SODIUM CHLORIDE 0.9% FLUSH 10 ML FLUSH IVF PRN (14:30)
[2016-10-13] MEDS ORDERED: ONDANSETRON HCL 4 MG/2 ML VIAL IVP ONE (14:30)
[2016-10-13] MEDS: SODIUM CHLOR 0.9% 1000 ML INJ 1,000 ML IV SCH ×2 (14:31→15:30)
[2016-10-13 14:34] VITALS: BP 194/110; PULSE 88; RESP 16; O2SAT 100
[2016-10-13 14:37] LABS: BLOOD, URINE TRACE (NEG); GLUCOSE,URINE NEG (NEG); KETONE, URINE NEG (NEG); NITRITE,URINE NEG (NEG)
[2016-10-13 14:39] LABS: METHOD OF COLLECTION CLEAN CATCH
[2016-10-13 14:40] LABS: URINE COLOR YELLOW (YELLW/STRAW)
[2016-10-13 14:41] LABS: COMMENT (UR) CULT NOT INDICATED; CULTURE IF INDICATED CULT NOT INDICATED; RBC, URINE 0-3 /hpf (0-3); SQUAMOUS EPITHELIAL CELL URINE 0-5 /hpf (0-5)
[2016-10-13 14:57] VITALS: BP 198/95; PULSE 68; RESP 16; O2SAT 98
--- NOTE | 2016-10-13 14:57 | RADRPT ---
EXAM DATE/TIME: 10/13/2016 14:30 [facility] COMPARISON: CT ABDOMEN & PELVIS W CONTRAST, April 21, 2012, 2:03. INDICATIONS : Right flank pain x 2 days. ORAL CONTRAST: No oral contrast ingested. RADIATION DOSE: 12.42 CTDIvol (mGy) MEDICAL HISTORY : Diabetes mellitus type 2. Hypertension. Carcinoma, prostate. SURGICAL HISTORY : Inguinal hernia repair. ENCOUNTER: Initial ACUITY: 2 days PAIN SCALE: 7/10 LOCATION: Right flank TECHNIQUE: Volumetric scanning of the abdomen and pelvis was performed. Using automated exposure control and ad justment of the mA and/or kV according to patient size, radiation dose was kept as low as reasonably achievable to obtain optimal diagnostic quality images. DICOM format image data is available electro nically for review and comparison. FINDINGS: LOWER LUNGS: The visualized lower lungs are clear. LIVER: Homogeneous density without lesion. There is no dilation of the biliary tree. No calcified gallston es. SPLEEN: Normal size without lesion. PANCREAS: Within normal limits. KIDNEYS: Normal in size and shape. There is no mass, stone, or hydronephrosis other than stable exophytic cys t off the left kidney. ADRENAL GLANDS: Within normal limits. VASCULAR: There is no aortic aneurysm. BOWEL/MESENTERY: The stomach, small bowel, and colon demonstrate no acute abnormality. There is no free intraperitone al air or fluid. ABDOMINAL WALL: Within normal limits. RETROPERITONEUM: There is no lymphadenopathy. BLADDER: No wall thickening or mass. Prostate seed placement REPRODUCTIVE: Within normal limits. INGUINAL: There is no lymphadenopathy or hernia. MUSCULOSKELETAL: Within normal limits for patient age. CONCLUSION: Normal examination in regards to acute process. Stable left renal cyst. No adenopathy or mass is iden tified of any significance. Curry Mazariegos MD on October 13, 2016 at 14:53 Board Certified Radiologist. This report was verified electronically.
[2016-10-13] MEDS ORDERED: METOPROLOL TARTRATE 100 MG TAB PO ONE (15:15)
[2016-10-13] MEDS ORDERED: LISINOPRIL 20 MG TAB PO ONE (15:15)
[2016-10-13 15:38] VITALS: BP 196/99
[2016-10-13 15:39] VITALS: BP 196/99
== END 2016-10-13 15:45 | disposition home or self-care (01) ==
LOC: PHED 14:05
DX: R10.9 Unspecified abdominal pain (principal)
CPT/HCPCS: 74176; 81001; 96361; 96374; 96375; 99285; J1170; J1885; J2405; J7030

== ENCOUNTER 2016-10-21 23:46 | Emergency (ER) | payer OTHER ==
[~2016-10-21] VITALS: Ht 177.8 cm; Wt 77.0 kg
[2016-10-21 23:52] VITALS: BP 209/109; PULSE 87; RESP 18; TEMP 97.5; O2SAT 100
[2016-10-21 23:55] VITALS: BP 200/106; PULSE 88; RESP 16; O2SAT 100; O2SAT 16
[2016-10-22 00:15] VITALS: BP 198/100
[2016-10-22] MEDS ORDERED: ONDANSETRON HCL 4 MG/2 ML VIAL IVP ONE (00:15)
[2016-10-22] MEDS ORDERED: SODIUM CHLORIDE 0.9% FLUSH 10 ML FLUSH IV FLUSH PRN (00:15)
[2016-10-22] MEDS ORDERED: cloNIDine HCL 0.1 MG TAB PO ONE ×2 (00:15→02:00)
[2016-10-22] MEDS ORDERED: SODIUM CHLOR 0.9% 1000 ML INJ 1,000 ML IV SCH (00:15)
[2016-10-22 00:24] LABS: AUTOMATED NEUTROPHIL # 12.2 TH/MM3 (1.8-7.7); BASOPHIL # 0.4 TH/MM3 (0-0.2); BASOPHIL % 2.4 % (0.0-2.0); EOSINOPHIL % 0.1 % (0.0-4.0); HEMATOCRIT 51.3 % (39.0-51.0); HEMO FLAGS DIFF FINAL; LYMPHOCYTE # 1.2 TH/MM3 (1.0-4.8); MEAN CELL VOLUME 92.7 FL (80.0-100.0); MEAN CORPUSCULAR HEMOGLOBIN 31.1 PG (27.0-34.0); MEAN CORPUSCULAR HGB CONC 33.5 % (32.0-36.0); MONO % 6.5 % (0.0-8.0); PLATELET COUNT 258 TH/MM3 (150-450); RED BLOOD COUNT 5.53 MIL/MM3 (4.50-5.90); RED CELL DISTRIBUTION WIDTH 12.2 % (11.6-17.2); WHITE BLOOD COUNT 14.9 TH/MM3 (4.0-11.0)
[2016-10-22 00:41] LABS: CHLORIDE 96 MEQ/L (98-107); SODIUM (NA) 134 MEQ/L (136-145)
[2016-10-22 00:45] LABS: ANION GAP 13 MEQ/L (5-15); BICARBONATE 24.8 MEQ/L (21.0-32.0); BLOOD UREA NITROGEN 26 MG/DL (7-18); MAGNESIUM 1.6 MG/DL (1.5-2.5)
[2016-10-22 00:48] LABS: ALT (GPT) 48 U/L (12-78); AST (GOT) 40 U/L (15-37); GLOMERULAR FILTRATION RATE 48 ML/MIN (>89)
[2016-10-22 00:49] LABS: TOTAL BILIRUBIN ADULT 2.4 MG/DL (0.2-1.0)
[2016-10-22 00:50] LABS: ALKALINE PHOSPHATASE 83 U/L (45-117)
[2016-10-22 01:00] VITALS: BP 193/96; PULSE 87
--- NOTE | 2016-10-22 01:04 | PD ---
HPI Chief Complaint: GI Complaint Time Seen by Provider: 00:01 Travel History International Travel<30 days: No Contact w/Intl Traveler<30days: No Traveled to known affect area: No History of Present Illness HPI 56-year-old male with type 2 diabetes with history of recurrent gastroparesis with nausea vomiting presents to the emergency department with nausea and vomiting and dry heaves since 10 AM on . Patient denies any coffee- ground emesis or hematemesis. Also no change in bowels and no melanoma hematochezia. Patient states he is unable to tolerate oral hydration and was unable to take his blood pressure medication today. Patient does not report other concerns or complaints. PFSH Past Medical History Narrative Medical Prostate cancer with chemotherapy hypertension dyslipidemia diabetes gastroparesis inguinal herniorrhaphy, alcohol use; nursing notes reviewed Hx Anticoagulant Therapy: No Asthma: No Autoimmune Disease: No Anxiety: No Depression: No Cancer: Yes (PROSTATE IN 2011) Cardiovascular Problems: Yes (HTN, CHOL) High Cholesterol: Yes Chemotherapy: Yes COPD: No Cerebrovascular Accident: No Diabetes: Yes Patient Takes Glucophage: Yes Diminished Hearing: No Diverticulitis: No Endocrine: Yes Gastrointestinal Disorders: Yes (GASTROPARESIS) GERD: No Genitourinary: No Headaches: No Hiatal Hernia: No Heparin Induced Thrombocytopen: No Hypertension: Yes Immune Disorder: No Implanted Vascular Access Dvce: No Kidney Stones: No Musculoskeletal: No Neurologic: No Psychiatric: No Reproductive: No Respiratory: No Immunizations Current: Yes Migraines: No Pancreatitis: No Radiation Therapy: Yes (IN 2011 prostate ca) Renal Failure: No Seizures: No Sickle Cell Disease: No Thyroid Disease: No Triglycerides - High: Yes Ulcer: No PNEUMOCCOCAL Vaccine (Year): 2 ?: Not Past Surgical History Abdominal Surgery: Yes (INGUINAL HERNIA) AICD: No Arteriovenous Shunt: No Cardiac Surgery: No Ear Surgery: No Endocrine Surgery: No Eye Surgery: No Genitourinary Surgery: No Gynecologic Surgery: No Insulin Pump: No Joint Replacement: No Neurologic Surgery: No Oral Surgery: No Pacemaker: No Thoracic Surgery: No Other Surgery: Yes (INGUINAL HERNIA REPAIR) Social History Alcohol Use: Yes (Socially ) Tobacco Use: No Substance Use: No Allergies-Medications (Allergen,Severity, Reaction): Coded Allergies: HMG-CoA Reductase Inhibitors (Verified Allergy, Severe, Twitching, 7/19/17 ) MYALGIA Reported Meds & Prescriptions Reported Meds & Active Scripts Active Clonidine (Clonidine HCl) 0.1 Mg Tab 0.1 Mg PO Q12HR PRN Zofran Odt (Ondansetron Odt) 4 Mg Tab 4 Mg SL Q6HR PRN Phenergan (Promethazine HCl) 25 Mg Tablet 25 Mg PO Q6H PRN Phenergan (Promethazine HCl) 25 Mg Tablet 25 Mg PO Q6H PRN Glimepiride 2 Mg Tab 2 Mg PO BIDAC Zofran (Ondansetron HCl) 8 Mg Tab 8 Mg PO TID Reported Aspirin 81 (Aspirin) 81 Mg Tabdr 81 Mg PO DAILY Effexor (Venlafaxine HCl) 75 Mg Tab 75 Mg PO Q12H Metoprolol Tartrate 100 Mg Tab 100 Mg PO BID Lisinopril 20 Mg Tab 20 Mg PO BID Review of Systems Except as stated in HPI: all other systems reviewed are Neg General / Constitutional: No: Fever, Chills HENT: No: Congestion Cardiovascular: No: Chest Pain or Discomfort Gastrointestinal: Positive: Nausea, Vomiting, Abdominal Pain Genitourinary: No: Flank Pain Musculoskeletal: No: Myalgias, Arthralgias Skin: No Rash Neurologic: No: Weakness Psychiatric: No: Anxiety Hematologic/Lymphatic: No: Lymph Node Enlargement Physical Exam Narrative GENERAL: SKIN: Warm and dry. HEAD: Normocephalic. EYES: No scleral icterus. No injection or drainage. NECK: Supple, trachea midline. No JVD or lymphadenopathy. CARDIOVASCULAR: Regular rate and rhythm without murmurs, gallops, or rubs. RESPIRATORY: Breath sounds equal bilaterally. No accessory muscle use. GASTROINTESTINAL: Abdomen soft, non-tender, nondistended. MUSCULOSKELETAL: No cyanosis, or edema. BACK: Nontender without obvious deformity. No CVA tenderness. Data Data Last Documented VS Vital Signs Date Time Temp Pulse Resp B/P Pulse Ox O2 Delivery O2 Flow Rate FiO2 10/22/16 01:20 78 16 192/84 98 Room Air 10/21/16 23:52 97.5 Orders Complete Blood Count With Diff (10/22/16 00:01) Comprehensive Metabolic Panel (10/22/16 00:01) Lipase (10/22/16 00:01) Iv Access Insert/Monitor (10/22/16 00:01) Ecg Monitoring (10/22/16 00:01) Oximetry (10/22/16 00:01) Ondansetron Inj (Zofran Inj) (10/22/16 00:15) Sodium Chloride 0.9% Flush (Ns Flush) (10/22/16 00:15) Clonidine (Catapres) (10/22/16 00:15) Magnesium (Mg) (10/22/16 00:01) Sodium Chlor 0.9% 1000 Ml Inj (Ns 1000 M (10/22/16 00:15) Ondansetron Inj (Zofran Inj) (10/22/16 01:15) Clonidine (Catapres) (10/22/16 02:00) Labs Laboratory Tests Test 10/22/16 00:05 White Blood Count 14.9 TH/MM3 Red Blood Count 5.53 MIL/MM3 Hemoglobin 17.2 GM/DL Hematocrit 51.3 % Mean Corpuscular Volume 92.7 FL Mean Corpuscular Hemoglobin 31.1 PG Mean Corpuscular Hemoglobin 33.5 % Concent Red Cell Distribution Width 12.2 % Platelet Count 258 TH/MM3 Mean Platelet Volume 7.9 FL Neutrophils (%) (Auto) 83.0 % Lymphocytes (%) (Auto) 8.0 % Monocytes (%) (Auto) 6.5 % Eosinophils (%) (Auto) 0.1 % Basophils (%) (Auto) 2.4 % Neutrophils # (Auto) 12.2 TH/MM3 Lymphocytes # (Auto) 1.2 TH/MM3 Monocytes # (Auto) 1.0 TH/MM3 Eosinophils # (Auto) 0.0 TH/MM3 Basophils # (Auto) 0.4 TH/MM3 CBC Comment DIFF FINAL Differential Comment Sodium Level 134 MEQ/L Potassium Level 5.0 MEQ/L Chloride Level 96 MEQ/L Carbon Dioxide Level 24.8 MEQ/L Anion Gap 13 MEQ/L Blood Urea Nitrogen 26 MG/DL Creatinine 1.50 MG/DL Estimat Glomerular Filtration 48 ML/MIN Rate Random Glucose 179 MG/DL Calcium Level 9.2 MG/DL Magnesium Level 1.6 MG/DL Total Bilirubin 2.4 MG/DL Aspartate Amino Transf 40 U/L (AST/SGOT) Alanine Aminotransferase 48 U/L (ALT/SGPT) Alkaline Phosphatase 83 U/L Total Protein 8.2 GM/DL Albumin 4.0 GM/DL Lipase 177 U/L [facility] Medical Decision Making Medical Screen Exam Complete: Yes Emergency Medical Condition: Yes Medical Record Reviewed: Yes Interpretation(s) CBC & BMP Diagram 10/22/16 00:05 Vital Signs Date Time Temp Pulse Resp B/P Pulse Ox O2 Delivery O2 Flow Rate FiO2 10/22/16 01:20 78 16 192/84 98 Room Air 10/22/16 01:00 87 193/96 10/22/16 00:15 198/100 10/21/16 23:55 88 16 200/106 100 10/21/16 23:52 97.5 87 18 209/109 100 Differential Diagnosis Abdominal pain, gastroparesis, vomiting, food borne illness, electrolyte disturbance, uncontrolled hypertension, medical noncompliance, alcoholism, withdrawal Narrative Course IV access obtained specimens collected and sent resulting patient given Zofran 4 mg IV normal saline 125 cc per hour and clonidine After IV fluids and Zofran patient clinically improved Patient given additional dose of Zofran Patient's blood pressure today shows seen given additional dose of clonidine Patient desires being discharged to home lab values consistent with dehydration , stress demargination, is encouraged to increase fluid hydration Patient also given a refill prescription for Zofran and Phenergan and is otherwise stable for outpatient management and requests discharge from ED as has appointment. Diagnosis Primary Impression: Nausea & vomiting Qualified Code: R11.2 - Non-intractable vomiting with nausea, unspecified vomiting type Additional Impressions: Gastroparesis HTN (hypertension) Qualified Code: I10 - Essential hypertension Referrals: Primary Care Physician call for appointment Patient Instructions: General Instructions Additional Instructions: Increase fluid hydration Take medication as needed for nausea vomiting take clonidine as needed for breakthrough hypertension Follow-up with your primary care provider Med/Other Pt SpecificInfo: Prescription(s) given Scripts Clonidine 0.1 Mg Tab0.1 Mg PO Q12HR PRN (SBP>180, DBP>95) #6 TAB Ref 0 Prov:Adriana Simon MD 10/22/16 Ondansetron Odt (Zofran Odt)4 Mg Tab4 Mg SL Q6HR PRN (Nausea/Vomiting) #10 TAB Ref 0 Prov:Adriana Simon MD 10/22/16 Promethazine (Phenergan)25 Mg Uunmst13 Mg PO Q6H PRN (NAUSEA OR VOMITING) #10 TAB Ref 0 Prov:Adriana Simon MD 10/22/16 Disposition: 01 DISCHARGE HOME Condition: Stable Adriana Simon MD Oct 22, 2016 01:03
[2016-10-22] MEDS ORDERED: ONDANSETRON HCL 4 MG/2 ML VIAL IV PUSH ONE (01:15)
[2016-10-22 01:20] VITALS: BP 192/84; PULSE 78; RESP 16; O2SAT 98
[2016-10-22] MEDS ORDERED: ZOFR4TAB3 SL (01:51)
[2016-10-22] MEDS ORDERED: PROM25TA10 PO (01:51)
[2016-10-22] MEDS ORDERED: CLON0.1T PO (01:51)
[2016-10-22 02:01] VITALS: BP 190/89
== END 2016-10-22 02:04 | disposition home or self-care (01) ==
LOC: PHED 23:46
DX: E11.43 Type 2 diabetes mellitus with diabetic autonomic (poly)neuropathy (principal); K31.84 Gastroparesis; I10 Essential (primary) hypertension; Z79.82 Long term (current) use of aspirin; Z79.84 Long term (current) use of oral hypoglycemic drugs; Z79.899 Other long term (current) drug therapy
CPT/HCPCS: 80053; 83690; 83735; 85025; 96361; 96374; 96375; 99284; J2405; J7030

== ENCOUNTER 2017-01-13 18:30 | Inpatient (IN) | payer OTHER ==
[~2017-01-13] VITALS: Ht 177.8 cm; Wt 80.0 kg
[~2017-01-13 18:30] MED LIST changes: +CLON0.1T PO; -ZOFR8TAB PO
[2017-01-13 18:35] VITALS: BP 151/98; PULSE 97; RESP 18; TEMP 98.7; O2SAT 98
[2017-01-13] MEDS ORDERED: SODIUM CHLOR 0.9% 1000 ML INJ 1,000 ML IV ONE (18:50)
[2017-01-13] MEDS ORDERED: ONDANSETRON HCL 4 MG/2 ML VIAL IV PUSH ONE ×2 (19:00→20:45)
--- NOTE | 2017-01-13 19:01 | PD ---
HPI Chief Complaint: General Weakness Time Seen by Provider: 18:37 Travel History International Travel<30 days: No Contact w/Intl Traveler<30days: No Traveled to known affect area: No History of Present Illness HPI The patient is a 56-year-old male who presents to the emergency department for a one-day history of nausea, vomiting, and new onset tremors. The patient states she had an episode of nausea, vomiting, and tremors with diaphoresis 3 weeks ago. He called EMS to the house and his blood glucose was in the 30s and his blood pressure was low with a systolic in the 90s. The patient states she received IV fluids and glucose, his symptoms improve and he did not come to the emergency department. The patient saw his primary physician , Dr. Vazquez, to change some of his medications including taking him off of the Effexor and sulfonylurea medication he was taken for diabetes. The patient states earlier today he developed nausea and vomiting, has had 5 episodes of vomiting that is associated with diaphoresis and generalized weakness. He also complains of new onset tremors of his arms and legs, states he has difficulty ambulating secondary to the weakness and the tremors. He denies any headache, fever, chest pain, shortness of breath, diarrhea, or abdominal pain. He denies any associated dysuria. The patient denies any myalgias or arthralgias. He did receive his influenza vaccination this year. The primary physician is Dr. Jose Vazquez. [facility] Past Medical History Hx Anticoagulant Therapy: No Asthma: No Autoimmune Disease: No Anxiety: No Depression: No Cancer: Yes (PROSTATE IN 2011) Cardiovascular Problems: Yes (HTN, CHOL) High Cholesterol: Yes Chemotherapy: Yes COPD: No Cerebrovascular Accident: No Diabetes: Yes Patient Takes Glucophage: Yes Diminished Hearing: No Diverticulitis: No Endocrine: Yes Gastrointestinal Disorders: Yes (GASTROPARESIS) GERD: No Genitourinary: No Headaches: No Hiatal Hernia: No Heparin Induced Thrombocytopen: No Hypertension: Yes Immune Disorder: No Implanted Vascular Access Dvce: No Kidney Stones: No Musculoskeletal: No Neurologic: No Psychiatric: No Reproductive: No Respiratory: No Immunizations Current: Yes Migraines: No Pancreatitis: No Radiation Therapy: Yes (IN 2011 prostate ca) Renal Failure: No Seizures: No Sickle Cell Disease: No Thyroid Disease: No Triglycerides - High: Yes Ulcer: No Tetanus Vaccination: > 5 Years Influenza Vaccination: Yes PNEUMOCCOCAL Vaccine (Year): 2 Past Surgical History Abdominal Surgery: Yes (INGUINAL HERNIA) AICD: No Arteriovenous Shunt: No Cardiac Surgery: No Ear Surgery: No Endocrine Surgery: No Eye Surgery: No Genitourinary Surgery: No Gynecologic Surgery: No Insulin Pump: No Joint Replacement: No Neurologic Surgery: No Oral Surgery: No Pacemaker: No Thoracic Surgery: No Other Surgery: Yes (INGUINAL HERNIA REPAIR) Social History Alcohol Use: Yes (Socially DENIES) Tobacco Use: No Substance Use: No Allergies-Medications (Allergen,Severity, Reaction): Coded Allergies: amlodipine (Unverified Allergy, Severe, Twitching, 01/13/17) MYALGIA atorvastatin (Unverified Allergy, Severe, Twitching, 01/13/17) MYALGIA pravastatin (Unverified Allergy, Severe, Twitching, 01/13/17) MYALGIA simvastatin (Unverified Allergy, Severe, Twitching, 01/13/17) MYALGIA Reported Meds & Prescriptions Reported Meds & Active Scripts Active Reported Aspirin 81 (Aspirin) 81 Mg Tabdr 81 Mg PO DAILY Metoprolol Tartrate 100 Mg Tab 100 Mg PO BID Lisinopril 20 Mg Tab 20 Mg PO BID Review of Systems Except as stated in HPI: all other systems reviewed are Neg General / Constitutional: No: Fever Eyes: No: Blurred Vision HENT: No: Headaches, Lightheadedness Cardiovascular: No: Chest Pain or Discomfort Respiratory: No: Shortness of Breath Gastrointestinal: Positive: Nausea, Vomiting, No: Diarrhea, Abdominal Pain Genitourinary: No: Dysuria Musculoskeletal: Positive: Weakness, No: Myalgias, Arthralgias Neurologic: Positive: Tremor, No: Headache, Change in Mentation, Paresthesia, Sensory Disturbance Physical Exam Narrative GENERAL: Awake, alert, pleasant 56-year-old male who appears his stated age and is in no acute respiratory distress. SKIN: Focused skin assessment diaphoretic across the forehead. HEAD: Atraumatic. Normocephalic. EYES: Pupils equal and round. 3 mm bilateral equal, round, and reactive. EOMs are intact. He is able to see fingers at a distance of 2 feet without difficulty. ENT: No nasal bleeding or discharge. Dry mucous membranes. NECK: Trachea midline. No JVD. CARDIOVASCULAR: Regular rate and rhythm. No murmur appreciated. Heart rate in the 80s. RESPIRATORY: No accessory muscle use. Clear to auscultation. Breath sounds equal bilaterally. GASTROINTESTINAL: Abdomen soft, non-tender, nondistended. No rebound tenderness. MUSCULOSKELETAL: No obvious deformities. No clubbing. No cyanosis. No edema. Tremors noted of the hands when held against gravity and present at rest. Mild tremor the lower extremities when lifting against gravity but not present at rest. NEUROLOGICAL: Awake and alert. No obvious cranial nerve deficits. Motor grossly within normal limits. Normal speech. Nonfocal. Oriented 4. Back: No CVA tenderness. PSYCHIATRIC: Appropriate mood and affect; insight and judgment normal. Data Data Last Documented VS Vital Signs Date Time Temp Pulse Resp B/P (MAP) Pulse Ox O2 Delivery O2 Flow Rate FiO2 01/13/17 22:00 71 16 186/102 (130) 98 Room Air 01/13/17 19:30 97 01/13/17 18:35 98.7 Orders Orders Electrocardiogram (01/13/17 18:50) Complete Blood Count With Diff (01/13/17 18:50) Comprehensive Metabolic Panel (01/13/17 18:50) Magnesium (Mg) (01/13/17 18:50) Beta Hydroxybutyrate (Acetone) (01/13/17 18:50) Lactic Acid (01/13/17 18:50) Urinalysis - C+S If Indicated (01/13/17 18:50) Blood Glucose (01/13/17 18:50) Blood Glucose (01/13/17 19:50) Ecg Monitoring (01/13/17 18:50) Iv Access Insert/Monitor (01/13/17 18:50) Oximetry (01/13/17 18:50) NPO (01/13/17 18:50) Sodium Chloride 0.9% Flush (Ns Flush) (01/13/17 19:00) Sodium Chlor 0.9% 1000 Ml Inj (Ns 1000 M (01/13/17 18:50) Troponin I (01/13/17 18:50) Lipase (01/13/17 18:50) Ondansetron Inj (Zofran Inj) (01/13/17 19:00) Ct Brain W/O Iv Contrast(Rout) (01/13/17 ) Arterial Blood Gas (Abg) (01/13/17 ) Chest, Pa & Lat (01/13/17 19:57) Ondansetron Inj (Zofran Inj) (01/13/17 20:45) Lorazepam Inj (Ativan Inj) (01/13/17 21:45) Admit Order (Ed Use Only) (01/13/17 22:08) Labs Laboratory Tests Test 01/13/17 19:14 01/13/17 19:19 01/13/17 20:20 Blood Gas Puncture Site R WRIST Blood Gas Patient Temperature 98.6 Blood Gas HCO3 23 mmol/L Blood Gas Base Excess -0.7 mmol/L Blood Gas Oxygen Saturation 83 % Arterial Blood pH 7.43 Arterial Blood Partial Pressure CO2 36 mmHG Arterial Blood Partial Pressure O2 52 mmHG Arterial Blood Oxygen Content 16.4 Vol % Arterial Blood Carboxyhemoglobin 1.8 % Arterial Blood Methemoglobin 1.2 % Blood Gas Hemoglobin 14.2 G/DL Blood Gas Inspired Oxygen 21 % White Blood Count 6.9 TH/MM3 Red Blood Count 4.55 MIL/MM3 Hemoglobin 13.9 GM/DL Hematocrit 42.6 % Mean Corpuscular Volume 93.7 FL Mean Corpuscular Hemoglobin 30.5 PG Mean Corpuscular Hemoglobin Concent 32.6 % Red Cell Distribution Width 13.2 % Platelet Count 182 TH/MM3 Mean Platelet Volume 7.6 FL Neutrophils (%) (Auto) 77.8 % Lymphocytes (%) (Auto) 7.0 % Monocytes (%) (Auto) 14.8 % Eosinophils (%) (Auto) 0.2 % Basophils (%) (Auto) 0.2 % Neutrophils # (Auto) 5.4 TH/MM3 Lymphocytes # (Auto) 0.5 TH/MM3 Monocytes # (Auto) 1.0 TH/MM3 Eosinophils # (Auto) 0.0 TH/MM3 Basophils # (Auto) 0.0 TH/MM3 CBC Comment DIFF FINAL Differential Comment Blood Urea Nitrogen 16 MG/DL Creatinine 1.20 MG/DL Random Glucose 235 MG/DL Total Protein 7.5 GM/DL Albumin 3.7 GM/DL Calcium Level 8.5 MG/DL Magnesium Level 1.4 MG/DL Alkaline Phosphatase 71 U/L Aspartate Amino Transf (AST/SGOT) 46 U/L Alanine Aminotransferase (ALT/SGPT) 59 U/L Total Bilirubin 2.2 MG/DL Sodium Level 136 MEQ/L Potassium Level 4.4 MEQ/L Chloride Level 99 MEQ/L Carbon Dioxide Level 25.1 MEQ/L Anion Gap 12 MEQ/L Estimat Glomerular Filtration Rate 62 ML/MIN Lactic Acid Level 3.5 mmol/L Troponin I LESS THAN 0.02 NG/ML Lipase 228 U/L B-Hydroxybutyrate 0.95 MMOL/L Urine Color YELLOW Urine Turbidity CLEAR Urine pH 6.0 Urine Specific [place] 1.023 Urine Protein 300 OR GREATER mg/dL Urine Glucose (UA) 500 mg/dL Urine Ketones TRACE mg/dL Urine Occult Blood SMALL Urine Nitrite NEG Urine Bilirubin NEG Urine Leukocyte Esterase NEG Urine RBC 0-3 /hpf Urine Squamous Epithelial Cells 0-5 /hpf Urine Mucus FEW /lpf Microscopic Urinalysis Comment CULT NOT INDICATED MDM Medical Decision Making Medical Screen Exam Complete: Yes Emergency Medical Condition: Yes Medical Record Reviewed: Yes Differential Diagnosis Differential diagnosis includes hypoglycemia, hyperglycemia, hypercalcemia, hypocalcemia, hypokalemia, gastroparesis, medication withdrawal, STEMI, ACS, intracranial hemorrhage, viral syndrome, vagal syndrome. Narrative Course IV was established, labs are drawn and sent, and the patient was placed on cardiac telemetry monitoring and continuous pulse oximetry monitoring. EKG was ordered and interpreted. Stat CT of the brain without contrast was ordered. The patient was administered IV fluids and Zofran 4 mg intravenously. The patient's Accu-Chek revealed a glucose just over 200. The patient was signed out to the oncoming physician, Dr. Richardson, at 7 PM. Condition: Stable Enzo Arceo MD Jan 13, 2017 19:01
[2017-01-13] MEDS: SODIUM CHLORIDE 0.9% FLUSH 10 ML FLUSH IVF PRN ×3 (19:22→21:58)
[2017-01-13 19:30] VITALS: BP 176/82; PULSE 80; RESP 16; O2SAT 97
[2017-01-13 19:37] LABS: BLOOD GAS BASE EXCESS -0.7 mmol/L (-2-2); BLOOD GAS CARBOXYHEMOGLOBIN 1.8 % (0-4); BLOOD GAS HCO3 23 mmol/L (22-26); BLOOD GAS METHEMOGLOBIN 1.2 % (0-2); BLOOD GAS O2 HGB SATURATION 83 % (90-100); BLOOD GAS OXYGEN CONTENT 16.4 Vol % (12.0-20.0); BLOOD GAS PCO2 36 mmHG (38-42); BLOOD GAS PO2 52 mmHG (61-120); BLOOD GAS TOTAL HGB 14.2 G/DL (12.0-16.0); CRITICAL VALUE YES; TEMP CORR TO 98.6
[2017-01-13 19:38] LABS: DRAW SITE R WRIST; FIO2 21 %; STAT YES; ULNAR PULSE Y
--- NOTE | 2017-01-13 19:47 | RADRPT ---
EXAM DATE/TIME: 01/13/2017 19:08 [facility] COMPARISON: No previous studies available for comparison. INDICATIONS : Generalized weakness RADIATION DOSE: 61.41 CTDIvol (mGy) MEDICAL HISTORY : Hypertension. Diabetes mellitus type 2. SURGICAL HISTORY : None. ENCOUNTER: Initial ACUITY: 1 day PAIN SCALE: 0/10 LOCATION: cranial TECHNIQUE: Multiple contiguous axial images were obtained of the head. Using automated exposure control and adj ustment of the mA and/or kV according to patient size, radiation dose was kept as low as reasonably a chievable to obtain optimal diagnostic quality images. DICOM format image data is available electro nically for review and comparison. FINDINGS: CEREBRUM: The ventricles are normal for age. No evidence of midline shift, mass lesion, hemorrhage or acute in farction. No extra-axial fluid collections are seen. POSTERIOR FOSSA: The cerebellum and brainstem are intact. The 4th ventricle is midline. The cerebellopontine angle i s unremarkable. EXTRACRANIAL: The visualized portion of the orbits is intact. SKULL: The calvaria is intact. No evidence of skull fracture. CONCLUSION: Normal examination. Lauro Jarrell MD on January 13, 2017 at 19:45 Board Certified Radiologist. This report was verified electronically.
[2017-01-13 19:57] LABS: AUTOMATED NEUTROPHIL # 5.4 TH/MM3 (1.8-7.7); BASOPHIL % 0.2 % (0.0-2.0); EOSINOPHIL % 0.2 % (0.0-4.0); HEMATOCRIT 42.6 % (39.0-51.0); HEMO FLAGS DIFF FINAL; LYMPHOCYTE # 0.5 TH/MM3 (1.0-4.8); MEAN CELL VOLUME 93.7 FL (80.0-100.0); MEAN CORPUSCULAR HEMOGLOBIN 30.5 PG (27.0-34.0); MEAN CORPUSCULAR HGB CONC 32.6 % (32.0-36.0); MONO % 14.8 % (0.0-8.0); NEUT % 77.8 % (16.0-70.0); PLATELET COUNT 182 TH/MM3 (150-450); RED BLOOD COUNT 4.55 MIL/MM3 (4.50-5.90); RED CELL DISTRIBUTION WIDTH 13.2 % (11.6-17.2); WHITE BLOOD COUNT 6.9 TH/MM3 (4.0-11.0)
[2017-01-13 20:05] LABS: CHLORIDE 99 MEQ/L (98-107); POTASSIUM 4.4 MEQ/L (3.5-5.1); SODIUM (NA) 136 MEQ/L (136-145)
[2017-01-13 20:08] LABS: ANION GAP 12 MEQ/L (5-15); BICARBONATE 25.1 MEQ/L (21.0-32.0); BLOOD UREA NITROGEN 16 MG/DL (7-18); MAGNESIUM 1.4 MG/DL (1.5-2.5)
--- NOTE | 2017-01-13 20:10 | PD ---
Physical Exam Time Seen by Provider: 20:[address] Arceo left this patient with me to check the lab and make a disposition. Data Data Last Documented VS Vital Signs Date Time Temp Pulse Resp B/P (MAP) Pulse Ox O2 Delivery O2 Flow Rate FiO2 01/13/17 18:39 (115) 01/13/17 18:35 98.7 97 18 98 Room Air Orders Orders Electrocardiogram (01/13/17 18:50) Complete Blood Count With Diff (01/13/17 18:50) Comprehensive Metabolic Panel (01/13/17 18:50) Magnesium (Mg) (01/13/17 18:50) Beta Hydroxybutyrate (Acetone) (01/13/17 18:50) Lactic Acid (01/13/17 18:50) Urinalysis - C+S If Indicated (01/13/17 18:50) Blood Glucose (01/13/17 18:50) Blood Glucose (01/13/17 19:50) Ecg Monitoring (01/13/17 18:50) Iv Access Insert/Monitor (01/13/17 18:50) Oximetry (01/13/17 18:50) NPO (01/13/17 18:50) Sodium Chloride 0.9% Flush (Ns Flush) (01/13/17 19:00) Sodium Chlor 0.9% 1000 Ml Inj (Ns 1000 M (01/13/17 18:50) Troponin I (01/13/17 18:50) Lipase (01/13/17 18:50) Ondansetron Inj (Zofran Inj) (01/13/17 19:00) Ct Brain W/O Iv Contrast(Rout) (01/13/17 ) Arterial Blood Gas (Abg) (01/13/17 ) Chest, Pa & Lat (01/13/17 19:57) Ondansetron Inj (Zofran Inj) (01/13/17 20:45) Lorazepam Inj (Ativan Inj) (01/13/17 21:45) Labs Laboratory Tests Test 01/13/17 19:14 01/13/17 19:19 01/13/17 20:20 Blood Gas Puncture Site R WRIST Blood Gas Patient Temperature 98.6 Blood Gas HCO3 23 mmol/L Blood Gas Base Excess -0.7 mmol/L Blood Gas Oxygen Saturation 83 % Arterial Blood pH 7.43 Arterial Blood Partial Pressure CO2 36 mmHG Arterial Blood Partial Pressure O2 52 mmHG Arterial Blood Oxygen Content 16.4 Vol % Arterial Blood Carboxyhemoglobin 1.8 % Arterial Blood Methemoglobin 1.2 % Blood Gas Hemoglobin 14.2 G/DL Blood Gas Inspired Oxygen 21 % White Blood Count 6.9 TH/MM3 Red Blood Count 4.55 MIL/MM3 Hemoglobin 13.9 GM/DL Hematocrit 42.6 % Mean Corpuscular Volume 93.7 FL Mean Corpuscular Hemoglobin 30.5 PG Mean Corpuscular Hemoglobin Concent 32.6 % Red Cell Distribution Width 13.2 % Platelet Count 182 TH/MM3 Mean Platelet Volume 7.6 FL Neutrophils (%) (Auto) 77.8 % Lymphocytes (%) (Auto) 7.0 % Monocytes (%) (Auto) 14.8 % Eosinophils (%) (Auto) 0.2 % Basophils (%) (Auto) 0.2 % Neutrophils # (Auto) 5.4 TH/MM3 Lymphocytes # (Auto) 0.5 TH/MM3 Monocytes # (Auto) 1.0 TH/MM3 Eosinophils # (Auto) 0.0 TH/MM3 Basophils # (Auto) 0.0 TH/MM3 CBC Comment DIFF FINAL Differential Comment Blood Urea Nitrogen 16 MG/DL Creatinine 1.20 MG/DL Random Glucose 235 MG/DL Total Protein 7.5 GM/DL Albumin 3.7 GM/DL Calcium Level 8.5 MG/DL Magnesium Level 1.4 MG/DL Alkaline Phosphatase 71 U/L Aspartate Amino Transf (AST/SGOT) 46 U/L Alanine Aminotransferase (ALT/SGPT) 59 U/L Total Bilirubin 2.2 MG/DL Sodium Level 136 MEQ/L Potassium Level 4.4 MEQ/L Chloride Level 99 MEQ/L Carbon Dioxide Level 25.1 MEQ/L Anion Gap 12 MEQ/L Estimat Glomerular Filtration Rate 62 ML/MIN Lactic Acid Level 3.5 mmol/L Troponin I LESS THAN 0.02 NG/ML Lipase 228 U/L B-Hydroxybutyrate 0.95 MMOL/L Urine Color YELLOW Urine Turbidity CLEAR Urine pH 6.0 Urine Specific [place] 1.023 Urine Protein 300 OR GREATER mg/dL Urine Glucose (UA) 500 mg/dL Urine Ketones TRACE mg/dL Urine Occult Blood SMALL Urine Nitrite NEG Urine Bilirubin NEG Urine Leukocyte Esterase NEG Urine RBC 0-3 /hpf Urine Squamous Epithelial Cells 0-5 /hpf Urine Mucus FEW /lpf Microscopic Urinalysis Comment CULT NOT INDICATED MDM Medical Record Reviewed: Yes Supervised Visit with OLIVIER: Yes Narrative Course I called Dr. River Fields reviewed the chart. The patient does have a history of alcohol problems in the past. This does not appear to be Effexor withdrawal , this is possible alcohol withdrawal. The patient has a significant tremor and is very uncomfortable and anxious. Anxiety may be caused by the Effexor withdrawal but he did not appear to show it during the early days/weeks of his sudden discontinuance of Effexor. Physician Communication Physician Communication Discussed the patient with Dr. River Fields, the patient will be admitted to her. Diagnosis Primary Impression: Coarse tremors Additional Impression: Nausea & vomiting Admitting Information Admitting Physician Requests: Admit Condition: Stable Reji Richardson MD Jan 13, 2017 20:09
[2017-01-13 20:11] LABS: ALT (GPT) 59 U/L (12-78); AST (GOT) 46 U/L (15-37); GLOMERULAR FILTRATION RATE 62 ML/MIN (>89)
[2017-01-13 20:13] LABS: TOTAL BILIRUBIN ADULT 2.2 MG/DL (0.2-1.0)
[2017-01-13 20:14] LABS: ALKALINE PHOSPHATASE 71 U/L (45-117)
[2017-01-13 20:24] LABS: BETA-HYDROXYBUTYRATE 0.95 MMOL/L (0.00-0.39)
[2017-01-13 20:34] LABS: BLOOD, URINE SMALL (NEG); GLUCOSE,URINE 500 mg/dL (NEG); KETONE, URINE TRACE mg/dL (NEG); NITRITE,URINE NEG (NEG)
[2017-01-13 20:40] LABS: MUCUS URINE FEW /lpf (OCC); URINE COLOR YELLOW (YELLW/STRAW)
[2017-01-13 20:41] LABS: COMMENT (UR) CULT NOT INDICATED; CULTURE IF INDICATED CULT NOT INDICATED; RBC, URINE 0-3 /hpf (0-3); SQUAMOUS EPITHELIAL CELL URINE 0-5 /hpf (0-5)
[2017-01-13] MEDS ORDERED: LORazepam 2 MG/ML VIAL IV PUSH ONE (21:45)
[2017-01-13 22:00] VITALS: BP 186/102; PULSE 71; RESP 16; O2SAT 98
[2017-01-13] MEDS ORDERED: DEXTROSE 50% IN WATER 50 ML VIAL(D50) IV PUSH PRN (22:45)
[2017-01-13] MEDS ORDERED: FLUMAZENIL 0.5 MG/5 ML VIAL IV PUSH PRN (22:45)
[2017-01-13] MEDS ORDERED: ONDANSETRON HCL 4 MG/2 ML VIAL IV PUSH PRN (22:45)
[2017-01-13] MEDS ORDERED: GLUCAGON 1 MG/ML VIAL OTHER PRN (22:45)
[2017-01-13 22:59] VITALS: BP 190/90; PULSE 84; RESP 16; O2SAT 97
[2017-01-13] MEDS ORDERED: cloNIDine HCL 0.1 MG TAB PO PRN (23:00)
[2017-01-13] MEDS ORDERED: MAGNESIUM SULFATE 1 GM PREMIX 100 ML IV ONE (23:00)
--- NOTE | 2017-01-13 23:28 | RADRPT ---
EXAM DATE/TIME: 01/13/2017 23:09 [facility] COMPARISON: CHEST SINGLE AP, July 21, 2016, 2:54. INDICATIONS : Chest discomfort, nausea and vomiting starting today MEDICAL HISTORY : Hypertension. Diabetes mellitus type II. SURGICAL HISTORY : None. ENCOUNTER: Initial ACUITY: 1 day PAIN SCORE: 0/10 LOCATION: Bilateral chest FINDINGS: PA and lateral views of the chest demonstrate the lungs to be symmetrically aerated without evidence of mass, infiltrate or effusion. The cardiomediastinal contours are unremarkable. Osseous structure s are intact. Old left-sided rib fractures. CONCLUSION: No acute disease. Austin Ventura MD on January 13, 2017 at 23:26 Board Certified Radiologist. This report was verified electronically.
[2017-01-14] VITALS (7 sets, daily range): BP systolic 114–191; BP diastolic 70–95; PULSE 66–80; RESP 18–20; TEMP 96.1–98.2; O2SAT 92–100
[2017-01-14] MEDS: LORazepam 1 MG TAB PO PRN ×2 (03:53→09:30)
[2017-01-14 05:46] LABS: CHLORIDE 99 MEQ/L (98-107); POTASSIUM 4.1 MEQ/L (3.5-5.1); SODIUM (NA) 135 MEQ/L (136-145)
[2017-01-14 05:51] LABS: ANION GAP 9 MEQ/L (5-15); BICARBONATE 27.2 MEQ/L (21.0-32.0); BLOOD UREA NITROGEN 17 MG/DL (7-18)
[2017-01-14 05:53] LABS: ALT (GPT) 46 U/L (12-78); AST (GOT) 34 U/L (15-37)
[2017-01-14 05:54] LABS: GLOMERULAR FILTRATION RATE 62 ML/MIN (>89)
[2017-01-14 05:55] LABS: TOTAL BILIRUBIN ADULT 2.2 MG/DL (0.2-1.0)
[2017-01-14 05:56] LABS: ALKALINE PHOSPHATASE 57 U/L (45-117)
[2017-01-14] MEDS ORDERED: LISINOPRIL 20 MG TAB PO SCH (09:00)
[2017-01-14] MEDS ORDERED: METOPROLOL TARTRATE 100 MG TAB PO SCH (09:00)
[2017-01-14] MEDS: THIAMINE INJ 100 MG in SODIUM CHLORIDE 0.9% INJ 100 ML IV SCH (09:00)
[2017-01-14] MEDS: INSULIN ASPART SUPPLEMENTAL SCALE SQ SCH ×4 (09:20→19:57)
[2017-01-14] MEDS: FOLIC ACID 1 MG TAB PO SCH (09:22)
[2017-01-14] MEDS: MAGNESIUM OXIDE 400 MG TAB PO SCH (09:22)
[2017-01-14] MEDS: FAMOTIDINE 20 MG TAB PO SCH ×2 (09:22→19:50)
[2017-01-14] MEDS: ASPIRIN EC 81 MG TABEC PO SCH (09:22)
[2017-01-14] MEDS: SODIUM CHLORIDE 0.9% FLUSH 10 ML FLUSH IVF PRN (09:23)
[2017-01-14] MEDS: MULTIVITAMINS/MINERALS THERAPEUTIC TAB PO SCH (09:23)
[2017-01-14] MEDS ORDERED: LORazepam 1 MG TAB PO PRN (14:00)
--- NOTE | 2017-01-14 14:42 | MH ---
cc: ANDREW FINE DATE OF ADMISSION: 01/13/2017 ADMITTING DIAGNOSIS Nausea, vomiting, tremors. HISTORY OF PRESENT ILLNESS Mr. Chi is a 56-year-old gentleman who came to the emergency room after developing worsening nausea and vomiting and tremors. The patient states that he has not been doing well for the last several weeks. He attributes this to some change in his medications. Apparently he has been on Effexor for according to him over 15 years and over the last month this has been gradually stopped. He said once the Effexor stopped he noticed that he was having issues with a little more anxiety and some slight tremors. He thinks finally completely stopped the medication maybe 3 weeks ago. Approximately a week ago he had an episode at home where he became very diaphoretic and weak with the sudden onset of tremors. He called the paramedics. At that time his sugars were found to be in the 30s and his blood pressure was low. He is diabetic and was taking normally glimepiride and antihypertensives. At that time he was given some glucose, his sugars came up. He spoke to his primary care physician and his antihypertensives were cut in half and his glimepiride was stopped. He states he has continued with some of his anxiety issues and his tremors and these were becoming more noticeable to the people around him. Actually on the day that he came to the emergency room he was having significant nausea and vomiting which he attributed to his gastroparesis, which has taken him to the emergency room several times. This usually resolves with IV fluids and Zofran. However, he said that this time his blood pressure was also extremely elevated and along with the worsening tremors this concerned him to the degree that he presented to the ER. He states aside from this he has been in his usual health. He has noticed some weight loss in the last several months. He denies any chest pains or palpitations with any of these episodes. He says the tremors are of such severity that he is not able to hold anything in his hands. He says he may not have been eating as well lately as he should have as his partner has been out of town for the last two months and he has been eating out. He thinks that maybe contributed to some of his problems with his gastroparesis or nausea and vomiting. He notes that yesterday he did not eat that much as he was unable to keep the food down but this morning he has been able to eat a little bit better. He states the generalized weakness that came up on him yesterday is actually a little bit improved today. PAST MEDICAL HISTORY 1. Alcohol dependence in remission. 2. Anxiety. 3. Diabetes with gastroparesis. 4. Hypertension. 5. Hyperlipidemia. PAST SURGICAL HISTORY Inguinal hernia repair. ALLERGIES 1. AMLODIPINE. 2. ATORVASTATIN. 3. PRAVASTATIN. 4. SIMVASTATIN. MEDICATIONS Medications at the time of admission include: 1. Metoprolol 100 mg once a day. 2. Lisinopril 20 mg once a day. 3. A baby aspirin. HABITS He does not smoke. He does have a history of alcohol consumption and a prior history of alcohol abuse, however, this appears to be in remission. He does continue to drink according to him socially. He does not drink continuously on a regular basis. SOCIAL HISTORY He is currently retired. 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 He does have a significant other, gabriella, but presently he says that she is taking care of her grandchildren so he has been at home alone. REVIEW OF SYSTEMS See HPI. No fevers. No chills. No cough. No chest pain. He did have some diaphoresis with both of his episodes of tremor, one approximately a week ago and yesterday. He has had the nausea and vomiting but no diarrhea. He states he has had some decreased urination and he noticed that his urine has been darker. PHYSICAL EXAMINATION VITAL SIGNS: Temperature 98.2, pulse 80, respirations 20, blood pressure 134/84. Pulse ox is 94% on room air. GENERAL: He is sitting in the hospital bed. He is very calm and conversant, very pleasant. HEENT: Normocephalic, atraumatic. EOM is intact. He does have a moist oral mucosa. NECK: Supple. LUNGS: Clear to auscultation bilaterally. He is not wheezing. HEART: Regular. He is not tachycardic. ABDOMEN: Good bowel sounds in all four quadrants. No rebound or guarding. EXTREMITIES: No clubbing, cyanosis or edema. : In his urinal beside the bed his urine looks very dark. LABORATORY Blood work when he came into the emergency room: White count 6.9, hemoglobin 13.9, hematocrit 42.6, platelet count 182. Sodium 136, potassium 4.4, BUN 16, creatinine 1.2, GFR 62, random glucose 235, magnesium 1.4, total bili 2.2, AST 46. Troponin was less than 0.02. Lipase was 228. Beta-hydroxybutyrate was 0.95. UA showed 300 or greater protein with 500 glucose. Culture was not indicated. IMAGING CT scan of the brain was essentially normal. Chest x-ray showed no acute mass, infiltrate or effusion. He had small left-sided rib fractures. ASSESSMENT AND PLAN A 56-year-old gentleman presenting with nausea and vomiting and worsening tremors. At this point he certainly could have worsening of his gastroparesis. He seems to have done better with IV fluids and some Zofran; I will continue that. There is a question of whether or not he has also had some SSRI withdrawal syndrome. He has been on this medication for several years. At this point I see no reason not to resume them. I think after discussion with him it looks like he had actually come off of them perhaps because there were some issues with lack of insurance for a time period there. So I will go ahead and resume him at a lower dose of Effexor. Because of his history of alcohol consumption and presentation initially there was a concern that we may have been dealing with a little bit of alcohol withdrawal, but he denies any heavy alcohol use at this point. I will continue on the Ativan, however, for his anxiety. Will transition him to the p.o. He has not really had that much oral intake in terms of fluids since yesterday. I will go ahead and hydrate him and monitor his sugars and cover him with a sliding scale for now. It is unclear whether or not he will need to go back on his glimepiride. We may need to restart that at a low dose tomorrow if he is tolerating food without any nausea or vomiting. His blood pressure was initially high on presentation; this has actually come down. I will continue on the lower dose of antihypertensives that he says that he has been taking for the last week or so. Further recommendations as the case develops. Hopefully, will be able to discharge him by tomorrow morning. MD CECILIO Cruz /1:43 PM /2:09 PM
[2017-01-14] MEDS: VENLAFAXINE HCL XR 75 MG CAP PO SCH (15:25)
[2017-01-14] MEDS: SODIUM CHLOR 0.9% 1000 ML INJ 1,000 ML IV SCH ×2 (15:25→19:52)
--- NOTE | 2017-01-14 21:29 | EKG ---
Date Performed: 01/13/2017 Time Performed: 20:10:01 PTAGE: 56 years EKG: Sinus rhythm NORMAL ECG PREVIOUS TRACING : 09/02/2016 15.44 Compared to prior tracing no significant change DOCTOR: Conner Azevedo Interpretating Date/Time 01/14/2017 21:28:14
[2017-01-15] MEDS: SODIUM CHLOR 0.9% 1000 ML INJ 1,000 ML IV SCH ×2 (03:54→10:00)
[2017-01-15 04:00] VITALS: BP 118/73; PULSE 91; RESP 18; TEMP 96.5; O2SAT 97
--- NOTE | 2017-01-15 06:52 | HHI.PR ---
Subjective Remarks Feeling better. No vomiting. Tolerating oral intake. No more tremor and feeling less anxious. Patient admits to me that he had been drinking more of late. He believes Effexor helped him not drink alcohol. Objective Vitals Vital Signs Date Time Temp Pulse Resp B/P (MAP) Pulse Ox O2 Delivery O2 Flow Rate FiO2 01/15/17 04:00 96.5 91 18 118/73 (88) 97 01/14/17 23:53 96.1 67 19 137/70 (92) 92 01/14/17 20:00 96.6 68 18 144/72 (96) 93 01/14/17 16:00 97.1 69 20 137/85 (102) 94 01/14/17 12:00 97.5 66 20 114/85 (95) 98 01/14/17 08:02 98.2 80 20 134/84 (101) 94 GENERAL: Sleeping, arouses to voice, alert and oriented. Cooperative. Was able to walk around in the room with IV pole unassisted. SKIN: Warm and dry. Abrasion right forearm. HEAD: Normocephalic. EYES: No scleral icterus. No injection or drainage. NECK: Supple, trachea midline. No JVD or lymphadenopathy. CARDIOVASCULAR: Regular rate and rhythm without murmurs, gallops, or rubs. RESPIRATORY: Breath sounds equal bilaterally. No accessory muscle use. GASTROINTESTINAL: Abdomen soft, non-tender, nondistended. MUSCULOSKELETAL: No cyanosis, or edema. No tremor. Moves all extremities well. No asterixis. BACK: Nontender without obvious deformity. Result Diagram: 01/13/17 19101/14/17 0500 Urinary Catheter: No Vascular Central Line Catheter: No A/P Problem List: (1) Gastroparesis due to DM ICD Codes: E11.43 - Gastroparesis due to DM Status: Acute Plan: Improved with IV fluid and anti-emetics. Recurrent issue. Encouraged alcohol abstinence. (2) Alcohol abuse ICD Codes: F10.10 - Alcohol abuse Status: Chronic Plan: Encouraged alcohol abstinence. Offered counseling. He declines counseling at this point. He understands the risk of continued consumption of alcohol. (3) Diabetic nephropathy ICD Codes: E11.21 - Diabetic nephropathy Status: Chronic Plan: Resume home medication. We had recently decreased his sulfonylurea dosing due to hypoglycemic episode. (4) Hypomagnesemia ICD Codes: E83.42 - Hypomagnesemia Status: Acute Plan: Continue oral supplementation. Abstain from alcohol. (5) Anxiety ICD Codes: F41.9 - Anxiety Status: Chronic Plan: Effexor has been resumed. He seems to be improved with this medication. Ativan as needed. Discharge Planning Discharge home later today. Follow-up with me next week. Problem Qualifiers (1) Diabetic nephropathy: Qualified Codes: E11.21 - Type 2 diabetes mellitus with diabetic nephropathy Vamsi Vazquez MD PhD Jan 15, 2017 06:52
[2017-01-15] MEDS ORDERED: VENL75XR PO (06:57)
[2017-01-15] MEDS ORDERED: LORA-474 PO (06:57)
[2017-01-15] MEDS ORDERED: THERM PO (06:57)
[2017-01-15] MEDS ORDERED: MAGN400T3 PO (06:57)
[2017-01-15] MEDS ORDERED: METF500T4 PO (07:06)
[2017-01-15] MEDS: INSULIN ASPART SUPPLEMENTAL SCALE SQ SCH (07:46)
[2017-01-15 07:54] LABS: BICARBONATE 27.5 MEQ/L (21.0-32.0)
[2017-01-15 08:00] VITALS: BP 142/90; PULSE 80; RESP 20; TEMP 98.1; O2SAT 97
[2017-01-15] MEDS ORDERED: LISINOPRIL 20 MG TAB PO SCH (09:00)
[2017-01-15] MEDS: THIAMINE INJ 100 MG in SODIUM CHLORIDE 0.9% INJ 100 ML IV SCH (09:00)
[2017-01-15] MEDS ORDERED: METOPROLOL TARTRATE 100 MG TAB PO SCH (09:00)
[2017-01-15] MEDS: ASPIRIN EC 81 MG TABEC PO SCH (09:41)
[2017-01-15] MEDS: VENLAFAXINE HCL XR 75 MG CAP PO SCH (09:41)
[2017-01-15] MEDS: FOLIC ACID 1 MG TAB PO SCH (09:41)
[2017-01-15] MEDS: FAMOTIDINE 20 MG TAB PO SCH (09:42)
[2017-01-15] MEDS: MAGNESIUM OXIDE 400 MG TAB PO SCH (09:42)
[2017-01-15] MEDS: MULTIVITAMINS/MINERALS THERAPEUTIC TAB PO SCH (09:43)
== END 2017-01-15 10:56 | disposition home or self-care (01) | DRG 74 ==
LOC: PHED 18:30 → PHEDA 22:09 → PH3B 23:15
PROVIDERS: ADMIT Legal Medicine; ATTEND Legal Medicine
DX: E11.43 Type 2 diabetes mellitus with diabetic autonomic (poly)neuropathy (principal); E11.21 Type 2 diabetes mellitus with diabetic nephropathy; K31.84 Gastroparesis; F10.10 Alcohol abuse, uncomplicated; E83.42 Hypomagnesemia; F41.9 Anxiety disorder, unspecified; I10 Essential (primary) hypertension; Z85.46 Personal history of malignant neoplasm of prostate; R25.1 Tremor, unspecified; Z79.84 Long term (current) use of oral hypoglycemic drugs; E78.5 Hyperlipidemia, unspecified
CPT/HCPCS: 70450; 71020; 80048; 80053; 81001; 82010; 82805; 82948; 83605; 83690; 83735; 84484; 85025; 93005; 96361; 96374; 96375; 96376; J1815; J2060; J2405; J7030

== ENCOUNTER 2017-04-17 11:15 | Observation (INO) | payer OTHER ==
[~2017-04-17] VITALS: Ht 177.8 cm; Wt 81.7 kg
[~2017-04-17 11:15] MED LIST changes: -ASPI-110 PO; +ASPI1TAB57 PO; -CLON0.1T PO; -GLIM2TAB PO; +LORA-474 PO; +MAGN400T3 PO; +METF500T4 PO; -PROM25TA10 PO; +THERM PO; -VENL75TA PO; +VENL75XR PO
[2017-04-17 11:25] VITALS: BP 218/100; PULSE 135; RESP 16; TEMP 98; O2SAT 99
[2017-04-17] MEDS ORDERED: ONDANSETRON HCL 4 MG/2 ML VIAL IV PUSH ONE ×2 (12:00→12:45)
[2017-04-17] MEDS ORDERED: SODIUM CHLOR 0.9% 1000 ML INJ 1,000 ML IV ONE ×3 (12:00→14:15)
[2017-04-17 12:07] LABS: AUTOMATED NEUTROPHIL # 12.3 TH/MM3 (1.8-7.7); BASOPHIL % 0.2 % (0.0-2.0); EOSINOPHIL % 0.1 % (0.0-4.0); HEMATOCRIT 46.6 % (39.0-51.0); HEMOGLOBIN 15.8 GM/DL (13.0-17.0); LYMPH % 5.5 % (9.0-44.0); LYMPHOCYTE # 0.8 TH/MM3 (1.0-4.8); MEAN CELL VOLUME 89.1 FL (80.0-100.0); MEAN CORPUSCULAR HEMOGLOBIN 30.2 PG (27.0-34.0); MEAN CORPUSCULAR HGB CONC 33.9 % (32.0-36.0); MONO % 6.3 % (0.0-8.0); MONOCYTE # 0.9 TH/MM3 (0-0.9); NEUT % 87.9 % (16.0-70.0); PLATELET COUNT 249 TH/MM3 (150-450); RED BLOOD COUNT 5.23 MIL/MM3 (4.50-5.90); RED CELL DISTRIBUTION WIDTH 12.3 % (11.6-17.2)
[2017-04-17 12:17] LABS: CALCIUM 9.7 MG/DL (8.5-10.1)
[2017-04-17 12:18] LABS: BICARBONATE 19.1 MEQ/L (21.0-32.0)
[2017-04-17 12:21] LABS: CREATININE 1.6 MG/DL (0.60-1.30)
--- NOTE | 2017-04-17 12:48 | PD ---
HPI . Vomiting Chief Complaint: GI Complaint Time Seen by Provider: 11:51 Travel History International Travel<30 days: No Contact w/Intl Traveler<30days: No Traveled to known affect area: No History of Present Illness HPI This is a patient with gastroparesis who presents with chief complaint of vomiting which started about 24 hours ago. He guesses approximately 12 episodes of emesis. He states that his main complaint right now is dry heaves. He states that he is usually treated with a couple of liters of fluid and a couple of doses of Zofran. He cannot think of an inside and factor. He has had no known exposures. He denies fever. No diarrhea. PFSH Past Medical History Hx Anticoagulant Therapy: No Asthma: No Autoimmune Disease: No Anxiety: No Depression: No Heart Rhythm Problems: No Cancer: Yes (PROSTATE IN 2011) Cardiovascular Problems: Yes (htn on meds) High Cholesterol: Yes Chemotherapy: No Chest Pain: No Congestive Heart Failure: No COPD: No Cerebrovascular Accident: No Diabetes: Yes (type 2) Patient Takes Glucophage: Yes (04-16-17 0800) Diminished Hearing: No Diverticulitis: No Endocrine: Yes Gastrointestinal Disorders: Yes (GASTROPARESIS) GERD: No Genitourinary: No Headaches: No Hiatal Hernia: No Heparin Induced Thrombocytopen: No Hypertension: Yes Immune Disorder: No Implanted Vascular Access Dvce: No Kidney Stones: No Musculoskeletal: No Neurologic: No Psychiatric: No Reproductive: No Respiratory: No Immunizations Current: Yes Migraines: No Pancreatitis: No Radiation Therapy: Yes (IN 2011 prostate ca) Renal Failure: No Seizures: No Sickle Cell Disease: No Thyroid Disease: No Triglycerides - High: Yes Ulcer: No Tetanus Vaccination: < 5 Years Influenza Vaccination: Yes PNEUMOCCOCAL Vaccine (Year): 2 Past Surgical History Abdominal Surgery: Yes (INGUINAL HERNIA) AICD: No Arteriovenous Shunt: No Cardiac Surgery: No Ear Surgery: No Endocrine Surgery: No Eye Surgery: No Genitourinary Surgery: Yes (PROSTATE) Gynecologic Surgery: No Insulin Pump: No Joint Replacement: No Neurologic Surgery: No Oral Surgery: No Pacemaker: No Thoracic Surgery: No Other Surgery: Yes (INGUINAL HERNIA REPAIR) Social History Alcohol Use: Yes (Socially DENIES) Tobacco Use: No Substance Use: No Allergies-Medications (Allergen,Severity, Reaction): Coded Allergies: amlodipine (Unverified Allergy, Severe, Twitching, 04/17/17) MYALGIA atorvastatin (Unverified Allergy, Severe, Twitching, 04/17/17) MYALGIA pravastatin (Unverified Allergy, Severe, Twitching, 04/17/17) MYALGIA simvastatin (Unverified Allergy, Severe, Twitching, 04/17/17) MYALGIA Reported Meds & Prescriptions Reported Meds & Active Scripts Active Metformin ER (Metformin HCl) 500 Mg Madison 500 Mg PO DAILY With evening meal Thera M Plus (Multivitamins/Minerals Therapeutic) 1 Tab 1 Tab PO DAILY Magnesium Oxide 400 Mg Tab 400 Mg PO DAILY Ativan (Lorazepam) 1 Mg Tab 1 Mg PO Q12HR PRN Effexor XR 24 HR (Venlafaxine HCl) 75 Mg Cap 75 Mg PO DAILY Reported Aspirin 81 (Aspirin) 81 Mg Tabdr 81 Mg PO DAILY Metoprolol Tartrate 100 Mg Tab 100 Mg PO BID Lisinopril 20 Mg Tab 20 Mg PO BID Review of Systems Except as stated in HPI: all other systems reviewed are Neg General / Constitutional: No: Fever, Chills Gastrointestinal: Positive: Nausea, Vomiting, No: Diarrhea Physical Exam Narrative GENERAL: Awake and alert. No smell ketones. SKIN: warm/dry. Normal color and turgor. HEAD: Normocephalic. Atraumatic. EYES: Pupils equal and round. No scleral icterus. No injection or drainage. ENT: No nasal bleeding or discharge. Mucous membranes pink and moist. NECK: Trachea midline. Full range of motion without pain.. CARDIOVASCULAR: Regular rate and rhythm. RESPIRATORY: No accessory muscle use. Clear to auscultation. Breath sounds equal bilaterally. GASTROINTESTINAL: Abdomen soft. Nontender. Bowel sounds present. Nondistended. MUSCULOSKELETAL: No obvious deformities. NEUROLOGICAL: Awake and alert. No obvious cranial nerve deficits. Motor grossly within normal limits. Normal speech. PSYCHIATRIC: Appropriate mood and affect; insight and judgment normal. Data Data Last Documented VS Vital Signs Date Time Temp Pulse Resp B/P (MAP) Pulse Ox O2 Delivery O2 Flow Rate FiO2 04/17/17 12:53 104 18 198/79 (118) 97 Room Air 04/17/17 11:25 98.0 Orders Orders Sodium Chlor 0.9% 1000 Ml Inj (Ns 1000 M (04/17/17 12:00) Ondansetron Inj (Zofran Inj) (04/17/17 12:00) Basic Metabolic Panel (Bmp) (04/17/17 11:55) Complete Blood Count With Diff (04/17/17 11:55) Lactic Acid (04/17/17 11:55) Iv Access Insert/Monitor (04/17/17 11:55) Sodium Chlor 0.9% 1000 Ml Inj (Ns 1000 M (04/17/17 12:45) Ondansetron Inj (Zofran Inj) (04/17/17 12:45) Lorazepam Inj (Ativan Inj) (04/17/17 14:15) Sodium Chlor 0.9% 1000 Ml Inj (Ns 1000 M (04/17/17 14:15) Labs Laboratory Tests Test 04/17/17 11:40 White Blood Count 14.0 TH/MM3 Red Blood Count 5.23 MIL/MM3 Hemoglobin 15.8 GM/DL Hematocrit 46.6 % Mean Corpuscular Volume 89.1 FL Mean Corpuscular Hemoglobin 30.2 PG Mean Corpuscular Hemoglobin Concent 33.9 % Red Cell Distribution Width 12.3 % Platelet Count 249 TH/MM3 Mean Platelet Volume 8.0 FL Neutrophils (%) (Auto) 87.9 % Lymphocytes (%) (Auto) 5.5 % Monocytes (%) (Auto) 6.3 % Eosinophils (%) (Auto) 0.1 % Basophils (%) (Auto) 0.2 % Neutrophils # (Auto) 12.3 TH/MM3 Lymphocytes # (Auto) 0.8 TH/MM3 Monocytes # (Auto) 0.9 TH/MM3 Eosinophils # (Auto) 0.0 TH/MM3 Basophils # (Auto) 0.0 TH/MM3 CBC Comment DIFF FINAL Differential Comment Blood Urea Nitrogen 24 MG/DL Creatinine 1.60 MG/DL Random Glucose 249 MG/DL Calcium Level 9.7 MG/DL Sodium Level 133 MEQ/L Potassium Level 4.4 MEQ/L Chloride Level 93 MEQ/L Carbon Dioxide Level 19.1 MEQ/L Anion Gap 21 MEQ/L Estimat Glomerular Filtration Rate 45 ML/MIN Lactic Acid Level 8.8 mmol/L MDM Medical Decision Making Medical Screen Exam Complete: Yes Emergency Medical Condition: Yes Medical Record Reviewed: Yes (medical history includes diabetes, gastroparesis and alcohol abuse. He was most recently admitted here in October 2016 for gastroparesis.) Differential Diagnosis Differential diagnosis includes but is not limited to viral gastritis, food poisoning, pancreatitis, pneumonia, hepatitis, acute coronary syndrome, Narrative Course This patient presents with nausea and vomiting presumably related to gastroparesis. His abdominal exam is benign. He appears well-hydrated. He does not have the appearance of a with patient in DKA. CBC & BMP Diagram 04/17/17 11:40 Calcium Level 9.7 LA 8.8 The case was discussed with Dr. Vazquez who recommended that I leave disposition to the patient. This patient has had numerous previous similar episodes and knows his body well. The patient was given a second liter fluid and a second dose of Zofran. Following this the patient stated that he did not feel that he was able to go home. I have ordered a third liter of fluid as well as some IV Ativan. The patient has become tremulous. He admits that he has been drinking. I'll also repeat his lactic acid level. Sepsis Criteria SIRS Criteria (2 or more): Heart rate over 90, WBC > 59077, < 4000 or > 10% bands Septic Shock Criteria: Lactic acid >=4 Criteria Outcome: Meets SIRS criteria Physician Communication Physician Communication Dr. Vazquez Diagnosis Primary Impression: Lactic acidosis Additional Impression: Gastroparesis due to DM Admitting Information Admitting Physician Requests: Observation Condition: Stable Azeb Chicas MD Apr 17, 2017 12:48
[2017-04-17 12:53] VITALS: BP 198/79; PULSE 104; RESP 18; O2SAT 97
[2017-04-17] MEDS ORDERED: LORazepam 2 MG/ML VIAL IV PUSH SCH (14:15)
[2017-04-17 15:01] VITALS: BP 211/103; PULSE 100; RESP 18; O2SAT 98
[2017-04-17 15:29] VITALS: BP 187/103; PULSE 100; RESP 18; TEMP 98; O2SAT 99
[2017-04-17] MEDS ORDERED: ONDANSETRON HCL 4 MG/2 ML VIAL IV PUSH PRN (16:45)
[2017-04-17] MEDS ORDERED: LORazepam 1 MG TAB PO PRN (16:45)
[2017-04-17] MEDS ORDERED: LORazepam 2 MG TAB PO PRN (16:45)
[2017-04-17] MEDS ORDERED: guaiFENesin/DEXTROMETHORPHAN 200 MG/20 MG/10 ML CUP PO PRN (16:45)
[2017-04-17] MEDS ORDERED: LORazepam 2 MG/ML VIAL IV PUSH PRN ×4 (16:45)
[2017-04-17] MEDS ORDERED: FLUMAZENIL 0.5 MG/5 ML VIAL IV PUSH PRN (16:45)
--- NOTE | 2017-04-17 16:47 | HHI.HP ---
HPI Service [facility] Hospitalists Primary Care Physician Vamsi Vazquez MD, PhD Admission Diagnosis vomiting, gastroparesis, lactic acidosis, EtOH abuse Chief Complaint: n,v, EtOH abuse Travel History International Travel<30 Days: No Contact w/Intl Traveler <30 Da: No Traveled to Known Affected Are: No History of Present Illness This is a patient with well-known to me with gastroparesis who presents with chief complaint of vomiting which started about 24 hours ago. He estimates that he has had approximately 12 episodes of emesis. He states that his main complaint right now is dry heaves. He states that he is usually treated with a couple of liters of fluid and a couple of doses of Zofran. He notes that he had had some upper respiratory complaints the last few days but only started vomiting yesterday. No foreign travel. No rash. Reports that he had been abstaining from alcohol but drank 4 glasses of wine yesterday. He has had no known exposures. He denies fever. No diarrhea. He is already feeling somewhat better after IV fluid and Zofran. Review of Systems Constitutional: COMPLAINS OF: Diaphoretic episodes, Fatigue, Chills, Change in appetite, DENIES: Fever, Weight gain, Weight loss, Dizziness, Night Sweats Endocrine: COMPLAINS OF: Polydipsia Eyes: DENIES: Blurred vision, Diplopia, Eye inflammation, Eye pain, Vision loss , Photosensitivity, Double Vision Ears, nose, mouth, throat: DENIES: Tinnitus, Hearing loss, Vertigo, Nasal discharge, Oral lesions, Throat pain, Hoarseness, Ear Pain, Running Nose, Epistaxis, Sinus Pain, Toothache, Odynophagia Respiratory: COMPLAINS OF: Cough, Sputum production, DENIES: Apneas, Snoring, Wheezing, Hemoptysis, Shortness of breath Cardiovascular: COMPLAINS OF: Chest pain, Palpitations, Syncope, Dyspnea on Exertion, PND, Lower Extremity Edema, Orthopnea, Claudication Gastrointestinal: COMPLAINS OF: Abdominal pain, GERD, Nausea, Vomiting, DENIES : Black stools, Bloody stools, BRB per rectum, Constipation, Diarrhea, Reflux, Difficulty Swallowing, Anorexia, See HPI Musculoskeletal: COMPLAINS OF: Back pain, DENIES: Joint pain, Muscle aches, Stiffness, Joint Swelling, Neck pain Integumentary: DENIES: Abnormal pigmentation, Nail changes, Pruritus, Rash Hematologic/lymphatic: DENIES: Bruising, Lymphadenopathy Neurologic: DENIES: Abnormal gait, Headache, Localized weakness, Paresthesias, Seizures, Speech Problems, Tremor, Poor Balance Psychiatric: COMPLAINS OF: Anxiety Past Family Social History Past Medical History 1. Alcohol dependence in partial remission, but recent abuse. 2. Anxiety. 3. Diabetes with gastroparesis. 4. Hypertension. 5. Hyperlipidemia. Past Surgical History Inguinal hernia repair. Reported Medications Metformin ER (Metformin HCl) 500 Mg Madison 500 Mg PO DAILY With evening meal Thera M Plus (Multivitamins/Minerals Therapeutic) 1 Tab 1 Tab PO DAILY Magnesium Oxide 400 Mg Tab 400 Mg PO DAILY Ativan (Lorazepam) 1 Mg Tab 1 Mg PO Q12HR PRN Effexor XR 24 HR (Venlafaxine HCl) 75 Mg Cap 75 Mg PO DAILY Aspirin 81 (Aspirin) 81 Mg Tabdr 81 Mg PO DAILY Metoprolol Tartrate 100 Mg Tab 100 Mg PO BID Lisinopril 20 Mg Tab 20 Mg PO BID Allergies: Coded Allergies: amlodipine (Unverified Allergy, Severe, Twitching, 04/17/17) MYALGIA atorvastatin (Unverified Allergy, Severe, Twitching, 04/17/17) MYALGIA pravastatin (Unverified Allergy, Severe, Twitching, 04/17/17) MYALGIA simvastatin (Unverified Allergy, Severe, Twitching, 04/17/17) MYALGIA Family History nc Social History He does not smoke. He does have a history of alcohol consumption and a prior history of alcohol abuse. He reports that he does not drink continuously on a regular basis any longer, but did drink 4 glasses of wine yesterday. Reports last EtOH intake prior to yesterday was over a week ago. He is currently retired. 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 He does have a significant other, gabriella, but presently he says that she is taking care of her father so he has been at home alone with his dog. Has a daughter who no longer lives in the area. Physical Exam Vital Signs Vital Signs Date Time Temp Pulse Resp B/P (MAP) Pulse Ox O2 Delivery O2 Flow Rate FiO2 04/17/17 15:29 98.0 100 18 187/103 (131) 99 04/17/17 15:14 04/17/17 15:01 100 18 211/103 (139) 98 Room Air 1/21/18 12:53 104 18 198/79 (118) 97 Room Air 04/17/17 11:25 98.0 135 16 218/100 (139) 99 Physical Exam GENERAL: This is a well-nourished, well-developed patient, in no apparent distress. Alert and oriented. SKIN: No rashes, ecchymoses or lesions. Cool and dry. HEAD: Atraumatic. Normocephalic. No temporal or scalp tenderness. EYES: Pupils equal round and reactive. Extraocular motions intact. No scleral icterus. No injection or drainage. ENT: Nose without bleeding, purulent drainage or septal hematoma. Airway patent. NECK: Trachea midline. No JVD or lymphadenopathy. Supple, nontender, no meningeal signs. CARDIOVASCULAR: Regular rate and rhythm without murmurs, gallops, or rubs. Rate in the low 100s on my exam. RESPIRATORY: Clear to auscultation. Breath sounds equal bilaterally. No wheezes , rales, or rhonchi. GASTROINTESTINAL: Abdomen soft, non-tender, nondistended. No hepato-splenomegaly , or palpable masses. No guarding. No rebound. Bowel sounds normal. MUSCULOSKELETAL: Extremities without clubbing, cyanosis, or edema. No joint tenderness, effusion, or edema noted. No calf tenderness. NEUROLOGICAL: Awake and alert. Cranial nerves II through XII intact. Motor and sensory grossly within normal limits. Five out of 5 muscle strength in all muscle groups. Normal speech. No tremor. Laboratory Laboratory Tests Test 04/17/17 11:40 04/17/17 13:55 White Blood Count 14.0 Red Blood Count 5.23 Hemoglobin 15.8 Hematocrit 46.6 Mean Corpuscular Volume 89.1 Mean Corpuscular Hemoglobin 30.2 Mean Corpuscular Hemoglobin Concent 33.9 Red Cell Distribution Width 12.3 Platelet Count 249 Mean Platelet Volume 8.0 Neutrophils (%) (Auto) 87.9 Lymphocytes (%) (Auto) 5.5 Monocytes (%) (Auto) 6.3 Eosinophils (%) (Auto) 0.1 Basophils (%) (Auto) 0.2 Neutrophils # (Auto) 12.3 Lymphocytes # (Auto) 0.8 Monocytes # (Auto) 0.9 Eosinophils # (Auto) 0.0 Basophils # (Auto) 0.0 CBC Comment DIFF FINAL Differential Comment Blood Urea Nitrogen 24 Creatinine 1.60 Random Glucose 249 Calcium Level 9.7 Sodium Level 133 Potassium Level 4.4 Chloride Level 93 Carbon Dioxide Level 19.1 Anion Gap 21 Estimat Glomerular Filtration Rate 45 Lactic Acid Level 8.8 4.2 Result Diagram: 04/17/17 1140 04/17/17 1140 Caprini VTE Risk Assessment Caprini VTE Risk Assessment: Mod/High Risk (score >= 2) Caprini Risk Assessment Model Point Value = 1 Point Value = 2 Point Value = 3 Point Value = 5 Age 41-60 Minor surgery BMI > 25 kg/m2 Swollen legs Varicose veins or History of unexplained or recurrent spontaneous Oral contraceptives or hormone replacement Sepsis (< 1 month) Serious lung disease, including pneumonia (< 1 month) Abnormal pulmonary function Acute myocardial infarction Congestive heart failure (< 1 month) History of inflammatory bowel disease Medical patient at bed rest Age 61-74 Arthroscopic surgery Major open surgery (> 45 min) Laparoscopic surgery (> 45 min) Malignancy Confined to bed (> 72 hours) Immobilizing plaster cast Central venous access Age >= 75 History of VTE Family history of VTE Factor V Leiden Prothrombin [id number] Lupus anticoagulant Anticardiolipin antibodies Elevated serum homocysteine Heparin-induced thrombocytopenia Other congenital or acquired thrombophilia Stroke (< 1 month) Elective arthroplasty Hip, pelvis, or leg fracture Acute spinal cord injury (< 1 month) Prophylaxis Regimen Total Risk Factor Score Risk Level Prophylaxis Regimen 0-1 Low Early ambulation 2 Moderate Order ONE of the following: *Sequential Compression Device (SCD) *Heparin 5000 units SQ BID 3-4 Higher Order ONE of the following medications: *Heparin 5000 units SQ TID *Enoxaparin/Lovenox 40 mg SQ daily (WT < 150 kg, CrCl > 30 mL/min) *Enoxaparin/Lovenox 30 mg SQ daily (WT < 150 kg, CrCl > 10-29 mL/min) *Enoxaparin/Lovenox 30 mg SQ BID (WT < 150 kg, CrCl > 30 mL/min) AND/OR *Sequential Compression Device (SCD) 5 or more Highest Order ONE of the following medications: *Heparin 5000 units SQ TID (Preferred with Epidurals) *Enoxaparin/Lovenox 40 mg SQ daily (WT < 150 kg, CrCl > 30 mL/min) *Enoxaparin/Lovenox 30 mg SQ daily (WT < 150 kg, CrCl > 10-29 mL/min) *Enoxaparin/Lovenox 30 mg SQ BID (WT < 150 kg, CrCl > 30 mL/min) AND *Sequential Compression Device (SCD) Assessment and Plan Problem List: (1) Gastroparesis ICD Codes: K31.84 - Gastroparesis Status: Acute Plan: Recurrent problem. Likely exacerbated by his recent alcohol binge which seems to be a pattern for him. Clinically improving with volume expansion with IV fluid. Continue IV fluids and anti-emetics. Hopefully discharge home tomorrow. (2) Nausea & vomiting ICD Codes: R11.2 - Nausea with vomiting, unspecified Status: Acute Plan: As above. (3) Lactic acidosis ICD Codes: E87.2 - Acidosis Status: Acute Plan: Likely due to volume contraction and recent mild illness. Lactic acid are to improve with IV fluid. Continue to monitor. Patient does not appear toxic. (4) Diabetic nephropathy ICD Codes: E11.21 - Diabetic nephropathy Status: Chronic Plan: Accu-Chek with sliding scale insulin. (5) Hypertension ICD Codes: I10 - Hypertension Status: Chronic Plan: Resume home medication. (6) Anxiety ICD Codes: F41.9 - Anxiety Status: Chronic Plan: Ativan when necessary. Effexor. (7) Alcohol abuse ICD Codes: F10.10 - Alcohol abuse Status: Chronic Plan: I have had multiple discussions regarding his need to abstain from alcohol. We'll initiate CIWA protocol. Code Status full Discussed Condition With Patient and ER provider. Problem Qualifiers (1) Diabetic nephropathy: Qualified Codes: E11.21 - Type 2 diabetes mellitus with diabetic nephropathy (2) Hypertension: Qualified Codes: I10 - Essential (primary) hypertension Vamsi Vazquez MD PhD Apr 17, 2017 16:47
[2017-04-17] MEDS: INSULIN ASPART SUPPLEMENTAL SCALE SQ SCH ×2 (17:00→21:00)
[2017-04-17] MEDS ORDERED: ENOXAPARIN SODIUM 30 MG/0.3 ML SYRINGE SQ SCH (17:00)
[2017-04-17] MEDS: SODIUM CHLOR 0.9% 1000 ML INJ 1,000 ML IV SCH (18:38)
[2017-04-17 20:00] VITALS: BP 174/77; PULSE 110; RESP 16; TEMP 98.5; O2SAT 94
[2017-04-17] MEDS: METOPROLOL TARTRATE 100 MG TAB PO SCH (20:43)
[2017-04-18] VITALS: BP 139/66; PULSE 74; RESP 16; TEMP 98.8; O2SAT 95
[2017-04-18] MEDS: SODIUM CHLOR 0.9% 1000 ML INJ 1,000 ML IV SCH (03:57)
[2017-04-18 07:21] LABS: ALBUMIN 2.8 GM/DL (3.4-5.0); ALKALINE PHOSPHATASE 48 U/L (45-117); ALT (GPT) 21 U/L (12-78); AST (GOT) 28 U/L (15-37); BLOOD UREA NITROGEN 21 MG/DL (7-18); GLOMERULAR FILTRATION RATE 57 ML/MIN (>89); GLUCOSE,RANDOM 134 MG/DL (74-106); SODIUM (NA) 136 MEQ/L (136-145); TOTAL BILIRUBIN ADULT 1.5 MG/DL (0.2-1.0); TOTAL PROTEIN 5.5 GM/DL (6.4-8.2)
[2017-04-18 07:22] LABS: BICARBONATE 28.7 MEQ/L (21.0-32.0); CALCIUM 7.8 MG/DL (8.5-10.1); CHLORIDE 101 MEQ/L (98-107)
[2017-04-18] MEDS: INSULIN ASPART SUPPLEMENTAL SCALE SQ SCH (07:46)
[2017-04-18 08:00] VITALS: BP 143/84; PULSE 60; RESP 18; TEMP 97.5; O2SAT 97
[2017-04-18] MEDS: METOPROLOL TARTRATE 100 MG TAB PO SCH (08:22)
--- NOTE | 2017-04-18 08:47 | HHI.PR ---
Subjective Remarks Feeling better this morning. Does note a little pain in the diaphragm with deep inspiration but associates this with the dry heaves and vomiting over the last 2 days. We'll try breakfast and if he still feels well, will DC to home. Objective Vitals Vital Signs Date Time Temp Pulse Resp B/P (MAP) Pulse Ox O2 Delivery O2 Flow Rate FiO2 04/18/17 08:00 97.5 60 18 143/84 (103) 97 04/18/17 00:00 98.8 74 16 139/66 (90) 95 04/17/17 20:00 98.5 110 16 174/77 (109) 94 04/17/17 20:00 98.5 110 16 174/77 (109) 94 04/17/17 15:29 98.0 100 18 187/103 (131) 99 04/17/17 15:14 04/17/17 15:01 100 18 211/103 (139) 98 Room Air 04/17/17 12:53 104 18 198/79 (118) 97 Room Air 04/17/17 11:25 98.0 135 16 218/100 (139) 99 GENERAL: No acute distress, alert and oriented. SKIN: Warm and dry. HEAD: Normocephalic. EYES: No scleral icterus. No injection or drainage. NECK: Supple, trachea midline. No JVD or lymphadenopathy. CARDIOVASCULAR: Regular rate and rhythm without murmurs, gallops, or rubs. RESPIRATORY: Breath sounds equal bilaterally. No accessory muscle use. GASTROINTESTINAL: Abdomen soft, non-tender, nondistended. Bowel sounds normal. MUSCULOSKELETAL: No cyanosis, or edema. BACK: No CVA tenderness. Result Diagram: 04/17/17 1140 04/18/17 0605 Urinary Catheter: No Vascular Central Line Catheter: No A/P Problem List: (1) Gastroparesis ICD Codes: K31.84 - Gastroparesis Status: Acute Plan: Recurrent problem. Likely exacerbated by his recent alcohol binge which seems to be a pattern for him. Clinically improving with volume expansion with IV fluid. Continue IV fluids and anti-emetics. Hopefully discharge home later today. (2) Nausea & vomiting ICD Codes: R11.2 - Nausea with vomiting, unspecified Status: Acute Plan: As above. (3) Lactic acidosis ICD Codes: E87.2 - Acidosis Status: Acute Plan: Likely due to volume contraction and recent mild illness. Lactic acid are to improve with IV fluid. Continue to monitor. Patient does not appear toxic. (4) Diabetic nephropathy ICD Codes: E11.21 - Diabetic nephropathy Status: Chronic Plan: Accu-Chek with sliding scale insulin. Resume home meds at discharge. (5) Hypertension ICD Codes: I10 - Hypertension Status: Chronic Plan: Resume home medication. (6) Anxiety ICD Codes: F41.9 - Anxiety Status: Chronic Plan: Ativan when necessary. Effexor. (7) Alcohol abuse ICD Codes: F10.10 - Alcohol abuse Status: Chronic Plan: I have had multiple discussions regarding his need to abstain from alcohol. No signs of withdrawal. Encouraged patient again to abstain from alcohol use. Discharge Planning Plan discharge home today. Problem Qualifiers (1) Diabetic nephropathy: Qualified Codes: E11.21 - Type 2 diabetes mellitus with diabetic nephropathy (2) Hypertension: Qualified Codes: I10 - Essential (primary) hypertension Vamsi Vazquez MD PhD Apr 18, 2017 08:47
[2017-04-18] MEDS ORDERED: LISI-515 PO (08:53)
[2017-04-18] MEDS ORDERED: MAGN400T3 PO (08:53)
[2017-04-18] MEDS ORDERED: BUPR150T3 PO (08:53)
[2017-04-18] MEDS ORDERED: RANI150T PO (08:53)
[2017-04-18] MEDS ORDERED: ONDA4TAB7 SL (08:53)
[2017-04-18] MEDS ORDERED: LORA-474 PO (08:56)
[2017-04-18] MEDS ORDERED: ASPIRIN EC 81 MG TABEC PO SCH (09:00)
[2017-04-18] MEDS ORDERED: VENLAFAXINE HCL XR 75 MG CAP PO SCH (09:00)
[2017-04-18] MEDS ORDERED: MAGNESIUM OXIDE 400 MG TAB PO SCH (09:00)
[2017-04-18 13:53] LABS: CHOLESTEROL 179 MG/DL (120-200)
[2017-04-18 13:55] LABS: CHOLESTEROL/ HDL RATIO 3.69 RATIO; HDL CHOLESTEROL 48.5 MG/DL (40.0-60.0); LDL CHOLESTEROL 98 MG/DL (0-99); TRIGLYCERIDES 164 MG/DL (42-150)
[2017-04-18 16:48] LABS: HEMOGLOBIN A1C 6.9 % (4.3-6.0)
== END 2017-04-18 11:27 | disposition home or self-care (01) ==
LOC: PHED 11:15 → PHEDA 14:11 → PH3B 15:14
PROVIDERS: ADMIT Family Medicine; ATTEND Family Medicine
DX: E11.43 Type 2 diabetes mellitus with diabetic autonomic (poly)neuropathy (principal); K31.84 Gastroparesis; R11.2 Nausea with vomiting, unspecified; E87.2 Acidosis; I10 Essential (primary) hypertension; E78.00 Pure hypercholesterolemia, unspecified; Z79.84 Long term (current) use of oral hypoglycemic drugs; Z79.899 Other long term (current) drug therapy; F10.10 Alcohol abuse, uncomplicated; F41.9 Anxiety disorder, unspecified
CPT/HCPCS: 80048; 80053; 80061; 82948; 83036; 83605; 85025; 96361; 96372; 96374; 96375; 96376; 99285; G0378; J1815; J2060; J2405; J7030

== ENCOUNTER 2017-07-22 17:52 | Emergency (ER) | payer OTHER ==
[~2017-07-22] VITALS: Ht 177.8 cm; Wt 77.0 kg
[~2017-07-22 17:52] MED LIST changes: +BUPR150T3 PO; +ONDA4TAB7 SL; +RANI150T PO
[2017-07-22 18:07] VITALS: BP 191/80; PULSE 69; RESP 18; TEMP 98.2; O2SAT 99
--- NOTE | 2017-07-22 18:38 | PD ---
HPI Chief Complaint: GI Complaint Time Seen by Provider: 18:26 Travel History International Travel<30 days: No Contact w/Intl Traveler<30days: No Traveled to known affect area: No History of Present Illness HPI Patient comes in complaining of nausea and vomiting episodes ongoing since this morning, states that he has had this episode ongoing for several years and has been diagnosed with gastroparesis. Patient denies any associated fever, headache, visual changes, chest pain, flank pain, diarrhea cough runny nose or sore throat. There is no alleviating factor, and is aggravated every time that he eats or drinkS. Allergy to amlodipine, atorvastatin, pravastatin and simvastatin. Past medical history significant for hypertension hypercholesterolemia gastroparesis inguinal hernia diabetes PFSH Past Medical History Hx Anticoagulant Therapy: No Asthma: No Autoimmune Disease: No Anxiety: No Depression: No Heart Rhythm Problems: No Cancer: Yes (PROSTATE IN 2011) Cardiovascular Problems: Yes (htn on meds) High Cholesterol: Yes Chemotherapy: No Chest Pain: No Congestive Heart Failure: No COPD: No Cerebrovascular Accident: No Diabetes: Yes Patient Takes Glucophage: Yes Diminished Hearing: No Diverticulitis: No Endocrine: Yes Gastrointestinal Disorders: Yes (GASTROPARESIS) GERD: No Genitourinary: No Headaches: No Hiatal Hernia: No Heparin Induced Thrombocytopen: No Hypertension: Yes Immune Disorder: No Implanted Vascular Access Dvce: No Kidney Stones: No Musculoskeletal: No Neurologic: No Psychiatric: No Reproductive: No Respiratory: No Immunizations Current: Yes Migraines: No Pancreatitis: No Radiation Therapy: Yes (IN 2011 prostate ca) Renal Failure: No Seizures: No Sickle Cell Disease: No Thyroid Disease: No Triglycerides - High: Yes Ulcer: No Influenza Vaccination: Yes PNEUMOCCOCAL Vaccine (Year): 2 Past Surgical History Abdominal Surgery: Yes (INGUINAL HERNIA) AICD: No Arteriovenous Shunt: No Cardiac Surgery: No Ear Surgery: No Endocrine Surgery: No Eye Surgery: No Genitourinary Surgery: Yes (PROSTATE) Gynecologic Surgery: No Insulin Pump: No Joint Replacement: No Neurologic Surgery: No Oral Surgery: No Pacemaker: No Thoracic Surgery: No Other Surgery: Yes (INGUINAL HERNIA REPAIR) Social History Alcohol Use: Yes (Socially DENIES) Tobacco Use: No Substance Use: No Allergies-Medications (Allergen,Severity, Reaction): Coded Allergies: amlodipine (Unverified Allergy, Severe, Twitching, 04/17/17) MYALGIA atorvastatin (Unverified Allergy, Severe, Twitching, 04/17/17) MYALGIA pravastatin (Unverified Allergy, Severe, Twitching, 04/17/17) MYALGIA simvastatin (Unverified Allergy, Severe, Twitching, 04/17/17) MYALGIA Reported Meds & Prescriptions Reported Meds & Active Scripts Active Ondansetron Odt 4 Mg Tab 4 Mg SL Q6HR PRN 10 Days Bupropion HCl ER 24 HR (Bupropion HCl) 150 Mg Tab 150 Mg PO DAILY 31 Days Magnesium Oxide 400 Mg Tab 400 Mg PO DAILY Metformin ER (Metformin HCl) 500 Mg [place] 500 Mg PO DAILY With evening meal Effexor XR 24 HR (Venlafaxine HCl) 75 Mg Cap 75 Mg PO DAILY Reported Aspirin 81 (Aspirin) 81 Mg Tabdr 81 Mg PO DAILY Metoprolol Tartrate 100 Mg Tab 100 Mg PO BID Review of Systems General / Constitutional: No: Fever Eyes: No: Visual changes HENT: No: Headaches Cardiovascular: No: Chest Pain or Discomfort Respiratory: No: Shortness of Breath Gastrointestinal: Positive: Nausea, Vomiting Genitourinary: No: Dysuria Musculoskeletal: No: Pain Skin: No Rash Neurologic: No: Weakness Psychiatric: No: Depression Endocrine: No: Polydipsia Hematologic/Lymphatic: No: Easy Bruising Physical Exam Narrative GENERAL: SKIN: Warm and dry. HEAD: Atraumatic. Normocephalic. EYES: Pupils equal and round. No scleral icterus. No injection or drainage. ENT: No nasal bleeding or discharge. Mucous membranes pink and moist. NECK: Trachea midline. No JVD. CARDIOVASCULAR: Regular rate and rhythm. RESPIRATORY: No accessory muscle use. Clear to auscultation. Breath sounds equal bilaterally. GASTROINTESTINAL: Abdomen soft, non-tender, nondistended. MUSCULOSKELETAL: Extremities without clubbing, cyanosis, or edema. No obvious deformities. NEUROLOGICAL: Awake and alert. No obvious cranial nerve deficits. Motor grossly within normal limits. Five out of 5 muscle strength in the arms and legs. Normal speech. PSYCHIATRIC: Appropriate mood and affect; insight and judgment normal. Data Data Last Documented VS Vital Signs Date Time Temp Pulse Resp B/P (MAP) Pulse Ox O2 Delivery O2 Flow Rate FiO2 07/22/17 19:15 99 07/22/17 18:07 98.2 69 18 191/80 (117) Orders Orders Complete Blood Count With Diff (07/22/17 18:33) Comprehensive Metabolic Panel (07/22/17 18:33) Lipase (07/22/17 18:33) Abdomen, Flat & Upright (07/22/17 ) Iv Access Insert/Monitor (07/22/17 18:33) Ecg Monitoring (07/22/17 18:33) Oximetry (07/22/17 18:33) NPO (07/22/17 18:33) Ondansetron Inj (Zofran Inj) (07/22/17 18:45) Sodium Chlor 0.9% 1000 Ml Inj (Ns 1000 M (07/22/17 18:33) Sodium Chloride 0.9% Flush (Ns Flush) (07/22/17 18:45) Electrocardiogram (07/22/17 18:33) Al-Mag Hy-Si 40-40-4 Mg/Ml Liq (Mag-Al P (07/22/17 18:45) Lidocaine 2% Viscous (Xylocaine 2% Visco (07/22/17 18:45) Metoclopramide Inj (Reglan Inj) (07/22/17 18:45) Troponin I (07/22/17 18:33) Blood Glucose (07/22/17 19:56) Sodium Chlor 0.9% 1000 Ml Inj (Ns 1000 M (07/22/17 20:00) Labs Laboratory Tests Test 07/22/17 18:45 White Blood Count 13.6 TH/MM3 Red Blood Count 4.95 MIL/MM3 Hemoglobin 14.8 GM/DL Hematocrit 45.0 % Mean Corpuscular Volume 90.9 FL Mean Corpuscular Hemoglobin 29.9 PG Mean Corpuscular Hemoglobin Concent 32.9 % Red Cell Distribution Width 12.2 % Platelet Count 257 TH/MM3 Mean Platelet Volume 7.6 FL Neutrophils (%) (Auto) 94.9 % Lymphocytes (%) (Auto) 2.4 % Monocytes (%) (Auto) 2.2 % Eosinophils (%) (Auto) 0.0 % Basophils (%) (Auto) 0.5 % Neutrophils # (Auto) 12.9 TH/MM3 Lymphocytes # (Auto) 0.3 TH/MM3 Monocytes # (Auto) 0.3 TH/MM3 Eosinophils # (Auto) 0.0 TH/MM3 Basophils # (Auto) 0.1 TH/MM3 CBC Comment DIFF FINAL Differential Comment Blood Urea Nitrogen 22 MG/DL Creatinine 1.40 MG/DL Random Glucose 216 MG/DL Total Protein 7.6 GM/DL Albumin 3.8 GM/DL Calcium Level 9.0 MG/DL Alkaline Phosphatase 66 U/L Aspartate Amino Transf (AST/SGOT) 37 U/L Alanine Aminotransferase (ALT/SGPT) 36 U/L Total Bilirubin 2.4 MG/DL Sodium Level 133 MEQ/L Potassium Level 5.6 MEQ/L Chloride Level 96 MEQ/L Carbon Dioxide Level 20.7 MEQ/L Anion Gap 16 MEQ/L Estimat Glomerular Filtration Rate 52 ML/MIN Troponin I LESS THAN 0.02 NG/ML Lipase 108 U/L [facility] Medical Decision Making Medical Screen Exam Complete: Yes Emergency Medical Condition: Yes Medical Record Reviewed: Yes Differential Diagnosis Small bowel obstruction versus ileus versus gastroparesis versus DKA versus atypical STEMI versus pancreatitis versus hepatitis Narrative Course Patient does not have any major leukocytosis, and most likely is reactive in nature. No evidence of anemia, no evidence of any thrombocytopenia either Although there is multiple electrolytes abnormalities it is consistent with repetitive episodes of emesis that had been ongoing all day. The patient was given 2 L of normal saline IV, as well as insulin for his elevated glucose of 216 which will also help to decrease his mildly elevated potassium of 5.6 Prerenal azotemia noted and treated Normal liver functions, normal pancreatic functions, and negative first set of cardiac enzymes Additionally all this information was shared with the patient, who stated that he is very well acquainted with his own medical condition and feels that this was related to his gastroparesis. He states that he only has prescription for Zofran, but he was feeling much better after he received Reglan in the emergency department. He was asking and requesting for Reglan prescription. The patient also was able to tolerate multiple p.o. challenges while in the emergency department Diagnosis Primary Impression: Dehydration Additional Impression: Vomiting secondary to gastroparesis Patient Instructions: Diabetic Gastroparesis (GEN), General Instructions Scripts Metoclopramide (Reglan) 10 Mg Tab 10 MG PO TIDAC, #12 TAB 0 Refills Prov: Anibal Strickland MD 07/22/17 Disposition: 01 DISCHARGE HOME Condition: Stable Anibal Strickland MD Jul 22, 2017 18:38
[2017-07-22] MEDS ORDERED: LIDOCAINE VISCOUS 2% SOLN 15 ML UDC PO ONE (18:45)
[2017-07-22] MEDS ORDERED: ALUMINUM/MAGNESIUM/SIMETH 30 ML CUP PO ONE (18:45)
[2017-07-22] MEDS ORDERED: SODIUM CHLORIDE 0.9% FLUSH 10 ML FLUSH IV FLUSH PRN (18:45)
[2017-07-22] MEDS ORDERED: ONDANSETRON HCL 4 MG/2 ML VIAL IVP ONE (18:45)
[2017-07-22] MEDS: METOCLOPRAMIDE HCL 10 MG/2 ML VIAL IV PUSH ONE ×2 (18:45→18:55)
[2017-07-22] MEDS: SODIUM CHLOR 0.9% 1000 ML INJ 1,000 ML IV SCH ×2 (18:55→20:39)
[2017-07-22 19:03] LABS: AUTOMATED NEUTROPHIL # 12.9 TH/MM3 (1.8-7.7); BASOPHIL # 0.1 TH/MM3 (0-0.2); BASOPHIL % 0.5 % (0.0-2.0); HEMOGLOBIN 14.8 GM/DL (13.0-17.0); LYMPH % 2.4 % (9.0-44.0); LYMPHOCYTE # 0.3 TH/MM3 (1.0-4.8); MEAN CELL VOLUME 90.9 FL (80.0-100.0); MEAN CORPUSCULAR HEMOGLOBIN 29.9 PG (27.0-34.0); MEAN CORPUSCULAR HGB CONC 32.9 % (32.0-36.0); MEAN PLATELET VOLUME 7.6 FL (7.0-11.0); MONO % 2.2 % (0.0-8.0); MONOCYTE # 0.3 TH/MM3 (0-0.9); NEUT % 94.9 % (16.0-70.0); PLATELET COUNT 257 TH/MM3 (150-450); RED BLOOD COUNT 4.95 MIL/MM3 (4.50-5.90); RED CELL DISTRIBUTION WIDTH 12.2 % (11.6-17.2); WHITE BLOOD COUNT 13.6 TH/MM3 (4.0-11.0)
[2017-07-22 19:11] LABS: CHLORIDE 96 MEQ/L (98-107); SODIUM (NA) 133 MEQ/L (136-145)
[2017-07-22 19:15] VITALS: O2SAT 99
[2017-07-22 19:15] LABS: ALBUMIN 3.8 GM/DL (3.4-5.0); BICARBONATE 20.7 MEQ/L (21.0-32.0); BLOOD UREA NITROGEN 22 MG/DL (7-18); GLUCOSE,RANDOM 216 MG/DL (74-106)
[2017-07-22 19:18] LABS: ALT (GPT) 36 U/L (12-78); AST (GOT) 37 U/L (15-37); GLOMERULAR FILTRATION RATE 52 ML/MIN (>89)
[2017-07-22 19:19] LABS: TOTAL BILIRUBIN ADULT 2.4 MG/DL (0.2-1.0); TOTAL PROTEIN 7.6 GM/DL (6.4-8.2)
[2017-07-22 19:20] LABS: ALKALINE PHOSPHATASE 66 U/L (45-117)
[2017-07-22 19:23] LABS: TROPONIN I LESS THAN 0.02 NG/ML (0.02-0.05)
--- NOTE | 2017-07-22 19:52 | RADRPT ---
EXAM DATE/TIME: 07/22/2017 18:37 [facility] COMPARISON: No previous studies available for comparison. INDICATIONS : Nausea and vomiting. MEDICAL HISTORY : Diabetes mellitus type 2. Hypertension. Carcinoma, prostate SURGICAL HISTORY : Inguinal hernia repair ENCOUNTER: Initial ACUITY: 1 day PAIN SCORE: 7/10 LOCATION: Bilateral abdomen FINDINGS: Supine and upright views of the abdomen were performed. The abdominal bowel gas pattern is normal. No air fluid levels are seen. No abnormal masses, calcifications, or organomegaly is seen. The visu alized lower lungs are clear. No evidence of free intraperitoneal gas. The osseous structures are u nremarkable. CONCLUSION: Nonobstructive bowel gas pattern. Matthew Ambrose MD on July 22, 2017 at 19:49 Board Certified Radiologist. This report was verified electronically.
[2017-07-22] MEDS ORDERED: SODIUM CHLOR 0.9% 1000 ML INJ 1,000 ML IV ONE (20:00)
[2017-07-22] MEDS ORDERED: REGL10TA5 PO (20:35)
[2017-07-22] MEDS ORDERED: INSULIN HUMAN REGULAR 1,000 UNITS/10 ML VIAL IV PUSH ONE (20:45)
[2017-07-22 21:25] VITALS: BP 189/87
--- NOTE | 2017-07-22 23:27 | EKG ---
Date Performed: 07/22/2017 Time Performed: 18:42:53 PTAGE: 57 years EKG: Sinus rhythm NORMAL ECG PREVIOUS TRACING : 01/13/2017 20.10 Since the previous tracing, no significant change noted DOCTOR: Adi Velazquez Interpretating Date/Time 07/22/2017 23:25:53
== END 2017-07-22 21:28 | disposition home or self-care (01) ==
LOC: PHED 17:52
DX: E86.0 Dehydration (principal); K31.84 Gastroparesis; I10 Essential (primary) hypertension; E78.00 Pure hypercholesterolemia, unspecified; E11.9 Type 2 diabetes mellitus without complications; Z85.46 Personal history of malignant neoplasm of prostate
CPT/HCPCS: 74019; 80053; 83690; 84484; 85025; 93005; 96361; 96374; 96375; 99285; J1815; J2405; J7030; J2765

== ENCOUNTER 2017-09-01 14:01 | Emergency (ER) | payer OTHER ==
[~2017-09-01] VITALS: Ht 177.8 cm; Wt 73.0 kg
[~2017-09-01 14:01] MED LIST changes: -LISI-515 PO; -LORA-474 PO; -RANI150T PO; +REGL10TA5 PO; -THERM PO
[2017-09-01 14:07] VITALS: BP 194/121; PULSE 138; RESP 16; TEMP 97.9; O2SAT 97
[2017-09-01] MEDS ORDERED: ONDANSETRON HCL 4 MG/2 ML VIAL IV PUSH ONE ×2 (14:30→15:00)
[2017-09-01] MEDS ORDERED: SODIUM CHLOR 0.9% 1000 ML INJ 1,000 ML IV ONE ×2 (14:30→15:45)
--- NOTE | 2017-09-01 14:39 | PD ---
HPI Chief Complaint: GI Complaint Time Seen by Provider: 14:23 Travel History International Travel<30 days: No Contact w/Intl Traveler<30days: No Traveled to known affect area: No History of Present Illness HPI 57-year-old male with history of gastroparesis here for nausea and vomiting for the last few days. Patient states that he is unable to keep his medications down, he denies any abdominal pain, he has no chest pain or shortness of breath , no diarrhea or blood in the stool, last bowel movement was this morning was normal. Patient is able to hold fluids down but no solids. Patient was here back in June for same reason and he says that the gastroparesis is been going on for years and I sometimes get those episodes of vomiting that only responded to IV Zofran and IV fluids. PFSH Past Medical History Hx Anticoagulant Therapy: Yes (asa 81mg) Asthma: No Autoimmune Disease: No Anxiety: No Depression: No Heart Rhythm Problems: No Cancer: Yes (PROSTATE IN 2011) Cardiovascular Problems: Yes (htn on meds unable to med down today) High Cholesterol: Yes Chemotherapy: No Chest Pain: No Congestive Heart Failure: No COPD: No Cerebrovascular Accident: No Diabetes: Yes (type 2) Patient Takes Glucophage: Yes Diminished Hearing: No Diverticulitis: No Endocrine: Yes Gastrointestinal Disorders: Yes (GASTROPARESIS) GERD: No Genitourinary: No Headaches: No Hiatal Hernia: No Heparin Induced Thrombocytopen: No Hypertension: Yes Immune Disorder: No Implanted Vascular Access Dvce: No Kidney Stones: No Musculoskeletal: No Neurologic: No Psychiatric: No Reproductive: No Respiratory: No Immunizations Current: Yes Migraines: No Pancreatitis: No Radiation Therapy: Yes (IN 2011 prostate ca) Renal Failure: No Seizures: No Sickle Cell Disease: No Thyroid Disease: No Triglycerides - High: Yes Ulcer: No Influenza Vaccination: Yes PNEUMOCCOCAL Vaccine (Year): 2 Past Surgical History Abdominal Surgery: Yes (INGUINAL HERNIA) AICD: No Arteriovenous Shunt: No Cardiac Surgery: No Ear Surgery: No Endocrine Surgery: No Eye Surgery: No Genitourinary Surgery: Yes (PROSTATE) Gynecologic Surgery: No Insulin Pump: No Joint Replacement: No Neurologic Surgery: No Oral Surgery: No Pacemaker: No Thoracic Surgery: No Other Surgery: Yes (INGUINAL HERNIA REPAIR) Social History Alcohol Use: Yes (Socially DENIES) Tobacco Use: No Substance Use: No Allergies-Medications (Allergen,Severity, Reaction): Coded Allergies: amlodipine (Unverified Allergy, Severe, Twitching, 09/01/17) MYALGIA atorvastatin (Unverified Allergy, Severe, Twitching, 09/01/17) MYALGIA pravastatin (Unverified Allergy, Severe, Twitching, 09/01/17) MYALGIA simvastatin (Unverified Allergy, Severe, Twitching, 09/01/17) MYALGIA Reported Meds & Prescriptions Reported Meds & Active Scripts Active Zofran Odt (Ondansetron Odt) 8 Mg Tab 8 Mg SL Q12H PRN Reglan (Metoclopramide HCl) 10 Mg Tab 10 Mg PO TIDAC Bupropion HCl ER 24 HR (Bupropion HCl) 150 Mg Tab 150 Mg PO DAILY 31 Days Magnesium Oxide 400 Mg Tab 400 Mg PO DAILY Metformin ER (Metformin HCl) 500 Mg [place] 500 Mg PO DAILY With evening meal Effexor XR 24 HR (Venlafaxine HCl) 75 Mg Cap 75 Mg PO DAILY Reported Aspirin 81 (Aspirin) 81 Mg Tabdr 81 Mg PO DAILY Metoprolol Tartrate 100 Mg Tab 100 Mg PO BID Review of Systems Except as stated in HPI: all other systems reviewed are Neg Physical Exam Narrative GENERAL: Alert oriented 3 no acute distress. SKIN: Focused skin assessment warm/dry. HEAD: Atraumatic. Normocephalic. EYES: Pupils equal and round. No scleral icterus. No injection or drainage. ENT: No nasal bleeding or discharge. Mucous membranes pink and moist. NECK: Trachea midline. No JVD. CARDIOVASCULAR: Regular rate and rhythm. No murmur appreciated. RESPIRATORY: No accessory muscle use. Clear to auscultation. Breath sounds equal bilaterally. GASTROINTESTINAL: Abdomen soft, non-tender, nondistended. Hepatic and splenic margins not palpable. MUSCULOSKELETAL: No obvious deformities. No clubbing. No cyanosis. No edema. NEUROLOGICAL: Awake and alert. No obvious cranial nerve deficits. Motor grossly within normal limits. Normal speech. PSYCHIATRIC: Appropriate mood and affect; insight and judgment normal. Data Data Last Documented VS Vital Signs Date Time Temp Pulse Resp B/P (MAP) Pulse Ox O2 Delivery O2 Flow Rate FiO2 09/01/17 17:05 105 18 177/76 (109) 98 09/01/17 15:41 Room Air 09/01/17 14:07 97.9 Orders Orders Complete Blood Count With Diff (09/01/17 14:26) Comprehensive Metabolic Panel (09/01/17 14:26) Lipase (09/01/17 14:26) Urinalysis - C+S If Indicated (09/01/17 14:26) Ondansetron Inj (Zofran Inj) (09/01/17 14:30) Sodium Chlor 0.9% 1000 Ml Inj (Ns 1000 M (09/01/17 14:30) Ondansetron Inj (Zofran Inj) (09/01/17 15:00) Labetalol Inj (Trandate Inj) (09/01/17 15:12) Sodium Chlor 0.9% 1000 Ml Inj (Ns 1000 M (09/01/17 15:45) Promethazine Inj (Phenergan Inj) (09/01/17 16:15) Ed Discharge Order (09/01/17 16:33) Labs Laboratory Tests Test 09/01/17 14:20 09/01/17 15:00 White Blood Count 12.6 TH/MM3 Red Blood Count 5.63 MIL/MM3 Hemoglobin 17.3 GM/DL Hematocrit 51.8 % Mean Corpuscular Volume 92.1 FL Mean Corpuscular Hemoglobin 30.7 PG Mean Corpuscular Hemoglobin Concent 33.3 % Red Cell Distribution Width 13.1 % Platelet Count 392 TH/MM3 Mean Platelet Volume 7.1 FL Neutrophils (%) (Auto) 77.0 % Lymphocytes (%) (Auto) 14.8 % Monocytes (%) (Auto) 7.2 % Eosinophils (%) (Auto) 0.3 % Basophils (%) (Auto) 0.7 % Neutrophils # (Auto) 9.7 TH/MM3 Lymphocytes # (Auto) 1.9 TH/MM3 Monocytes # (Auto) 0.9 TH/MM3 Eosinophils # (Auto) 0.0 TH/MM3 Basophils # (Auto) 0.1 TH/MM3 CBC Comment DIFF FINAL Differential Comment Blood Urea Nitrogen 14 MG/DL Creatinine 1.20 MG/DL Random Glucose 110 MG/DL Total Protein 8.2 GM/DL Albumin 4.1 GM/DL Calcium Level 9.0 MG/DL Alkaline Phosphatase 74 U/L Aspartate Amino Transf (AST/SGOT) 33 U/L Alanine Aminotransferase (ALT/SGPT) 30 U/L Total Bilirubin 0.8 MG/DL Sodium Level 138 MEQ/L Potassium Level 4.4 MEQ/L Chloride Level 99 MEQ/L Carbon Dioxide Level 21.3 MEQ/L Anion Gap 18 MEQ/L Estimat Glomerular Filtration Rate 62 ML/MIN Lipase 141 U/L Urine Collection Type CLEAN CATCH Urine Color YELLOW Urine Turbidity CLEAR Urine pH 5.5 Urine Specific [place] GREATER/EQUAL 1.030 Urine Protein 300 OR GREATER mg/dL Urine Glucose (UA) NEG mg/dL Urine Ketones NEG mg/dL Urine Occult Blood SMALL Urine Nitrite NEG Urine Bilirubin NEG Urine Urobilinogen 0.2 MG/DL Urine Leukocyte Esterase NEG Urine RBC 0-3 /hpf Urine WBC 0-2 /hpf Urine Squamous Epithelial Cells 0-3 /hpf Urine Hyaline Casts 6-9 /lpf Microscopic Urinalysis Comment CULT NOT INDICATED MDM Medical Decision Making Medical Screen Exam Complete: Yes Emergency Medical Condition: Yes Differential Diagnosis Gastroenteritis, gastritis, pancreatitis, UTI, pyelonephritis. Narrative Course 57-year-old male presented here for evaluation for gastroparesis. Labs are within normal limits, vitals are stable except for elevated blood pressure and patient had multiple symptoms of nausea vomiting here in the ER but improved with IV fluids and Zofran. Patient is stable to be discharged and give him some Zofran ODT to try at home and told him to return to ER if symptoms change or do not improve. For now is feeling much better after the fluids and is ready to be discharged. Laboratory Tests Test 09/01/17 14:20 09/01/17 15:00 White Blood Count 12.6 TH/MM3 Red Blood Count 5.63 MIL/MM3 Hemoglobin 17.3 GM/DL Hematocrit 51.8 % Mean Corpuscular Volume 92.1 FL Mean Corpuscular Hemoglobin 30.7 PG Mean Corpuscular Hemoglobin Concent 33.3 % Red Cell Distribution Width 13.1 % Platelet Count 392 TH/MM3 Mean Platelet Volume 7.1 FL Neutrophils (%) (Auto) 77.0 % Lymphocytes (%) (Auto) 14.8 % Monocytes (%) (Auto) 7.2 % Eosinophils (%) (Auto) 0.3 % Basophils (%) (Auto) 0.7 % Neutrophils # (Auto) 9.7 TH/MM3 Lymphocytes # (Auto) 1.9 TH/MM3 Monocytes # (Auto) 0.9 TH/MM3 Eosinophils # (Auto) 0.0 TH/MM3 Basophils # (Auto) 0.1 TH/MM3 CBC Comment DIFF FINAL Differential Comment Blood Urea Nitrogen 14 MG/DL Creatinine 1.20 MG/DL Random Glucose 110 MG/DL Total Protein 8.2 GM/DL Albumin 4.1 GM/DL Calcium Level 9.0 MG/DL Alkaline Phosphatase 74 U/L Aspartate Amino Transf (AST/SGOT) 33 U/L Alanine Aminotransferase (ALT/SGPT) 30 U/L Total Bilirubin 0.8 MG/DL Sodium Level 138 MEQ/L Potassium Level 4.4 MEQ/L Chloride Level 99 MEQ/L Carbon Dioxide Level 21.3 MEQ/L Anion Gap 18 MEQ/L Estimat Glomerular Filtration Rate 62 ML/MIN Lipase 141 U/L Urine Collection Type CLEAN CATCH Urine Color YELLOW Urine Turbidity CLEAR Urine pH 5.5 Urine Specific [place] GREATER/EQUAL 1.030 Urine Protein 300 OR GREATER mg/dL Urine Glucose (UA) NEG mg/dL Urine Ketones NEG mg/dL Urine Occult Blood SMALL Urine Nitrite NEG Urine Bilirubin NEG Urine Urobilinogen 0.2 MG/DL Urine Leukocyte Esterase NEG Urine RBC 0-3 /hpf Urine WBC 0-2 /hpf Urine Squamous Epithelial Cells 0-3 /hpf Urine Hyaline Casts 6-9 /lpf Microscopic Urinalysis Comment CULT NOT INDICATED Diagnosis Primary Impression: Gastroparesis Additional Instructions: Follow-up with primary care physician and return to your symptoms change or do not improve. Scripts Ondansetron Odt (Zofran Odt) 8 Mg Tab 8 MG SL Q12H Y for NAUSEA OR VOMITING, #30 TAB 0 Refills Prov: Shree Ho MD 09/01/17 Disposition: 01 DISCHARGE HOME Condition: Stable Shree Ho MD Sep 01, 2017 14:39
[2017-09-01 14:45] LABS: AUTOMATED NEUTROPHIL # 9.7 TH/MM3 (1.8-7.7); BASOPHIL # 0.1 TH/MM3 (0-0.2); BASOPHIL % 0.7 % (0.0-2.0); EOSINOPHIL % 0.3 % (0.0-4.0); HEMATOCRIT 51.8 % (39.0-51.0); HEMOGLOBIN 17.3 GM/DL (13.0-17.0); LYMPH % 14.8 % (9.0-44.0); LYMPHOCYTE # 1.9 TH/MM3 (1.0-4.8); MEAN CELL VOLUME 92.1 FL (80.0-100.0); MEAN CORPUSCULAR HEMOGLOBIN 30.7 PG (27.0-34.0); MEAN CORPUSCULAR HGB CONC 33.3 % (32.0-36.0); MEAN PLATELET VOLUME 7.1 FL (7.0-11.0); MONO % 7.2 % (0.0-8.0); MONOCYTE # 0.9 TH/MM3 (0-0.9); PLATELET COUNT 392 TH/MM3 (150-450); RED BLOOD COUNT 5.63 MIL/MM3 (4.50-5.90); RED CELL DISTRIBUTION WIDTH 13.1 % (11.6-17.2); WHITE BLOOD COUNT 12.6 TH/MM3 (4.0-11.0)
[2017-09-01 14:48] LABS: CHLORIDE 99 MEQ/L (98-107); SODIUM (NA) 138 MEQ/L (136-145)
[2017-09-01 14:53] VITALS: BP 214/114; PULSE 124; RESP 18; O2SAT 98
[2017-09-01 14:53] LABS: ALBUMIN 4.1 GM/DL (3.4-5.0); BICARBONATE 21.3 MEQ/L (21.0-32.0); BLOOD UREA NITROGEN 14 MG/DL (7-18); GLUCOSE,RANDOM 110 MG/DL (74-106)
[2017-09-01 14:56] LABS: ALT (GPT) 30 U/L (12-78); AST (GOT) 33 U/L (15-37); GLOMERULAR FILTRATION RATE 62 ML/MIN (>89)
[2017-09-01 14:57] LABS: TOTAL BILIRUBIN ADULT 0.8 MG/DL (0.2-1.0)
[2017-09-01 14:58] LABS: TOTAL PROTEIN 8.2 GM/DL (6.4-8.2)
[2017-09-01 14:59] LABS: ALKALINE PHOSPHATASE 74 U/L (45-117)
[2017-09-01] MEDS ORDERED: LABETALOL HCL 100 MG/20 ML VIAL IV PUSH STA (15:12)
[2017-09-01 15:14] LABS: BILIRUBIN, URINE NEG (NEG); BLOOD, URINE SMALL (NEG); GLUCOSE,URINE NEG (NEG); KETONE, URINE NEG (NEG); NITRITE,URINE NEG (NEG); PH, URINE 5.5 (5.0-8.5); URINE COLOR YELLOW (YELLW/STRAW); URINE LEUKOCYTE ESTERASE NEG (NEG)
[2017-09-01 15:27] LABS: RBC, URINE 0-3 /hpf (0-3); WBC, URINE 0-2 /hpf (0-5)
[2017-09-01 15:28] LABS: SQUAMOUS EPITHELIAL CELL URINE 0-3 /hpf (0-5)
[2017-09-01 15:41] VITALS: BP 151/100; PULSE 102; RESP 16; O2SAT 97
[2017-09-01] MEDS ORDERED: PROMETHAZINE INJ 25 MG/ML VIAL IM ONE (16:15)
[2017-09-01] MEDS ORDERED: ZOFR8TAB4 SL (16:33)
[2017-09-01 17:05] VITALS: BP 177/76
== END 2017-09-01 17:07 | disposition home or self-care (01) ==
LOC: PHED 14:01
DX: K31.84 Gastroparesis (principal); E78.00 Pure hypercholesterolemia, unspecified; I10 Essential (primary) hypertension; E11.9 Type 2 diabetes mellitus without complications
CPT/HCPCS: 80053; 81001; 83690; 85025; 96361; 96372; 96374; 96375; 96376; 99284; J2405; J2550; J7030